=== PATIENT | female | born 1965 | race Caucasian/White ===

== ENCOUNTER → 2019-03-19 10:59 | Outpatient (CLI) | payer OTHER, SELFPAY ==
--- NOTE | 2019-03-19 | DI.US.S_ITS ---
PROCEDURE: US PELVIC COMPLETE INDICATIONS: POSTMENOPAUSAL BLEEDING TECHNIQUE: Real-time scanning was performed of the pelvic organs, with image documentation. Additional endovaginal scanning was necessary due to incomplete visualization of the adnexal and endometrial structures by transabdominal scanning. COMPARISON: None. FINDINGS: Transabdominal scanning: Limited scanning through the kidneys shows no hydronephrosis. No pathologic free abdominal or pelvic fluid. Endovaginal scanning: Uterus: Uterus is normal in size at 4.1 x 5.7 x 7.7 cm cm. The endometrium measures 8.5 mm in combined thickness and appears mildly heterogeneous, raising concern for an early manifestation of underlying neoplasm. Note is made of a midline posterior intramural 1.1 cm fibroid and a right sided posterior intramural 1.4 cm maximal dimension fibroid. Ovaries: The ovaries bilaterally were interrogated but only the right ovary could be located measuring 2.5 x 1.9 x 1.2 cm. Overlying bowel gas obscured visualization of the left ovary. IMPRESSION: Mildly heterogeneous endometrial lining in a postmenopausal patient measuring up to 8.5 mm in maximal combined thickness. This raises concern for whether an early endometrial mass lesion may be superimposed. Gynecological consultation for consideration of endometrial biopsy is recommended given the history of postmenopausal spotting intermittently for over 1.5 years. Nonvisualization of the left ovary, normal appearing right ovary. Dictated by: Riaz Luna M.D. on 03/19/2019 at 13:53 Approved by: Riaz Luna M.D. on 03/19/2019 at 13:56
== END ==
PROVIDERS: Family Provider Family Medicine; PCP Family Medicine; Visit Provider Nurse Practitioner Family
DX: N95.0 Postmenopausal bleeding (principal); D25.1 Intramural leiomyoma of uterus
CPT/HCPCS: 76830; 76856

== ENCOUNTER → 2019-04-10 11:11 | Outpatient (CLI) | payer OTHER, SELFPAY ==
--- NOTE | 2019-04-10 | DI.MG.S_ITS ---
BILATERAL DIGITAL SCREENING MAMMOGRAM 3D/2D WITH CAD: 04/10/2019 CLINICAL: Routine screening. Comparison is made to exams dated: 07/12/2017 mammogram, 06/27/2017 mammogram, and 05/31/2016 mammogram - [facility]. There are scattered fibroglandular elements in both breasts. Current study was also evaluated with a Computer Aided Detection (CAD) system. No significant masses, calcifications, or other findings are seen in either breast. There has been no significant interval change. IMPRESSION: NEGATIVE There is no mammographic evidence of malignancy. A 1 year screening mammogram is recommended. This exam was interpreted at Station ID: [id number]. NOTE: For mammograms, a report in lay terms will be sent to the patient. Approximately 15% of breast malignancies will not be visualized mammographically. In the management of a palpable breast mass, a negative mammogram must not discourage biopsy of a clinically suspicious lesion. Electronically Signed By: Diamond taylor/cisco:04/10/2019 13:15:47 letter sent: Normal Exam ACR BI-RADS Category 1: Negative [id number]
== END ==
PROVIDERS: PCP Family Medicine; Visit Provider Family Medicine
DX: Z13.21 Encounter for screening for nutritional disorder (principal)
CPT/HCPCS: 77063; 77067

== ENCOUNTER 2019-05-07 11:50 | Day surgery (SDC) | payer OTHER, SELFPAY ==
[2019-04-16 14:01] VITALS: BMI 41.5
[2019-05-07] VITALS (10 sets, daily range): BP systolic 118–151; BP diastolic 74–89; PULSE 60–83; RESP 12–16; TEMP 36.8–37; O2SAT 92–100; BMI 40.2
--- NOTE | 2019-05-07 | PATH_ITS ---
[facility] Accession Number: [id number] . 01 Material submitted: . endometrium - ENDOMETRIAL CURETTINGS . 02 Diagnosis: Endometrial Curettings: Fragments of weakly proliferative endometrial tissue and strips of endometrial glandular epithelium; negative for glandular hyperplasia, cytologic atypia, and malignancy. Avulsed portions of squamous and metaplastic squamous mucosa with reactive features; negative for squamous dysplasia and malignancy. V 05/11/2019 0946 Local . 02 Electronically signed: . Claribel Luu MD, Pathologist NPI- [id number] . 01 Gross description: . Received in formalin, labeled endometrial curettings, is turbid mucoid material containing multiple fragments of red-brown tissue (3.6 x 3.0 x 0.3 cm in aggregate). Filtered and entirely submitted in cassette A1. ([id number]) /MRV 05/08/2019 1647 Local . 02 Pathologist provided ICD-10: N85.00 . 02 CPT . 353505 Performed at: 01 [facility] [address] [facility], [place] [employer], [place] [id number] MD Sandeep Akins MD Phone: [phone] Performed at: 02 [facility] [address] [place], [place] [id number] MD Kim Ignacio MD Phone: [phone]
[2019-05-07] MEDS: LACTATED RINGERS 1,000 ML 100 ML IV (13:04)
--- NOTE | 2019-05-07 14:55 | PM.PREOP ---
Pre-operative Note Interval Note History & Physical reviewed/Exam performed by Physician: Yes Changes to H&P: No H&P completed within 30 days and has changed as indicated here:: See outpatient note 04/15/2019
--- NOTE | 2019-05-07 16:07 | SUR.OPER ---
Lithotomy on padded OR bed, head on pillow, arms secured on padded arm boards at <90 degrees abduction. Legs secured in padded yellow fins stirrups.
--- NOTE | 2019-05-07 16:31 | PM.OP.1 ---
Operative Date/Time/Diagnoses Date of procedure: 05/07/19 Time of procedure: 16:32 Pre-op diagnosis: Postmenopausal bleeding Post-op diagnosis: same Procedure & Clinicians Procedure: Hysteroscopy D&C Same procedure as scheduled: Yes Indications: Postmenopausal bleeding Surgeon: Ramya Paula Click Yes if Unassisted: Yes Anesthesia Type: General Operative Notes Findings: Normal exam under anesthesia. Thin endometrium without any intrauterine pathology except for uterine septum Closure Type: not applicable Specimen(s): other (Endometrial curettings) Estimated Blood Loss (mL): 5 Blood products transfused: none Procedure in detail: The patient was brought to the operating room where she underwent general anesthesia. She was placed in low stirrups She was prepped and draped in usual sterile fashion with pulsatile stockings in place and functional, warming in place, antibiotics in prior to beginning the case. Her bladder was drained with in and out catheter. A single-tooth tenaculum was placed on the anterior lip of the cervix and the uterus dilated to #8 Hegar dilator. The hysteroscope was placed into the uterus with a sorbitol solution running and under constant suction. There were no abnormalities that needed to be removed. A endometrial curettage was performed. The endometrial curettage was sent to pathology. The patient went to recovery room in good condition counts of instruments and sponges were correct. Estimated blood loss less than 5 mL. The sorbitol solution I=O approximately 2000 mL. Complications: none Post-operative Condition: stable Disposition: same day surgery Plan for aftercare: Routine post hysteroscopy
[2019-05-07] MEDS: HYDROMORPHONE 2 MG INJ 0.5 MG IV ×4 (16:35→16:50)
== END 2019-05-07 17:38 | disposition home or self-care (01) ==
PROVIDERS: PCP Nurse Practitioner Family; Visit Provider Specialist
PROC: 0UDB8ZZ Extraction of Endometrium, Via Natural or Artificial Opening Endoscopic (ICD-10-PCS; CPT 58558; principal; 2019-05-07 13:15)
DX: N85.00 Endometrial hyperplasia, unspecified (principal); N95.0 Postmenopausal bleeding; Q51.20 Other doubling of uterus, unspecified; E66.01 Morbid (severe) obesity due to excess calories; Z68.41 Body mass index [BMI] 40.0-44.9, adult; G47.33 Obstructive sleep apnea (adult) (pediatric)
CPT/HCPCS: 58558; J1100; J1170; J1885; J2250; J2405; J2704; J3010

== ENCOUNTER 2019-09-14 20:42 | Emergency (ER) | payer OTHER, SELFPAY ==
[2019-09-14 20:45] VITALS: BP 149/79; PULSE 92; RESP 18; TEMP 37.3; O2SAT 96
--- NOTE | 2019-09-14 21:48 | ED.EXTPRO ---
HPI - Extremity Problem General Chief complaint: Extremity Problem,Nontraumatic Stated complaint: right soulder pain Time Seen by Provider: 09/14/19 21:31 Source: patient Mode of arrival: Ambulatory Limitations: no limitations History of Present Illness HPI Narrative: 54-year-old female here for evaluation of right shoulder pain. Patient states she woke up this morning with pain in the shoulder. Has progressively worsened throughout the day. No known trauma. Went to physical therapy today for her bilateral knee pain after that shoulder started to hurt more. Related Data Home Medications Medication Instructions Recorded Confirmed levothyroxine 25 mcg capsule 50 mcg PO DAILY 11/19/18 06/05/19 ibuprofen 600 mg PO Q6H PRN 05/07/19 06/05/19 Respironics Dreamstation CPAP #1 ea 06/04/19 06/04/19 Allergies Allergy/AdvReac Type Severity Reaction Status Date / Time adhesive [ADHESIVE] Allergy Unknown FROM SLEEP Unverified 04/15/19 14:27 LAB ON NECK Review of Systems Constitutional Constitutional: Denies fever(s) ENT Ears, Nose, Mouth, and Throat: Denies disequilibrium Cardiovascular Cardiovascular: Denies chest pain and Denies dyspnea Respiratory Respiratory: Denies dyspnea Gastrointestinal Gastrointestinal: Denies abdominal pain Musculoskeletal Musculoskeletal: Denies tingling Comments: Right shoulder pain Integumentary/Breasts Skin/Breast: Denies rash Neurologic Neurologic: Denies tingling, Denies paresthesias and Denies disequilibrium Hematologic/Lymphatic Hematologic/Lymphatic: Denies easy bleeding and Denies easy bruising Patient History Medical History Hypothyroidism (Suspected) Insomnia (Chronic) Morbid obesity with body mass index of 40.0-49.9 (Chronic) Obstructive sleep apnea of adult (Chronic) Periodic limb movement disorder (PLMD) (Suspected) Radius fracture (Inactive) Social History marital status: details: to Austyn, lives in [place]. disabled. number of children: 2 household members: spouse lives independently: Yes caregiver/support person: No housing: house pets and animals: Yes (2 dogs) occupational status: employed Smoking Status: Never smoker alcohol intake: current substance use type: does not use Smoking Status: Never smoker Exam Initial Vital Signs Initial Vital Signs: Vital Signs Temperature 99.1 F 09/14/19 20:45 Pulse Rate 92 H 09/14/19 20:45 Respiratory Rate 18 09/14/19 20:45 Blood Pressure 149/79 H 09/14/19 20:45 Pulse Oximetry 96 09/14/19 20:45 Const General: cooperative, healthy appearing and comfortable Resp Effort & Inspection: normal respiratory effort Auscultation: clear to auscultation bilaterally Cardio Rate: regular rate Rhythm: regular rhythm Back/Spine/Pelvis Cervical Spine: No cervical spinal tenderness Other: Negative Spurling Skin Lesions: no lesions Rashes: no rashes Neuro Motor: muscle tone normal throughout Sensory Exam: no sensory deficits noted Extrem Other: Patient with tenderness to palpation over the biceps tendon. Positive Neer test. Positive [place]ur test. Patient only able to abduct her arm to 30? without onset of pain. Passively able to abduct her arm past 90?. No tenderness palpation of the AC joint. No scapular tenderness. Psych Appearance: grossly normal and well kempt Course Orders Ordered: Discontinued Medications Acetaminophen/Codeine Phosphate (Tylenol #3 Prepack) 1 bottle MISC SEEINSTR ONE Stop: 09/14/19 22:13 Last Admin: 09/14/19 22:26 Dose: 1 bottle Documented by: CHERYL Ketorolac Tromethamine (Toradol) 30 mg IM NOW ONE Stop: 09/14/19 22:13 Last Admin: 09/14/19 22:26 Dose: 30 mg Documented by: CHERYL Vital Signs Vital signs: Vital Signs - 8 hr 09/14/19 20:45 Temperature 99.1 F Pulse Rate 92 H Respiratory Rate 18 Blood Pressure 149/79 H Pulse Oximetry 96 MDM - Extremity (Nontraumatic) [facility] Narrative Medical decision making narrative: She is neurovascularly intact. No trauma. Low suspicion for bony injury. Will hold on radiologic studies. No radicular symptoms. Low suspicion that this is a cervical radiculopathy. I suspect this is either a biceps tendinopathy verses a rotator cuff sprain or both. She has some physical exam findings of each of these. I did discuss this with her. We did discuss potential shoulder steroid injection however she opted to hold on that for now. Will treat symptomatically. We did discuss the importance of keeping her moving to avoid a frozen shoulder. She was given return precautions and follow-up instructions. She expressed understanding and agreement with plan. Discharge Plan Departure Patient Disposition: Home Clinical Impression: Acute shoulder pain Qualifiers: Laterality: right Qualified Code(s): M25.511 - Pain in right shoulder Discharge Date/Time: 09/14/19 22:34 Instructions: DI for Shoulder Pain Activity Restrictions/Additional Instructions: Tomorrow contact your primary provider for a follow-up. Your early restricted in your activity by the symptoms that you are having. Return to the emergency department for any new or worsening symptoms Prescriptions: No Action ibuprofen 600 mg Tablet 600 mg PO Q6H PRN (Reason: Pain (Scale Score 4-6)) RF: 0 levothyroxine 25 mcg capsule 50 mcg PO DAILY RF: 0 (DME) Respironics Dreamstation CPAP Qty: 1 RF: 0 Referrals: Harley Lopez MD [Primary Care Provider] -
[2019-09-14] MEDS: KETOROLAC 60 MG/2 ML VIAL 30 MG IM (22:26)
[2019-09-14] MEDS: CODEINE/APAP 30/300 PREPACK 1 BOTTLE MISC (22:26)
== END 2019-09-14 22:34 | disposition home or self-care (01) ==
PROVIDERS: Emergency Provider Emergency Medicine; PCP Family Medicine
DX: M25.511 Pain in right shoulder (principal)
CPT/HCPCS: 96372; 99283; J1885

== ENCOUNTER 2019-09-15 07:14 | Emergency (ER) | payer OTHER, SELFPAY ==
[2019-09-15 07:15] VITALS: BP 151/75; PULSE 80; RESP 18; TEMP 37.2; O2SAT 99
[2019-09-15 07:37] VITALS: PULSE 80
--- NOTE | 2019-09-15 07:48 | ED.EXTPRO ---
HPI - Extremity Problem General Chief complaint: Extremity Problem,Nontraumatic Stated complaint: right shoulder pain hurts tingling fingers Time Seen by Provider: 09/15/19 07:44 Source: patient Mode of arrival: Ambulatory Limitations: no limitations History of Present Illness HPI Narrative: Chief complaint: right shoulder pain HPI: The patient is a 54-year-old female who was seen the night before by Dr. Blackwell. He diagnosed her to have a biceps tendinopathy and/or right rotator cuff strain partial tear. The patient states that she went home and went to bed and woke up with worse more intense pain and discomfort associated with shooting pains down her arm to her fingers associated with numbness and tingling. She denied any neck pain jaw pain. Since being discharged she denies any fall or injury or sleeping on her shoulder. She uses CPAP for sleep apnea. She denied any cough. The pain is intolerable and 10/10 in intensity. Old records reveal that she was on hydrocodone which was discontinued. When sitting and resting her pain was 8/10 in intensity. When trying to move it it was 10/10 in nature. She has fractured her left wrist in the past and has a plate of and screws with some open reduction. The patient denies any fever chills sweats. Pain and discomfort of her cause nausea or vomiting. She has no other complaints. 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 She states that in this condition she cannot work. Related Data Home Medications Medication Instructions Recorded Confirmed Respironics Dreamstation CPAP #1 ea 06/04/19 09/15/19 calcium carbonate-vitamin D3 1 tab PO BID 09/15/19 09/15/19 [Calcium 500 + D] levothyroxine 50 mcg PO DAILY 09/15/19 09/15/19 multivitamin 1 tab PO DAILY 09/15/19 09/15/19 turmeric 1 cap PO BID 09/15/19 09/15/19 Previous Rx's Medication Instructions Recorded cyclobenzaprine 10 mg PO TID PRN #14 tab 09/15/19 hydrocodone-acetaminophen [[place]] 1 tab PO Q8H PRN #14 tab 09/15/19 naproxen [Naprosyn] 500 mg PO BID PRN #20 tab 01/28/20 Allergies Allergy/AdvReac Type Severity Reaction Status Date / Time adhesive [ADHESIVE] Allergy Unknown FROM SLEEP Unverified 04/15/19 14:27 LAB ON NECK Review of Systems Review of Systems ROS Unobtainable: All systems reviewed & are unremarkable except as noted in HPI and below Patient History Medical History Hypothyroidism (Suspected) Insomnia (Chronic) Morbid obesity with body mass index of 40.0-49.9 (Chronic) Obstructive sleep apnea of adult (Chronic) Periodic limb movement disorder (PLMD) (Suspected) Radius fracture (Inactive) Social History marital status: details: to Austyn, lives in [place]. disabled. number of children: 2 household members: spouse lives independently: Yes caregiver/support person: No housing: house pets and animals: Yes (2 dogs) occupational status: employed Smoking Status: Never smoker alcohol intake: current substance use type: does not use Smoking Status: Never smoker alcohol intake frequency: 0-2 drinks per day Substance Use Type: does not use Exam Narrative Exam Narrative: PHYSICAL EXAM: CONSTITUTIONAL: Awake, Alert, Oriented, Coherent, appears angry, apprehensive and uncomfortable. Does not appear toxic or ill. HEAD: AT/NC EENT: PERRL, FROM of eyes, no discharge, no nystagmus NECK: Supple, no obvious JVD, Trachea is midline without stridor, no palpable LN or masses. SPINE: No gross deformity, mild tenderness to palpation over the lower cervical and upper thoracic spine without any appreciable bony deformity. There is mild right paraspinous muscle tenderness and spasm. The patient is diffusely tender over the posterior right trapezius muscle area of the supraspinatus muscle and supraspinatus muscle. She is tender to palpation over the apex of the shoulder which includes the biceps triceps and deltoid muscles. The patient absolutely refuses to abduct her shoulder to the horizontal position or to externally rotate her shoulder. She is able to flex and extend her elbow but has tenderness over the biceps tendon. She is able to supinate and pronate her forearm she has good radial pulse able to move her fingers with good sensation and capillary refill. She has full abduction and adduction flexion extension of her fingers. THORAX: No deformity, retractions, chest wall tenderness, subcutaneous air or crepitice. LUNGS: Clear with symmetrical breath sounds without respiratory distress HEART: Normal heart tones, regular rhythm and rate without murmur. ABDOMEN: Soft, non-tender, normal bowel sounds without guarding, rebound, rigidity or palpable mass or organomegaly. EXTREMITIES: As noted above in the examination of the spine.. SKIN: No rash, bruising, petechiae or purpura. NEURO: Awake, alert, oriented, conversive, cranial nerves II-XII are symmetrical and normal, moves all 4 extremities and is ambulatory Initial Vital Signs Initial Vital Signs: Vital Signs Temperature 99 F 09/15/19 07:15 Pulse Rate 80 09/15/19 07:15 Respiratory Rate 18 09/15/19 07:15 Blood Pressure 151/75 H 09/15/19 07:15 Pulse Oximetry 99 09/15/19 07:15 Course Course Course Narrative: 0815 the patient's EKG obtained on September 15 at 07:2 5:14 a.m. reveals a sinus rhythm with a short IN interval of 109 milliseconds. QRS is normal at 90 milliseconds and QTC is normal. The rhythm is sinus with a ventricular rate of 77. There is a narrow Q-wave in lead III with flat T-waves in III and inverted T-wave in lead V1. T-waves are flattened in leads V3, V4, V5, V6,. T-waves are inverted in lead V1. There are no acute diagnostic ST segment changes. 1119 x-rays of the patient's right shoulder are suggestive of internal derangement. Radiology recommends a dedicated MRI of the shoulder since the patient is unable to abduct and move the shoulder without increased pain and discomfort. CT of the patient's cervical spine reveals that the patient has also degenerative arthritis but no other acute pathology. The patient was offered having an MRI performed through the emergency department if they can fitted in which according to Radiology will be approximately 3:00 p.m.. 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 She has elected to wait and have the MRI performed through the emergency department at approximately 3:00 p.m.. 15:57 the patient's MRI of the right shoulder revealed: 1. Mild supraspinatus and infraspinatus tendinopathy without significant tearing 2. Probable anterior deltoid muscle strain/injury. No significant tearing appreciated. 3. Large amount of fluid within the subacromial subdeltoid bursa most likely representing bursitis. Correlate clinically 4. Small superior labial tear (SLAP) 5. Moderate to severe degenerative changes of the acromioclavicular joint. Correlate clinically to exclude subacromial impingement. Mild degenerative changes of the glenohumeral joint. The patient will be placed in a sling. She will be referred to physical therapy and orthopedic surgery for follow-up and evaluation. She will be given a prescription for Naprosyn 500 mg b.i.d. Flexeril 10 mg t.i.d. as needed for muscle spasms and [place] 7.5/325 3 times a day as needed for pain and discomfort number 12 no refills Orders Ordered: Discontinued Medications Cyclobenzaprine HCl (Flexeril) 10 mg PO NOW ONE Stop: 09/15/19 08:01 Last Admin: 09/15/19 08:22 Dose: 10 mg Documented by: MINGO Ketorolac Tromethamine (Toradol) 30 mg IV NOW ONE Stop: 09/15/19 10:44 Last Admin: 09/15/19 10:49 Dose: 30 mg Documented by: PETRA Morphine Sulfate (Morphine) 4 mg IV NOW ONE Stop: 09/15/19 08:01 Last Admin: 09/15/19 08:23 Dose: 4 mg Documented by: MINGO Vital Signs Vital signs: Vital Signs - 8 hr 09/15/19 15:15 Pulse Rate 93 H Respiratory Rate 18 Blood Pressure [Right Arm] 117/76 Pulse Oximetry 94 MDM - Extremity (Nontraumatic) Lab Data Result diagrams: 09/15/19 08:20 09/15/19 08:20 Labs: Lab Results 09/15/19 09/15/19 Range/Units 08:20 08:20 WBC 11.2 H (4.5-11.0) X10^3/uL RBC 4.74 (4.0-5.2) X10^6/uL Hgb 13.9 (12.0-16.0) g/dL Hct 41.9 (36-46) % MCV 88.5 (80-100) fL MCH 29.3 (26-34) PG MCHC 33.1 (30-36) % RDW 14.1 (11.6-14.8) % Plt Count 201 (150-400) X10^3/uL Neut % (Auto) 77.4 H (50-75) % Lymph % (Auto) 14.9 L (25-40) % [place] % (Auto) 5.6 (3-14) % Eos % (Auto) 1.5 L (2-4) % Baso % (Auto) 0.6 (0-2) % Neut # (Auto) 8700 H (2394-2720) /uL Lymph # (Auto) 1700 (4849-6499) /uL [place] # (Auto) 600 (0-900) /uL Eos # (Auto) 200 (0-450) /uL Baso # (Auto) 100 (0-100) /uL ESR 18 (0-20) MM/HR Sodium 141 (137-145) mmol/L Potassium 4.1 (3.4-5.1) mmol/L Chloride 103 (98-107) mmol/L Carbon Dioxide 27 (22-32) mmol/L BUN 21 H (7-17) mg/dL Creatinine 0.60 (0.52-1.04) mg/dL Estimated GFR > 60.0 (>60) mL/min BUN/Creatinine Ratio 35.0 H (6-22) Glucose 118 H (70-100) mg/dL Calcium 9.9 (8.4-10.2) mg/dL C-Reactive Protein 1.4 H (<1.0) mg/dL Discharge Plan Departure Patient Disposition: Home Clinical Impression: Tendinopathy, Tendinopathy of right shoulder Bursitis of shoulder Qualifiers: Laterality: right Qualified Code(s): M75.51 - Bursitis of right shoulder Right shoulder strain Qualifiers: Encounter type: initial encounter Qualified Code(s): S46.911A - Strain of unspecified muscle, fascia and tendon at shoulder and upper arm level, right arm, initial encounter Labial tear Qualifiers: Encounter type: initial encounter Qualified Code(s): S31.41XA - Laceration without foreign body of vagina and vulva, initial encounter Discharge Date/Time: 09/15/19 16:55 Instructions: Shoulder Tendinopathy, DI for Muscle Strain, DI for Bursitis Activity Restrictions/Additional Instructions: You need to follow-up with physical therapy as well as orthopedic surgery for your shoulder. You have muscle strains, tendinopathy, and a bursitis. These problems will not heal rapidly and will need of physical therapy and follow-up or evaluation by Orthopedic surgery. Take the medications as prescribed. Prescriptions: New naproxen [Naprosyn] 500 mg tablet 500 mg PO BID PRN (Reason: pain) Qty: 20 RF: 0 cyclobenzaprine 10 mg tablet 10 mg PO TID PRN (Reason: muscle spasm) Qty: 14 RF: 0 hydrocodone-acetaminophen [[place]] 7.5-325 mg tablet 1 tab PO Q8H PRN (Reason: pain) Qty: 14 RF: 0 No Action levothyroxine 50 mcg tablet 50 mcg PO DAILY RF: 0 multivitamin Tablet 1 tab PO DAILY RF: 0 calcium carbonate-vitamin D3 [Calcium 500 + D] 500 mg(1,250mg) -200 unit Tablet 1 tab PO BID RF: 0 turmeric 1 cap PO BID RF: 0 (DME) Respironics Dreamstation CPAP Qty: 1 RF: 0 Referrals: Amanuel Nazario, PT [Non-Staff] - (right shoulder injury, review MRI of right shoulder. Evaluate and treat 3 times per week for at least 4 weeks ) Harley Lopez MD [Primary Care Provider] - Himanshu Monsalve MD [Physician] - (right shoulder pathology) Stand Alone Forms: Work Release Note
--- NOTE | 2019-09-15 08:00 | DI.RAD.S_ITS ---
PROCEDURE: XR SHOULDER RT MIN 2V INDICATIONS: right shoulder pain limited ROM, unable to abduct TECHNIQUE: 3 views of the shoulder were acquired. COMPARISON: [facility], CT, CT CERVICAL SPINE WO CON, 09/15/2019, 8:30. FINDINGS: Bones: No fractures or dislocations. No suspicious bony lesions. Visualized ribs appear intact. Degenerative changes are seen, with mild subacromial spurring. Soft tissues: No suspicious soft tissue calcifications. Low right lung volume can be seen. IMPRESSION: No acute plain film abnormality can be seen. Degenerative changes are seen. If there is strong clinical suspicion for internal derangement of this joint, please consider a dedicated MRI for further evaluation (assuming that there is no contraindication to MRI). Dictated by: Jimy Connelly M.D. on 09/15/2019 at 8:11 Approved by: Jimy Connelly M.D. on 09/15/2019 at 8:12
[2019-09-15] MEDS: CYCLOBENZAPRINE 10 MG TABLET PO (08:22)
[2019-09-15] MEDS: MORPHINE 4 MG/ML INJ IV (08:23)
[2019-09-15 08:32] LABS: Add Manual Diff / Slide Review NO; Basophils Absolute Auto 100 /uL (0-100); Basophils Percent Auto 0.6 % (0-2); Eosinophils Absolute Auto 200 /uL (0-450); Eosinophils Percent Auto 1.5 % (2-4); Hematocrit 41.9 % (36-46); Hemoglobin 13.9 g/dL (12.0-16.0); Lymphocytes Absolute Auto 1700 /uL (1100-4500); Lymphocytes Percent Auto 14.9 % (25-40); Mean Corpuscular HGB Conc 33.1 % (30-36); Mean Corpuscular Hemoglobin 29.3 PG (26-34); Mean Corpuscular Volume 88.5 fL (80-100); Monocytes Absolute Auto 600 /uL (0-900); Monocytes Percent Auto 5.6 % (3-14); Neutrophils Absolute Auto 8700 /uL (1500-7000); Neutrophils Percent Auto 77.4 % (50-75); Platelet Count 201 X10^3/uL (150-400); Red Blood Cell Count 4.74 X10^6/uL (4.0-5.2); Red Cell Distribution Width 14.1 % (11.6-14.8); White Blood Cell Count 11.2 X10^3/uL (4.5-11.0)
--- NOTE | 2019-09-15 08:34 | DI.CT.S_ITS ---
PROCEDURE: CT CERVICAL SPINE WO CON INDICATIONS: numbness and shooting pain in right arm, tender lower c spin TECHNIQUE: Noncontrast 3 mm thick sections acquired from the skull base to the T4 level. Sagittal and coronal reformats were then constructed. For radiation dose reduction, the following was used: automated exposure control, adjustment of mA and/or kV according to patient size. COMPARISON: [facility], , XR SHOULDER RT MIN 2V, 09/15/2019, 8:29. [facility], , CERVICAL SPINE 2 OR 3 VIEWS, 09/16/2013, 15:22. FINDINGS: Image quality: This examination is somewhat limited by quantum mottle artifact. Bones: No fractures or dislocations. Visualized superior ribs are intact. Degenerative changes are seen, with minimal to mild disc space narrowing at C5-C6, posteriorly directed osteophytes at this level. Milder degenerative changes are seen elsewhere. Soft tissues: Prevertebral soft tissues are normal in thickness. No paravertebral hematomas. No apical pneumothoraces. 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 IMPRESSION: Overall mild degenerative change, without an acute abnormality seen. 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 Dictated by: Jimy Connelly M.D. on 09/15/2019 at 8:08 Approved by: Jimy Connelly M.D. on 09/15/2019 at 8:10
[2019-09-15 08:49] LABS: Blood Urea Nitrogen 21 mg/dL (7-17); C-Reactive Protein Quant 1.4 mg/dL (<1.0); Calcium 9.9 mg/dL (8.4-10.2); Carbon Dioxide 27 mmol/L (22-32); Chloride 103 mmol/L (98-107); Estimated Glomerular Filt Rate > 60.0 mL/min (>60); Glucose 118 mg/dL (70-100); HEMOLYSIS < 15 (0-50); Potassium 4.1 mmol/L (3.4-5.1); Sodium 141 mmol/L (137-145)
[2019-09-15 08:50] LABS: Erythrocyte Sedimentation Rate 18 MM/HR (0-20)
--- NOTE | 2019-09-15 09:19 | PC.NURSE ---
answered call light. Pt states she does not want monitor on because it is annoying. Turned monitor off per pt request. I repositioned pt and reminded her of the bed controls if she needs further adjustments. Pt states her pain is worse again. Notified.
[2019-09-15] MEDS: KETOROLAC 60 MG/2 ML VIAL 30 MG IV (10:49)
--- NOTE | 2019-09-15 11:18 | DI.MRI.S_ITS ---
PROCEDURE: MR SHOULDER RT WO CON INDICATIONS: severe pain in right shoulder ( MRI recommended by Rad) TECHNIQUE: Noncontrast oblique coronal T2 fast spin echo with fat saturation, oblique sagittal T1 spin echo and T2 fast spin echo with fat saturation, axial T1 spin echo and T2 fast spin echo with fat saturation through the shoulder. COMPARISON: [facility], CR, XR SHOULDER RT MIN 2V, 09/15/2019, 8:29. FINDINGS: Image quality: Diagnostic. Rotator cuff: No full-thickness or high-grade partial-thickness tear of the rotator cuff is evident. There is minimal increased signal along the bursal surface of the distal supraspinatus and infraspinatus tendons without significant hearing appreciated. The subscapularis and teres minor tendons are intact. There is no significant atrophy of the rotator cuff muscles. Bones and bursae: No acute fracture, dislocation, or suspicious osseous lesion is identified involving the osseous structures of the right shoulder. There are mild degenerative changes of the glenohumeral joint without a significant glenohumeral joint effusion. Moderate to severe degenerative changes of the acromio clavicular joint are present with undersurface osteophytes and degenerative/reactive marrow changes. A large amount of fluid is contained within the subacromial subdeltoid bursa. Capsule and soft tissues: Evaluation of the glenoid labrum and glenohumeral ligaments is suboptimal without intra-articular contrast. Small para labral cyst along the anterosuperior aspect of the labrum are suggestive of a small superior labral tear that probably extends from the 11 o'clock position to the 1 o'clock position. The long head of the biceps tendon is normally positioned within the bicipital groove and is otherwise intact and unremarkable. No acute injuries are suspected involving the glenohumeral ligaments. Incidental note is made of mild edema along the anterior aspect of the deltoid muscle. IMPRESSION: 1. Mild supraspinatus and infraspinatus tendinopathy without significant hearing. 2. Probable anterior deltoid muscle strain/injury. No significant tearing is appreciated. 3. Large amount of fluid within the subacromial subdeltoid bursa most likely represents bursitis. Please correlate clinically. 4. Small superior labral tear (SLAP tear). 5. Moderate to severe degenerative changes of the acromioclavicular joint. Please correlate clinically to exclude subacromial impingement. 6. Mild degenerative changes of the glenohumeral joint. Dictated by: Vineet Rod M.D. on 09/15/2019 at 14:23 Approved by: Vineet Rod M.D. on 09/15/2019 at 14:32
[2019-09-15 15:15] VITALS: BP 117/76; PULSE 93; RESP 18; O2SAT 94
== END 2019-09-15 16:55 | disposition home or self-care (01) ==
PROVIDERS: Emergency Provider Emergency Medicine; PCP Family Medicine
DX: M67.911 Unspecified disorder of synovium and tendon, right shoulder (principal); M75.51 Bursitis of right shoulder; S46.911A Strain of unspecified muscle, fascia and tendon at shoulder and upper arm level, right arm, initial encounter; S31.41XA Laceration without foreign body of vagina and vulva, initial encounter; R20.2 Paresthesia of skin; M25.511 Pain in right shoulder
CPT/HCPCS: 36415; 72125; 73030; 73221; 80048; 85025; 85651; 86140; 93005; 96374; 96375; 99285; J1885; J2270

== ENCOUNTER → 2021-02-22 09:48 | Outpatient (CLI) | payer OTHER, SELFPAY ==
[2021-02-22 11:34] LABS: COVID19 -Nasal RAPID Negative (Negative)
== END ==
PROVIDERS: PCP Student in an Organized Health Care Education/Training Program; Visit Provider Physician Assistant
DX: Z01.812 Encounter for preprocedural laboratory examination (principal); Z20.822 Contact with and (suspected) exposure to COVID-19
CPT/HCPCS: 87635

== ENCOUNTER 2021-02-24 15:03 | Day surgery (SDC) | payer OTHER, SELFPAY ==
--- NOTE | 2021-02-24 12:21 | P.HP_ITS ---
History of Present Illness History of Present Illness Date Patient Seen: 02/24/21 Chief complaint: SDC Narrative: 55 Years Old Female seen today for consideration of a screening colonoscopy. There have been no lower GI symptoms suggesting disease such as change in bowel habits, bleeding, abdominal pain or anemia. There's been no family history of colon cancer or colon polyps. Overall health issues have been stable, including no major cardiac events for at least 6 weeks. 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 Household Members: spouse-Austyn Mandel Education: [place] Patient History Medical History Hypothyroidism Insomnia Morbid obesity with body mass index of 40.0-49.9 Obstructive sleep apnea of adult Periodic limb movement disorder (PLMD) Radius fracture Family & Social History Social History: household members spouse lives independently Yes caregiver/support person No Tobacco & Substance use: Smoking Status Never smoker alcohol intake current alcohol intake frequency 0-2 drinks per day Substance Use Type does not use Meds Home Medications and Allergies Home Medications Medication Instructions Recorded Confirmed Type Respironics Dreamstation CPAP #1 ea 06/04/19 09/15/19 History calcium carbonate 500 mg (1,250 1 tab PO BID 09/15/19 02/24/21 History mg)-vitamin D3 200 unit tablet (Calcium 500 + D) levothyroxine 50 mcg tablet 50 mcg PO DAILY 09/15/19 09/15/19 History multivitamin 1 tab PO DAILY 09/15/19 02/24/21 History naproxen 500 mg tablet (Naprosyn) 500 mg PO BID PRN #20 tab 09/15/19 Rx turmeric 1 cap PO BID 09/15/19 09/15/19 History adalimumab 40 mg/0.8 mL mg SUBCUT 02/24/21 History subcutaneous pen kit (Humira Pen) methotrexate sodium 2.5 mg tablet mg 02/24/21 History Allergies Allergy/AdvReac Type Severity Reaction Status Date / Time adhesive [ADHESIVE] Allergy Unknown FROM SLEEP Unverified 04/15/19 14:27 LAB ON NECK Review of Systems Review of Systems Narrative: See HPI. Exam Narrative Exam Narrative: General: well developed, well nourished, in no acute distress, Head: normocephalic and atraumatic, Lungs: normal respiratory effort, clear bilaterally to auscultation, no wheezes rales or rhonchi. Heart: normal rate and regular rhythm, no murmurs, rubs, gallops, or clicks, Abdomen: abdomen soft and non-tender without masses, organomegaly, or abdominal wall hernias, bowel sounds positive. Skin: intact without suspicious lesions or rashes, Psych: alert and cooperative; normal mood and affect; normal attention span and concentration; cognition, remote and recent memory appear to be intact, Assessment & Plan Assessment & Plan narrative: 1. Screening for colon cancer Plan for colonoscopy. The nature and character of the procedure as well as anticipated results were discussed. The possibility of not completing the procedure was also discussed. Possible complications including aspiration pneumonia, bleeding, perforation and reaction to medications either for sedation or preparation and missed lesions were discussed. Questions were answered and proceeding to the colonoscopy was elected. Informed consent signed. I sincerely appreciate the referral allowing me to participate in this patient's care. Please contact me with any questions or concerns. 2. BMI greater than 40 3. ANALI on BIPAP Plan: Due to patient's comorbidities including ANALI requiring BiPAP and BMI greater than 40, will consult MD anesthesia on this high risk patient.
--- NOTE | 2021-02-24 12:25 | PM.OP.ENDO ---
Operative Date/Time/Diagnoses Date of procedure: 02/24/21 Procedure Notes SCOAP/Timeout: 3:49 p.m. Procedure in detail: ENDOSCOPIST: Zaria Nunez MD Anesthesiologist: Dr. Cochran Sedation start time: 3:50 p.m. Sedation end time: 4:13 p.m. PROCEDURE: Colonoscopy INDICATIONS: 1. Screening for colon cancer MEDICATION: Levsin 0.125 mg sublingual, incremental doses of propofol until appropriate level sedation achieved. ASA CLASS: 3 CECAL WITHDRAWAL TIME: 6 minutes COMPLICATIONS: None. EXTENT OF PROCEDURE: Cecum. QUALITY OF PREP: Good with portions of liquid stool. PROCEDURE: Prior to insertion of the colonoscope, a digital rectal examination was accomplished with circumferential palpation of the distal rectal mucosa without significant findings being noted. The high-definition colonoscope was passed into the rectum in the usual fashion and advanced over to the cecum without difficulty. The ileocecal valve, appendiceal stoma, and medial wall all could be inspected and no abnormalities were seen. ASCENDING COLON: As the colonoscope was withdrawn, care was taken to expose and inspect the haustral folds and no abnormalities were seen. HEPATIC FLEXURE: Normal, no polyps, diverticula or other abnormalities. TRANSVERSE COLON: Normal, no polyps, diverticula or other abnormalities. DESCENDING COLON: Normal, no polyps, diverticula or other abnormalities. SIGMOID COLON: Normal, no polyps, diverticula or other abnormalities. RECTUM: Normal. J maneuver was produced. There was no significant perianal disease. The J maneuver was broken. The remainder of the rectum was inspected and there was moderate external hemorrhoid disease. The scope was withdrawn. IMPRESSION: 1. Normal colonoscopy 2. External hemorrhoids, moderate PLAN: 1. Follow-up in clinic status post pathology results. The possibility of a missed lesion including a malignancy has been discussed with the patient previously. Potential alarm symptoms have been discussed and should be reported immediately.
[2021-02-24 15:26] VITALS: BP 134/76; PULSE 86; RESP 14; TEMP 36.3; O2SAT 95; BMI 43.0
[2021-02-24] MEDS: LACTATED RINGERS 1,000 ML 200 ML IV (15:46)
[2021-02-24] MEDS: HYOSCYAMINE 0.125 MG TABLET PO (15:46)
[2021-02-24 16:21] VITALS: BP 109/63; BP 121/72; PULSE 79; PULSE 80; RESP 14; RESP 16; TEMP 36.9; O2SAT 97; O2SAT 99
[2021-02-24 16:25] VITALS: BP 106/64; PULSE 86; RESP 14; O2SAT 99
[2021-02-24 16:26] VITALS: BP 106/63; PULSE 77; RESP 16; O2SAT 98
[2021-02-24 16:31] VITALS: BP 118/70; PULSE 73; RESP 16; O2SAT 100
[2021-02-24 16:45] VITALS: BP 118/71; PULSE 70; RESP 16; TEMP 36.4; O2SAT 98
== END 2021-02-24 16:50 | disposition home or self-care (01) ==
PROVIDERS: PCP Family Medicine; Referring Provider Student in an Organized Health Care Education/Training Program; Visit Provider Student in an Organized Health Care Education/Training Program
PROC: 0DJD8ZZ Inspection of Lower Intestinal Tract, Via Natural or Artificial Opening Endoscopic (ICD-10-PCS; CPT 45378; principal; 2021-02-24 16:00)
DX: Z12.11 Encounter for screening for malignant neoplasm of colon (principal); G47.33 Obstructive sleep apnea (adult) (pediatric); M06.9 Rheumatoid arthritis, unspecified; E66.9 Obesity, unspecified; Z68.41 Body mass index [BMI] 40.0-44.9, adult; K64.8 Other hemorrhoids
CPT/HCPCS: 45378

== ENCOUNTER 2024-04-14 09:45 | Outpatient (RCR) | payer OTHER, SELFPAY ==
--- NOTE | 2024-02-24 15:50 | PT.OIE ---
Current Diagnoses Rheumatoid arthritis, unspecified (02/24/24) Stiffness of right ankle, not elsewhere classified (02/24/24) Contracture of muscle, right lower leg (02/24/24) Plantar fascial fibromatosis (02/24/24) Achilles tendinitis, right leg (02/24/24) Peroneal tendinitis, right leg (02/24/24) Other lack of coordination (02/24/24) Weakness (02/24/24) Past Medical History (Last Reviewed 12/24/21 @ 15:36 by Tracie Del Castillo PA-C) Hypothyroidism Insomnia Morbid obesity with body mass index of 40.0-49.9 Obstructive sleep apnea of adult Periodic limb movement disorder (PLMD) Radius fracture Visit Care Team Role Provider Type Myles Madison MD Family Provider Physician Primary Care Provider Specialty: Family Practice Address: [facility] [place], [address] Email: [email or web address] Jerry Vieira DPM Attending Provider Non-Staff Referring Provider Specialty: Podiatry Address: [facility], [facility] [place], [address] Email: Physical Therapy Initial Evaluation PT-OP-A Visit Information Start: 02/24/24 07:29 Freq: Status: Active Protocol: Document 02/24/24 07:29 NM (Rec: 02/24/24 08:19 NM [id number]) Out-Patient Physical Therapy Visit Information Visit Information Visit Type Initial Evaluation Visit Start Time 07:38 Visit Stop Time 08:15 Visit Number 1 Evaluation Information Evaluation Date 02/24/24 Precautions Precautions Hx of RA (R shoulder), polyarthritis (L knee pain) PT-OP-B Current Condition Start: 02/24/24 07:29 Freq: Status: Active Protocol: Document 02/24/24 07:29 NM (Rec: 02/24/24 08:19 NM [id number]) Current Condition History of Current Condition Onset Date several months ago Current Complaints pain, mobility History of Current Condition Pt presents with chronic R ankle pain, beginning several months ago and saw doctor in Aug/Sep 2023. Pt has hx of B plantar fasciitis, had PT. She also had foot pain along lateral ankle. Currently, pt has R achilles pain, along posterior ankle. She reports improving but still bothersome . Pt reports that her MD was wanting her to be pain free by 02/06 or else he would cast her or consider surgery. She sleeps in a brace that keeps her ankles stuck at 90 degrees. Her shoe-wear also determines pain levels. Pt has PMH of RA and polyarthritis in her L knee. Takes daily tylenol and ibuprofen, which helps her pain levels considerably. 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 Pt reports impairments with stairs, ambulation, sleep, driving. Pt reports edema along her ankle after WB for extended periods. 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 PT-OP-C Subjective Start: 02/24/24 07:29 Freq: Status: Active Protocol: Document 02/24/24 07:29 NM (Rec: 02/24/24 08:19 NM [id number]) OP-PT Subjective Patient Comments Patient Comments Pt consents to participate in evaluation Patient Questionnaires Foot & Ankle Ability Measure- ADL and Sports FAAM-ADL Score 32/84 FAAM-Sport Score 2/32 Lower Extremity Functional Scale LEFS Score 26/80 OP-PT Pain Assessment Location R ankle Pain Location Details posterior ankle, along Achilles Intensity 4 Scale Used Numeric (0 - 10) Description Aching,Sharp Description- Other 7-8/10 with WB Frequency Constant Radiating Location none Variations/Patterns no numbness or tingling Pain Aggravating Factors Changing Position,ADL's, Activity,Exercise,Standing, Walking,Stair Climbing Other Pain Aggravating Factors driving, static stance, WB, sleeping Pain Alleviating Factors Medication,Elevation,Rest Other Pain Alleviating Factors pillow under foot PT-OP-F Manual Assessment Start: 02/24/24 07:29 Freq: Status: Active Protocol: Document 02/24/24 07:29 NM (Rec: 02/24/24 13:00 NM [id number]) Manual Assessments Soft Tissue Assessment Soft Tissue Mobility Assessment Limitations in B ankle dorsiflexion related to heel cord length. Edema along R ankle, localized swelling at R Achilles insertion and at midsection, thickening. No palpable nodules along R plantar fascia Joint Mobility Assessment Joint Mobility Assessment Limitations in R great toe extension, ray mobility PT-OP-G Mobility & Gait Start: 02/24/24 07:29 Freq: Status: Active Protocol: Document 02/24/24 07:29 NM (Rec: 02/24/24 08:19 NM [id number]) OP Gait Assessment Gait Distance (Feet) 150 Assistive Devices Assistive Device None Gait Deviations General Gait Pattern Antalgic,Decreased Feet Clearance Factors Limiting Gait Function Factors Limiting Gait Function Decreased Activity Tolerance, Decreased Strength,Limited Range of Motion,Pain,Poor Balance Comments Gait Comments Demonstrates limitations in B ankle dorsiflexion, very stiff with limited toe off or propulsion during gait. Feet are very flat, slight pronation with stance, overall very rigid. Demos narrow RENÉ PT-OP-J Posture/Palpation/Skin Start: 02/24/24 07:29 Freq: Status: Active Protocol: Document 02/24/24 07:29 NM (Rec: 02/24/24 15:47 NM [id number]) Posture Evaluation Position Standing Head/C-Spine Posture Forward Head T-Spine Posture Increased Kyphosis L-Spine Posture Increased Lordosis Weight Distribution Weight Shifted Left,Decreased Wt.Bear on (R) Hip Posture (L) Externally Rotated,(R) Externally Rotated Knee Posture (L) Genu Valgus,(R) Genu Valgus Ankle/Foot Posture (L) Plantarflexed,(R) Plantarflexed,(L) Pronated,(R) Pronated Foot Arch (L) Low Arch,(R) Low Arch Toe Posture (L) Flexed Toes,(R) Flexed Toes Palpation Assessment Location R ankle Palpation Findings Edema,Soft Tissue Tightness, Tenderness Palpation Details Global edema in R ankle Increased redness, tenderness and swelling of R ankle along Achilles at insertion and midportion Tenderness along posterior heel and calcaneus Thickened R achilles tendon PT-OP-K Range of Motion Start: 02/24/24 07:29 Freq: Status: Active Protocol: Document 02/24/24 07:29 NM (Rec: 02/24/24 08:19 NM [id number]) Ankle and Foot Goniometric Range of Motion Ankle and Foot Right Inversion 30 Eversion 15 Comments pain with eversion, mild pain with DF. Dorsiflexion: lacking 2 form neutral with knee flexed, lacking 5 deg from neutral with knee extended Left Dorsiflexion with Knee Flexed 0 Plantarflexion 50 Inversion 30 Eversion 20 Comments neutral DF; lacking 5 deg from neutral with leg straight PT-OP-L Special Tests Start: 02/24/24 07:29 Freq: Status: Active Protocol: Document 02/24/24 07:29 NM (Rec: 02/24/24 08:19 NM [id number]) Special Tests Foot/Ankle Special Tests Windlass Test Results - Comments demos small increase in arch height but denies pain Yanes Test Results - Comments tender but observable plantarflexion PT-OP-M Strength Start: 02/24/24 07:29 Freq: Status: Active Protocol: Document 02/24/24 07:29 NM (Rec: 02/24/24 08:19 NM [id number]) Hip Strength Hip Manual Muscle Testing Right Flexion (L2) 4- Good- Extension (S1) 4- Good- Abduction 4- Good- Adduction 4 Good External Rotation 4 Good Internal Rotation 4 Good Left Flexion (L2) 4 Good Extension (S1) 4- Good- Abduction 4- Good- Adduction 4 Good External Rotation 4 Good Internal Rotation 4 Good Comments Compensates with trunk Knee Strength Knee Manual Muscle Testing Right Flexion (S2) 4 Good Extension (L3) 4 Good Left Flexion (S2) 4 Good Extension (L3) 4 Good Ankle/Foot Strength Ankle and Foot Manual Muscle Testing Right Dorsiflexion (L4) 4- Good- Inversion 4- Good- Eversion (S1) 4- Good- Comments Plantarflexion: unable to perform 1 single leg heel raise; can perform 3 bilaterally; 3+/5 when tested in sitting Left Dorsiflexion (L4) 4 Good Inversion 4 Good Eversion (S1) 4 Good Comments Plantarflexion: 9 single leg, challenging and fatiguing; 4/5 when tested in sitting B Heel raises: 3 PT-OP-Q Treatments Start: 02/24/24 07:29 Freq: Status: Active Protocol: Document 02/24/24 07:29 NM (Rec: 02/24/24 13:00 NM [id number]) Therapeutic Exercises Sitting Exercises great toe ext stretch Side right Equipment Used hand assisting with stretch Reps/Minutes 60 Comments pain free foot intrinsics Sitting Exercise Name 1. short arch raises, 2. great toe lift, 3. toes 2-5 lifts Side right Reps/Minutes 10 ea Comments cued correct execution, pain free, increased time Self-Care/Home Management Treatment Education Patient Education Home Exercise Program,Pain Management Other Education Educated on shoe wear for support especially at arch and to limit ankle pronation, brief education on activity modification PT-OP-T Assessment and Plan Start: 02/24/24 07:29 Freq: Status: Active Protocol: Document 02/24/24 07:29 NM (Rec: 02/24/24 08:19 NM [id number]) Physical Therapy Assessment Rehab Potential Rehabilitation Potential Good Evaluation Complexity Number of Personal Factors/Comorbidities 1-2 Number of Body Systems Impaired 1-2 Clinical Presentation at Evaluation Stable Impairments Impairments Activity Tolerance,Balance, Edema,Functional Activities, Functional Mobility,Gait, Integument,Pain,Posture,ROM, Sensation,Soft Tissue Mobility ,Strength Other Concerns Barriers to Rehabilitation Pt has RA, which limits her activity tolerance and pain management levels. 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 and to begin pt goal of ability to tolerate standing exercise for weight loss or ADLs LTG Duration 12 weeks Six Impairment ankle strength Process Control Specialist Goal (LTG) Pt will increase R global ankle strength to at least 4+/ 5 without increase in baseline pain in order to demonstrate improved ankle stability during gait, stance, and ADLs LTG Duration 12 weeks Five Impairment strength: ankle plantarflexion Short Term Goal (STG) Pt will be able to perform at least 2 sets of 10 B heel raises without increase in baseline pain or compensation in order to demonstrate improved plantarflexion strength for gait propulsion and ADLs STG Duration 6 weeks Mcfp Goal (LTG) Pt will be able to perform at least 10 single leg heel raises on RLE without increase in baseline pain or compensation in order to demonstrate improved plantarflexion strength for gait propulsion and ADLs LTG Duration 12 weeks Four Impairment strength: hip flex/abd/ext strength 4-/5 MMT Short Term Goal (STG) Pt will improve R hip flex/ext /abd strength to at least 4/5 in order to demonstrate improved proximal stability for stairs, gait, ADLs STG Duration 8 weeks Process Control Specialist Goal (LTG) Pt will improve R hip flex/ext /abd strength to at least 4+/5 in order to demonstrate improved proximal stability for stairs, gait, ADLs LTG Duration 12 weeks Three Impairment ROM: B ankle dorsiflexion limited Mcfp Goal (LTG) Pt will improve L ankle dorsiflexion AROM to at least 3 deg above neutral in order to demonstrates improved ankle mobility for gait and stairs LTG Duration 12 weeks Two Impairment ROM: R ankle dorsiflexion 2 deg below neutral Short Term Goal (STG) Pt will improve R ankle dorsiflexion AROM to at least neutral in order to demonstrate improved Achilles length and mobility for gait/ stairs STG Duration 8 weeks Mcfp Goal (LTG) Pt will improve R ankle dorsiflexion AROM to at least 2 deg above neutral in order to demonstrate improved Achilles length and mobility for gait/stairs LTG Duration 12 weeks One Impairment activity tolerance/QOL: FAAM 32/84 (ADL), 2/32 (sport); LEFS 26/80 Short Term Goal (STG) Pt will increase ADL FAAM score by at least 8 points (1 MCID) in order to demonstrate improved symptom management and activity tolerance for ADLs STG Duration 6 weeks Mcfp Goal (LTG) Pt will increase ADL FAAM score by at least 16 points (2 MCID) in order to demonstrate improved symptom management and activity tolerance for ADLs LTG Duration 12 weeks Assessment Summary Assessment Pt is a 58 y.o. female presenting with R Achilles pain. Symptoms are consistent with diagnosis. She has swelling and tenderness at her R heel, in addition to both the midportion and insertion of her R Achilles. Pt's R Achilles tendon is also thickened compared to LLE. Pt has impairments in ability to perform strength, ROM, stairs, stand, ambulate, sleep, perform ADLs and job requirements. She has limitations in B ankle dorsiflexion, RLE more limited than LLE, which influences gait. She can perform few B heel raises, but is unable to perform any single leg heel raises on her RLE due to pain and weakness. Globally, pt also has decreased R hip and ankle strength. Pt also has low arches bilaterally, pronates during stance phase, and has very rigid gait pattern at ankle with limited propulsion. Pt has been using a heel lift and sleeps in braces at night. PT educated pt on exam findings and plan of care, including progressive tendon loading. Initiated HEP with foot intrinsics exercises to promote instrinsic strength. Pt would benefit from skilled PT for progressive R Achilles tendon loading, in addition to global strengthening and ROM in order to improve symptom management, ability to weight bear with less pain, and to improve ability to perform ADLs and job requirements. Physical Therapy Plan Frequency and Duration Frequency of Treatment 1-2x/wk Duration of treatment (weeks) 12 Plan of Care Start Date 02/24/24 Plan of Care End Date 05/22/24 Therapeutic Interventions Therapeutic Interventions Balance Training,Gait Training ,Home Exercise Program,Joint Mobilizations,Manual Therapy, Neuromuscular Re-education, Patient/Caregiver Education, Self-Care/Home Management, Sensory Integration,Soft Tissue Mobilization,Taping, Therapeutic Activities, Therapeutic Exercises Modalities Cold Pack/Ice Massage,Electric Stimulation,Hot Packs Next Visit Focus/Plan Next Note Type Treatment Note Next Visit Plan Manual treatment: STM, joint mobilization to increase DF Initiated HEP for achilles: seated heel raises, bilateral heel raises, trial eccentric heel raise, continue with foot intrinsics
--- NOTE | 2024-02-26 15:36 | PT.OTN ---
Current Diagnoses Rheumatoid arthritis, unspecified (02/26/24) Stiffness of right ankle, not elsewhere classified (02/26/24) Contracture of muscle, right lower leg (02/26/24) Plantar fascial fibromatosis (02/26/24) Achilles tendinitis, right leg (02/26/24) Peroneal tendinitis, right leg (02/26/24) Other lack of coordination (02/26/24) Weakness (02/26/24) Physical Therapy Treatment Note PT-OP-A Visit Information Start: 02/24/24 07:29 Freq: Status: Active Protocol: Document 02/26/24 12:59 NM (Rec: 02/26/24 13:47 NM [id number]) Out-Patient Physical Therapy Visit Information Visit Information Visit Type Treatment Note Visit Note allergy to paper tape Visit Start Time 13:02 Visit Stop Time 13:45 Visit Number 2 Evaluation Information Evaluation Date 02/24/24 Precautions Precautions Hx of RA (R shoulder), polyarthritis (L knee pain) PT-OP-B Current Condition Start: 02/24/24 07:29 Freq: Status: Active Protocol: Document 02/24/24 07:29 NM (Rec: 02/24/24 08:19 NM [id number]) Current Condition History of Current Condition Onset Date several months ago Current Complaints pain, mobility History of Current Condition Pt presents with chronic R ankle pain, beginning several months ago and saw doctor in Aug/Sep 2023. Pt has hx of B plantar fasciitis, had PT. She also had foot pain along lateral ankle. Currently, pt has R achilles pain, along posterior ankle. She reports improving but still bothersome . Pt reports that her MD was wanting her to be pain free by 02/06 or else he would cast her or consider surgery. She sleeps in a brace that keeps her ankles stuck at 90 degrees. Her shoe-wear also determines pain levels. Pt has PMH of RA and polyarthritis in her L knee. Takes daily tylenol and ibuprofen, which helps her pain levels considerably. 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 Pt reports impairments with stairs, ambulation, sleep, driving. Pt reports edema along her ankle after WB for extended periods. 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 She used the electronic carts when shopping . States 4-01/26. PT-OP-F Manual Assessment Start: 02/24/24 07:29 Freq: Status: Active Protocol: Document 02/24/24 07:29 NM (Rec: 02/24/24 13:00 NM [id number]) Manual Assessments Soft Tissue Assessment Soft Tissue Mobility Assessment Limitations in B ankle dorsiflexion related to heel cord length. Edema along R ankle, localized swelling at R Achilles insertion and at midsection, thickening. No palpable nodules along R plantar fascia Joint Mobility Assessment Joint Mobility Assessment Limitations in R great toe extension, ray mobility PT-OP-G Mobility & Gait Start: 02/24/24 07:29 Freq: Status: Active Protocol: Document 02/24/24 07:29 NM (Rec: 02/24/24 08:19 NM [id number]) OP Gait Assessment Gait Distance (Feet) 150 Assistive Devices Assistive Device None Gait Deviations General Gait Pattern Antalgic,Decreased Feet Clearance Factors Limiting Gait Function Factors Limiting Gait Function Decreased Activity Tolerance, Decreased Strength,Limited Range of Motion,Pain,Poor Balance Comments Gait Comments Demonstrates limitations in B ankle dorsiflexion, very stiff with limited toe off or propulsion during gait. Feet are very flat, slight pronation with stance, overall very rigid. Demos narrow RENÉ PT-OP-J Posture/Palpation/Skin Start: 02/24/24 07:29 Freq: Status: Active Protocol: Document 02/24/24 07:29 NM (Rec: 02/24/24 15:47 NM [id number]) Posture Evaluation Position Standing Head/C-Spine Posture Forward Head T-Spine Posture Increased Kyphosis L-Spine Posture Increased Lordosis Weight Distribution Weight Shifted Left,Decreased Wt.Bear on (R) Hip Posture (L) Externally Rotated,(R) Externally Rotated Knee Posture (L) Genu Valgus,(R) Genu Valgus Ankle/Foot Posture (L) Plantarflexed,(R) Plantarflexed,(L) Pronated,(R) Pronated Foot Arch (L) Low Arch,(R) Low Arch Toe Posture (L) Flexed Toes,(R) Flexed Toes Palpation Assessment Location R ankle Palpation Findings Edema,Soft Tissue Tightness, Tenderness Palpation Details Global edema in R ankle Increased redness, tenderness and swelling of R ankle along Achilles at insertion and midportion Tenderness along posterior heel and calcaneus Thickened R achilles tendon PT-OP-K Range of Motion Start: 02/24/24 07:29 Freq: Status: Active Protocol: Document 02/24/24 07:29 NM (Rec: 02/24/24 08:19 NM [id number]) Ankle and Foot Goniometric Range of Motion Ankle and Foot Right Inversion 30 Eversion 15 Comments pain with eversion, mild pain with DF. Dorsiflexion: lacking 2 form neutral with knee flexed, lacking 5 deg from neutral with knee extended Left Dorsiflexion with Knee Flexed 0 Plantarflexion 50 Inversion 30 Eversion 20 Comments neutral DF; lacking 5 deg from neutral with leg straight PT-OP-L Special Tests Start: 02/24/24 07:29 Freq: Status: Active Protocol: Document 02/24/24 07:29 NM (Rec: 02/24/24 08:19 NM [id number]) Special Tests Foot/Ankle Special Tests Windlass Test Results - Comments demos small increase in arch height but denies pain Yanes Test Results - Comments tender but observable plantarflexion PT-OP-M Strength Start: 02/24/24 07:29 Freq: Status: Active Protocol: Document 02/24/24 07:29 NM (Rec: 02/24/24 08:19 NM [id number]) Hip Strength Hip Manual Muscle Testing Right Flexion (L2) 4- Good- Extension (S1) 4- Good- Abduction 4- Good- Adduction 4 Good External Rotation 4 Good Internal Rotation 4 Good Left Flexion (L2) 4 Good Extension (S1) 4- Good- Abduction 4- Good- Adduction 4 Good External Rotation 4 Good Internal Rotation 4 Good Comments Compensates with trunk Knee Strength Knee Manual Muscle Testing Right Flexion (S2) 4 Good Extension (L3) 4 Good Left Flexion (S2) 4 Good Extension (L3) 4 Good Ankle/Foot Strength Ankle and Foot Manual Muscle Testing Right Dorsiflexion (L4) 4- Good- Inversion 4- Good- Eversion (S1) 4- Good- Comments Plantarflexion: unable to perform 1 single leg heel raise; can perform 3 bilaterally; 3+/5 when tested in sitting Left Dorsiflexion (L4) 4 Good Inversion 4 Good Eversion (S1) 4 Good Comments Plantarflexion: 9 single leg, challenging and fatiguing; 4/5 when tested in sitting B Heel raises: 3 PT-OP-Q Treatments Start: 02/24/24 07:29 Freq: Status: Active Protocol: Document 02/26/24 12:59 NM (Rec: 02/26/24 13:47 NM [id number]) Therapeutic Exercises Sidelying Exercises hip abduction Sidelying Exercise Name with IR/DF Side bilateral Resistance AROM Reps/Minutes 2x10 with 3 Comments cued for form Sitting Exercises hip abduction Sitting Exercise Name glute medius isometric Side bilateral Resistance level 2 band at thighs Reps/Minutes 60 heel raises Side bilateral Resistance AROM Reps/Minutes 3x10 with 1' break between sets Comments reports activation, no increase in pain at tendon during/immediately post great toe ext stretch Sitting Exercise Name performed in both sitting and standing for alternative if knee pain Side bilateral Equipment Used hand assisting with stretch Reps/Minutes 60 Comments pain free, edu to block other toes in sitting foot intrinsics Sitting Exercise Name HEP review: 1. short arch raises, 2. great toe lift AROM , 3. toes 2-5 lifts Side right Reps/Minutes 15 ea Comments improved activation today but still challenging Standing Exercises heel raises Standing Exercise Name double leg Side bilateral Resistance AROM Equipment Used small teal ball between ankles for alignment Reps/Minutes 3x10 with 1' break between sets Comments cued neutral foot position; no increase in pain at tendon during/immed post Manual Therapy Treatment Consent Patient gave verbal consent for manual Yes treatment Soft Tissue Mobilization R ankle/foot Body Location peroneals, tibialis, achilles, calf, plantar fascia Mobilization Type Rolling,Strumming Intensity/Depth Moderate Body Position Hooklying Comments Initiated superficial and progressed to moderate intensity globally at R ankle, performing gentle rolling distal > proximal, then strumming across achilles tendon. Performed gentle plantar fascial mobilization. Monitored for pain. Tenderness only in calf muscle belly Joint Mobilizations R ankle/foot Joint talocrural Direction post Grade II Body Position Hooklying Reps/Duration 2x30 Comments For pain reduction, trial tolerance for mobilizations. Pt monitored for pain, tolerated well Self-Care/Home Management Treatment Education Patient Education Home Exercise Program,Joint Protection,Pain Management Other Education HEP: seated heel raise, standing heel raise Education about rationale behind progressive tendon loading program, importance of following HEP protocol and careful monitoring of symptoms during/immediately after/day after PT-OP-T Assessment and Plan Start: 02/24/24 07:29 Freq: Status: Active Protocol: Document 02/26/24 12:59 NM (Rec: 02/26/24 13:47 NM [id number]) Physical Therapy Assessment Goals Seven Impairment standing Fdc Goal (LTG) Pt will report no limitation in standing time due to R ankle pain in 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 and to begin pt goal of ability to tolerate standing exercise for weight loss or ADLs LTG Duration 12 weeks Six Impairment ankle strength Fdc Goal (LTG) Pt will increase R global ankle strength to at least 4+/ 5 without increase in baseline pain in order to demonstrate improved ankle stability during gait, stance, and ADLs LTG Duration 12 weeks Five Impairment strength: ankle plantarflexion Short Term Goal (STG) Pt will be able to perform at least 2 sets of 10 B heel raises without increase in baseline pain or compensation in order to demonstrate improved plantarflexion strength for gait propulsion and ADLs STG Duration 6 weeks [employer] Equipment Mechanic Goal (LTG) Pt will be able to perform at least 10 single leg heel raises on RLE without increase in baseline pain or compensation in order to demonstrate improved plantarflexion strength for gait propulsion and ADLs LTG Duration 12 weeks Four Impairment strength: hip flex/abd/ext strength 4-/5 MMT Short Term Goal (STG) Pt will improve R hip flex/ext /abd strength to at least 4/5 in order to demonstrate improved proximal stability for stairs, gait, ADLs STG Duration 8 weeks Fdc Goal (LTG) Pt will improve R hip flex/ext /abd strength to at least 4+/5 in order to demonstrate improved proximal stability for stairs, gait, ADLs LTG Duration 12 weeks Three Impairment ROM: B ankle dorsiflexion limited [employer] Equipment [employer]ic Goal (LTG) Pt will improve L ankle dorsiflexion AROM to at least 3 deg above neutral in order to demonstrates improved ankle mobility for gait and stairs LTG Duration 12 weeks Two Impairment ROM: R ankle dorsiflexion 2 deg below neutral Short Term Goal (STG) Pt will improve R ankle dorsiflexion AROM to at least neutral in order to demonstrate improved Achilles length and mobility for gait/ stairs STG Duration 8 weeks [employer] Equipment [employer]ic Goal (LTG) Pt will improve R ankle dorsiflexion AROM to at least 2 deg above neutral in order to demonstrate improved Achilles length and mobility for gait/stairs LTG Duration 12 weeks One Impairment activity tolerance/QOL: FAAM (ADL), (sport); LEFS Short Term Goal (STG) Pt will increase ADL FAAM score by at least 8 points (1 MCID) in order to demonstrate improved symptom management and activity tolerance for ADLs STG Duration 6 weeks [employer] Equipment [employer]ic Goal (LTG) Pt will increase ADL FAAM score by at least 16 points (2 MCID) in order to demonstrate improved symptom management and activity tolerance for ADLs LTG Duration 12 weeks Assessment Summary Assessment Pt tolerated session well, able to perform all heel raises without Achilles pain during or immediately afterward. Educated to monitor symptoms next day to determine tolerance to exercises. Cued for form, requires ball for alignment in standing. Seated heel raise more challenging for pt than in standing. Reviewed foot intrinsic exercises provided at evaluation, which pt able to perform well with minimal cueing. Initiated sidelying hip abduction and glute medius activation, cueing only for form. Fatiguing for pt, but minimal compensations at trunk . Initiated soft tissue mobilization and R ankle dorsiflexion mobilizations to improve R ankle mobility. Pt tolerated well, reporting less tendon pain and more ankle mobility at end of session. She would benefit from skilled PT for progressive Achilles tendon loading and dorsiflexion mobility in order to improve activity tolerance and symptom management. Physical Therapy Plan Frequency and Duration Frequency of Treatment 1-2x/wk Duration of treatment (weeks) 12 Plan of Care Start Date 02/24/24 Plan of Care End Date 05/22/24 Therapeutic Interventions Therapeutic Interventions Balance Training,Gait Training ,Home Exercise Program,Joint Mobilizations,Manual Therapy, Neuromuscular Re-education, Patient/Caregiver Education, Self-Care/Home Management, Sensory Integration,Soft Tissue Mobilization,Taping, Therapeutic Activities, Therapeutic Exercises Modalities Cold Pack/Ice Massage,Electric Stimulation,Hot Packs Next Visit Focus/Plan Next Note Type Treatment Note Next Visit Plan Manual treatment: STM, joint mobilization to increase DF Review HEP and tolerance for seated/standing heel raises achilles: seated heel raises, bilateral heel raises. 3x10 with break for ea set. If good tolerance, progress to resisted heel raises in sitting, trial eccentric heel raise. Continue with glute med /max strength (s/l hip abd vs side step, hip ext), start LAQ
--- NOTE | 2024-03-03 15:48 | PT.OTN ---
Current Diagnoses Rheumatoid arthritis, unspecified (03/03/24) Stiffness of right ankle, not elsewhere classified (03/03/24) Contracture of muscle, right lower leg (03/03/24) Plantar fascial fibromatosis (03/03/24) Achilles tendinitis, right leg (03/03/24) Peroneal tendinitis, right leg (03/03/24) Other lack of coordination (03/03/24) Weakness (03/03/24) Physical Therapy Treatment Note PT-OP-A Visit Information Start: 02/24/24 07:29 Freq: Status: Active Protocol: Document 03/03/24 13:42 AB (Rec: 03/03/24 15:45 AB [id number]) Out-Patient Physical Therapy Visit Information Visit Information Visit Type Treatment Note Visit Note allergy to paper tape Visit [email or web address] Access Code: [email or web address] Visit Start Time 13:53 Visit Stop Time 14:32 Visit Number 3 Number of SENIOR CONTROLS ENGINEER Visits 1 Evaluation Information Evaluation Date 02/24/24 Precautions Precautions Hx of RA (R shoulder), polyarthritis (L knee pain) PT-OP-B Current Condition Start: 02/24/24 07:29 Freq: Status: Active Protocol: Document 02/24/24 07:29 NM (Rec: 02/24/24 08:19 NM [id number]) Current Condition History of Current Condition Onset Date several months ago Current Complaints pain, mobility History of Current Condition Pt presents with chronic R ankle pain, beginning several months ago and saw doctor in Aug/Sep 2023. Pt has hx of B plantar fasciitis, had PT. She also had foot pain along lateral ankle. Currently, pt has R achilles pain, along posterior ankle. She reports improving but still bothersome . Pt reports that her MD was wanting her to be pain free by 02/06 or else he would cast her or consider surgery. She sleeps in a brace that keeps her ankles stuck at 90 degrees. Her shoe-wear also determines pain levels. Pt has PMH of RA and polyarthritis in her L knee. Takes daily tylenol and ibuprofen, which helps her pain levels considerably. 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 Pt reports impairments with stairs, ambulation, sleep, driving. Pt reports edema along her ankle after WB for extended periods. 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 Patient rates pain 4/10 seated right foot back and bottom. PT-OP-F Manual Assessment Start: 02/24/24 07:29 Freq: Status: Active Protocol: Document 02/24/24 07:29 NM (Rec: 02/24/24 13:00 NM [id number]) Manual Assessments Soft Tissue Assessment Soft Tissue Mobility Assessment Limitations in B ankle dorsiflexion related to heel cord length. Edema along R ankle, localized swelling at R Achilles insertion and at midsection, thickening. No palpable nodules along R plantar fascia Joint Mobility Assessment Joint Mobility Assessment Limitations in R great toe extension, ray mobility PT-OP-G Mobility & Gait Start: 02/24/24 07:29 Freq: Status: Active Protocol: Document 02/24/24 07:29 NM (Rec: 02/24/24 08:19 NM [id number]) OP Gait Assessment Gait Distance (Feet) 150 Assistive Devices Assistive Device None Gait Deviations General Gait Pattern Antalgic,Decreased Feet Clearance Factors Limiting Gait Function Factors Limiting Gait Function Decreased Activity Tolerance, Decreased Strength,Limited Range of Motion,Pain,Poor Balance Comments Gait Comments Demonstrates limitations in B ankle dorsiflexion, very stiff with limited toe off or propulsion during gait. Feet are very flat, slight pronation with stance, overall very rigid. Demos narrow RENÉ PT-OP-J Posture/Palpation/Skin Start: 02/24/24 07:29 Freq: Status: Active Protocol: Document 02/24/24 07:29 NM (Rec: 02/24/24 15:47 NM [id number]) Posture Evaluation Position Standing Head/C-Spine Posture Forward Head T-Spine Posture Increased Kyphosis L-Spine Posture Increased Lordosis Weight Distribution Weight Shifted Left,Decreased Wt.Bear on (R) Hip Posture (L) Externally Rotated,(R) Externally Rotated Knee Posture (L) Genu Valgus,(R) Genu Valgus Ankle/Foot Posture (L) Plantarflexed,(R) Plantarflexed,(L) Pronated,(R) Pronated Foot Arch (L) Low Arch,(R) Low Arch Toe Posture (L) Flexed Toes,(R) Flexed Toes Palpation Assessment Location R ankle Palpation Findings Edema,Soft Tissue Tightness, Tenderness Palpation Details Global edema in R ankle Increased redness, tenderness and swelling of R ankle along Achilles at insertion and midportion Tenderness along posterior heel and calcaneus Thickened R achilles tendon PT-OP-K Range of Motion Start: 02/24/24 07:29 Freq: Status: Active Protocol: Document 02/24/24 07:29 NM (Rec: 02/24/24 08:19 NM [id number]) Ankle and Foot Goniometric Range of Motion Ankle and Foot Right Inversion 30 Eversion 15 Comments pain with eversion, mild pain with DF. Dorsiflexion: lacking 2 form neutral with knee flexed, lacking 5 deg from neutral with knee extended Left Dorsiflexion with Knee Flexed 0 Plantarflexion 50 Inversion 30 Eversion 20 Comments neutral DF; lacking 5 deg from neutral with leg straight PT-OP-L Special Tests Start: 02/24/24 07:29 Freq: Status: Active Protocol: Document 02/24/24 07:29 NM (Rec: 02/24/24 08:19 NM [id number]) Special Tests Foot/Ankle Special Tests Windlass Test Results - Comments demos small increase in arch height but denies pain Yanes Test Results - Comments tender but observable plantarflexion PT-OP-M Strength Start: 02/24/24 07:29 Freq: Status: Active Protocol: Document 02/24/24 07:29 NM (Rec: 02/24/24 08:19 NM [id number]) Hip Strength Hip Manual Muscle Testing Right Flexion (L2) 4- Good- Extension (S1) 4- Good- Abduction 4- Good- Adduction 4 Good External Rotation 4 Good Internal Rotation 4 Good Left Flexion (L2) 4 Good Extension (S1) 4- Good- Abduction 4- Good- Adduction 4 Good External Rotation 4 Good Internal Rotation 4 Good Comments Compensates with trunk Knee Strength Knee Manual Muscle Testing Right Flexion (S2) 4 Good Extension (L3) 4 Good Left Flexion (S2) 4 Good Extension (L3) 4 Good Ankle/Foot Strength Ankle and Foot Manual Muscle Testing Right Dorsiflexion (L4) 4- Good- Inversion 4- Good- Eversion (S1) 4- Good- Comments Plantarflexion: unable to perform 1 single leg heel raise; can perform 3 bilaterally; 3+/5 when tested in sitting Left Dorsiflexion (L4) 4 Good Inversion 4 Good Eversion (S1) 4 Good Comments Plantarflexion: 9 single leg, challenging and fatiguing; 4/5 when tested in sitting B Heel raises: 3 PT-OP-Q Treatments Start: 02/24/24 07:29 Freq: Status: Active Protocol: Document 03/03/24 13:42 AB (Rec: 03/03/24 15:45 AB [id number]) Therapeutic Exercises Sitting Exercises AROM DF Sitting Exercise Name AROM HEP Side bilateral Reps/Minutes X15 Comments verbal cues, post manual therapy hip abduction Sitting Exercise Name glute medius isometric HEP Side bilateral Resistance level 2 band at thighs Reps/Minutes 60 and 3X 10 without hold heel raises Side bilateral Resistance AROM Reps/Minutes 3x10 with 1' break between sets Comments reports activation, no increase in pain at tendon during/immediately post Standing Exercises mini squat with band Side bilateral Resistance level 2 band Reps/Minutes X10 heel raises Standing Exercise Name double leg Side bilateral Resistance AROM Equipment Used small teal ball between ankles for alignment Reps/Minutes 3x10 with 1' break between sets Comments cued neutral foot position; no increase in pain at tendon during/immed post Manual Therapy Treatment Soft Tissue Mobilization R ankle/foot Body Location Calf muscles Mobilization Type Cross-Friction,Rolling Body Position Prone Joint Mobilizations R ankle/foot Joint Mulligan with movement TC mobilization Direction ap Grade III Body Position Standing Reps/Duration 2X10 PT-OP-T Assessment and Plan Start: 02/24/24 07:29 Freq: Status: Active Protocol: Document 03/03/24 13:42 AB (Rec: 03/03/24 15:45 AB [id number]) Physical Therapy Assessment Goals Seven Impairment standing Prison Goal (LTG) Pt will report no limitation in standing time due to R ankle pain in 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 and to begin pt goal of ability to tolerate standing exercise for weight loss or ADLs LTG Duration 12 weeks Six Impairment ankle strength Network Support Engineer Goal (LTG) Pt will increase R global ankle strength to at least 4+/ 5 without increase in baseline pain in order to demonstrate improved ankle stability during gait, stance, and ADLs LTG Duration 12 weeks Five Impairment strength: ankle plantarflexion Short Term Goal (STG) Pt will be able to perform at least 2 sets of 10 B heel raises without increase in baseline pain or compensation in order to demonstrate improved plantarflexion strength for gait propulsion and ADLs STG Duration 6 weeks Network Support Engineer Goal (LTG) Pt will be able to perform at least 10 single leg heel raises on RLE without increase in baseline pain or compensation in order to demonstrate improved plantarflexion strength for gait propulsion and ADLs LTG Duration 12 weeks Four Impairment strength: hip flex/abd/ext strength 4-/5 MMT Short Term Goal (STG) Pt will improve R hip flex/ext /abd strength to at least 4/5 in order to demonstrate improved proximal stability for stairs, gait, ADLs STG Duration 8 weeks Prison Goal (LTG) Pt will improve R hip flex/ext /abd strength to at least 4+/5 in order to demonstrate improved proximal stability for stairs, gait, ADLs LTG Duration 12 weeks Three Impairment ROM: B ankle dorsiflexion limited Prison Goal (LTG) Pt will improve L ankle dorsiflexion AROM to at least 3 deg above neutral in order to demonstrates improved ankle mobility for gait and stairs LTG Duration 12 weeks Two Impairment ROM: R ankle dorsiflexion 2 deg below neutral Short Term Goal (STG) Pt will improve R ankle dorsiflexion AROM to at least neutral in order to demonstrate improved Achilles length and mobility for gait/ stairs STG Duration 8 weeks Network Support Engineer Goal (LTG) Pt will improve R ankle dorsiflexion AROM to at least 2 deg above neutral in order to demonstrate improved Achilles length and mobility for gait/stairs LTG Duration 12 weeks One Impairment activity tolerance/QOL: FAAM 32/84 (ADL), (sport); LEFS Short Term Goal (STG) Pt will increase ADL FAAM score by at least 8 points (1 MCID) in order to demonstrate improved symptom management and activity tolerance for ADLs STG Duration 6 weeks Network Support Engineer Goal (LTG) Pt will increase ADL FAAM score by at least 16 points (2 MCID) in order to demonstrate improved symptom management and activity tolerance for ADLs LTG Duration 12 weeks Assessment Summary Assessment [place] reports feeling better end of session, comments right ankle feels better than left with AROM DF post manual therapy. Physical Therapy Plan Frequency and Duration Frequency of Treatment 1-2x/wk Duration of treatment (weeks) 12 Plan of Care Start Date 02/24/24 Plan of Care End Date 05/22/24 Next Visit Focus/Plan Next Note Type Treatment Note Next Visit Plan Manual treatment: STM, joint mobilization to increase DF Review HEP and tolerance for seated/standing heel raises achilles: bilateral heel raises. 3x10 with break for ea set. If good tolerance, progress to resisted heel raises in sitting, trial eccentric heel raise. Continue with glute med/max strength ( s/l hip abd vs side step, hip ext), start LAQ
--- NOTE | 2024-03-05 09:00 | PT.OTN ---
Current Diagnoses Rheumatoid arthritis, unspecified (03/05/24) Stiffness of right ankle, not elsewhere classified (03/05/24) Contracture of muscle, right lower leg (03/05/24) Plantar fascial fibromatosis (03/05/24) Achilles tendinitis, right leg (03/05/24) Peroneal tendinitis, right leg (03/05/24) Other lack of coordination (03/05/24) Weakness (03/05/24) Physical Therapy Treatment Note PT-OP-A Visit Information Start: 02/24/24 07:29 Freq: Status: Active Protocol: Document 03/05/24 07:27 NM (Rec: 03/05/24 08:17 NM [id number]) Out-Patient Physical Therapy Visit Information Visit Information Visit Type Treatment Note Visit Note allergy to paper tape Visit Start Time 07:32 Visit Stop Time 08:15 Visit Number 4 Evaluation Information Evaluation Date 02/24/24 Precautions Precautions Hx of RA (R shoulder), polyarthritis (L knee pain) PT-OP-B Current Condition Start: 02/24/24 07:29 Freq: Status: Active Protocol: Document 02/24/24 07:29 NM (Rec: 02/24/24 08:19 NM [id number]) Current Condition History of Current Condition Onset Date several months ago Current Complaints pain, mobility History of Current Condition Pt presents with chronic R ankle pain, beginning several months ago and saw doctor in Aug/Sep 2023. Pt has hx of B plantar fasciitis, had PT. She also had foot pain along lateral ankle. Currently, pt has R achilles pain, along posterior ankle. She reports improving but still bothersome . Pt reports that her MD was wanting her to be pain free by 02/06 or else he would cast her or consider surgery. She sleeps in a brace that keeps her ankles stuck at 90 degrees. Her shoe-wear also determines pain levels. Pt has PMH of RA and polyarthritis in her L knee. Takes daily tylenol and ibuprofen, which helps her pain levels considerably. 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 Pt reports impairments with stairs, ambulation, sleep, driving. Pt reports edema along her ankle after WB for extended periods. 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 She reports that she is very sore and swollen. She has been doing a lot of standing and working in order to help her be able to come home, has been cleaning out home. She reports heel raises are difficult but not painful. Starting at 4-5/10 in R ankle/ foot. Will be going back to school on 04/16 PT-OP-F Manual Assessment Start: 02/24/24 07:29 Freq: Status: Active Protocol: Document 02/24/24 07:29 NM (Rec: 02/24/24 13:00 NM [id number]) Manual Assessments Soft Tissue Assessment Soft Tissue Mobility Assessment Limitations in B ankle dorsiflexion related to heel cord length. Edema along R ankle, localized swelling at R Achilles insertion and at midsection, thickening. No palpable nodules along R plantar fascia Joint Mobility Assessment Joint Mobility Assessment Limitations in R great toe extension, ray mobility PT-OP-G Mobility & Gait Start: 02/24/24 07:29 Freq: Status: Active Protocol: Document 02/24/24 07:29 NM (Rec: 02/24/24 08:19 NM [id number]) OP Gait Assessment Gait Distance (Feet) 150 Assistive Devices Assistive Device None Gait Deviations General Gait Pattern Antalgic,Decreased Feet Clearance Factors Limiting Gait Function Factors Limiting Gait Function Decreased Activity Tolerance, Decreased Strength,Limited Range of Motion,Pain,Poor Balance Comments Gait Comments Demonstrates limitations in B ankle dorsiflexion, very stiff with limited toe off or propulsion during gait. Feet are very flat, slight pronation with stance, overall very rigid. Demos narrow RENÉ PT-OP-J Posture/Palpation/Skin Start: 02/24/24 07:29 Freq: Status: Active Protocol: Document 02/24/24 07:29 NM (Rec: 02/24/24 15:47 NM [id number]) Posture Evaluation Position Standing Head/C-Spine Posture Forward Head T-Spine Posture Increased Kyphosis L-Spine Posture Increased Lordosis Weight Distribution Weight Shifted Left,Decreased Wt.Bear on (R) Hip Posture (L) Externally Rotated,(R) Externally Rotated Knee Posture (L) Genu Valgus,(R) Genu Valgus Ankle/Foot Posture (L) Plantarflexed,(R) Plantarflexed,(L) Pronated,(R) Pronated Foot Arch (L) Low Arch,(R) Low Arch Toe Posture (L) Flexed Toes,(R) Flexed Toes Palpation Assessment Location R ankle Palpation Findings Edema,Soft Tissue Tightness, Tenderness Palpation Details Global edema in R ankle Increased redness, tenderness and swelling of R ankle along Achilles at insertion and midportion Tenderness along posterior heel and calcaneus Thickened R achilles tendon PT-OP-K Range of Motion Start: 02/24/24 07:29 Freq: Status: Active Protocol: Document 02/24/24 07:29 NM (Rec: 02/24/24 08:19 NM [id number]) Ankle and Foot Goniometric Range of Motion Ankle and Foot Right Inversion 30 Eversion 15 Comments pain with eversion, mild pain with DF. Dorsiflexion: lacking 2 form neutral with knee flexed, lacking 5 deg from neutral with knee extended Left Dorsiflexion with Knee Flexed 0 Plantarflexion 50 Inversion 30 Eversion 20 Comments neutral DF; lacking 5 deg from neutral with leg straight PT-OP-L Special Tests Start: 02/24/24 07:29 Freq: Status: Active Protocol: Document 02/24/24 07:29 NM (Rec: 02/24/24 08:19 NM [id number]) Special Tests Foot/Ankle Special Tests Windlass Test Results - Comments demos small increase in arch height but denies pain Yanes Test Results - Comments tender but observable plantarflexion PT-OP-M Strength Start: 02/24/24 07:29 Freq: Status: Active Protocol: Document 02/24/24 07:29 NM (Rec: 02/24/24 08:19 NM [id number]) Hip Strength Hip Manual Muscle Testing Right Flexion (L2) 4- Good- Extension (S1) 4- Good- Abduction 4- Good- Adduction 4 Good External Rotation 4 Good Internal Rotation 4 Good Left Flexion (L2) 4 Good Extension (S1) 4- Good- Abduction 4- Good- Adduction 4 Good External Rotation 4 Good Internal Rotation 4 Good Comments Compensates with trunk Knee Strength Knee Manual Muscle Testing Right Flexion (S2) 4 Good Extension (L3) 4 Good Left Flexion (S2) 4 Good Extension (L3) 4 Good Ankle/Foot Strength Ankle and Foot Manual Muscle Testing Right Dorsiflexion (L4) 4- Good- Inversion 4- Good- Eversion (S1) 4- Good- Comments Plantarflexion: unable to perform 1 single leg heel raise; can perform 3 bilaterally; 3+/5 when tested in sitting Left Dorsiflexion (L4) 4 Good Inversion 4 Good Eversion (S1) 4 Good Comments Plantarflexion: 9 single leg, challenging and fatiguing; 4/5 when tested in sitting B Heel raises: 3 PT-OP-Q Treatments Start: 02/24/24 07:29 Freq: Status: Active Protocol: Document 03/05/24 07:27 NM (Rec: 03/05/24 08:17 NM [id number]) Therapeutic Exercises Sitting Exercises AROM DF Sitting Exercise Name AROM ankle pump Side bilateral Reps/Minutes X15 Comments verbal cues, post manual therapy heel raises Side bilateral Resistance 8# db Reps/Minutes 3x10 with 1' break between sets Comments reports activation, no increase in pain at tendon during/immediately post Standing Exercises side steps Standing Exercise Name trialed in PT Side bilateral Resistance level 2 band at thighs Reps/Minutes 2x20 ft ea mini squat with band Side bilateral Resistance level 2 band at thighs Equipment Used wash cloths next to band for comfort Reps/Minutes 2x10 Comments cued center RENÉ over midfoot heel raises Standing Exercise Name double leg (trialed eccentric but unable d/t inc pain) Side bilateral Resistance AROM Equipment Used small teal ball between ankles for alignment Reps/Minutes 1x15, 2x10 with 1' break between sets Comments cued neutral foot position; no increase in pain at tendon during/immed post Manual Therapy Treatment Consent Patient gave verbal consent for manual Yes treatment Soft Tissue Mobilization R ankle/foot Body Location peroneals, tibialis, calf Mobilization Type Rolling,Strumming Intensity/Depth Superficial Body Position supine,prone Joint Mobilizations R ankle/foot Joint talocrural Direction post Grade III Body Position Supine Reps/Duration 4x30 Comments For improved mobility, tolerates well, monitored for pain throughout mobilization Self-Care/Home Management Treatment Education Patient Education Home Exercise Program,Pain Management Other Education Educated that if needs to prioritize exercises to focus on heel raises (especially standing) to promote tendon loading, but with elevation and swelling management since upright more frequently during day PT-OP-T Assessment and Plan Start: 02/24/24 07:29 Freq: Status: Active Protocol: Document 03/05/24 07:27 NM (Rec: 03/05/24 08:17 NM [id number]) Physical Therapy Assessment Goals Seven Impairment standing Usp Goal (LTG) Pt will report no limitation in standing time due to R ankle pain in 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 and to begin pt goal of ability to tolerate standing exercise for weight loss or ADLs LTG Duration 12 weeks Six Impairment ankle strength Charrer Goal (LTG) Pt will increase R global ankle strength to at least 4+/ 5 without increase in baseline pain in order to demonstrate improved ankle stability during gait, stance, and ADLs LTG Duration 12 weeks Five Impairment strength: ankle plantarflexion Short Term Goal (STG) Pt will be able to perform at least 2 sets of 10 B heel raises without increase in baseline pain or compensation in order to demonstrate improved plantarflexion strength for gait propulsion and ADLs STG Duration 6 weeks Usp Goal (LTG) Pt will be able to perform at least 10 single leg heel raises on RLE without increase in baseline pain or compensation in order to demonstrate improved plantarflexion strength for gait propulsion and ADLs LTG Duration 12 weeks Four Impairment strength: hip flex/abd/ext strength 4-/5 MMT Short Term Goal (STG) Pt will improve R hip flex/ext /abd strength to at least 4/5 in order to demonstrate improved proximal stability for stairs, gait, ADLs STG Duration 8 weeks Charrer Goal (LTG) Pt will improve R hip flex/ext /abd strength to at least 4+/5 in order to demonstrate improved proximal stability for stairs, gait, ADLs LTG Duration 12 weeks Three Impairment ROM: B ankle dorsiflexion limited Usp Goal (LTG) Pt will improve L ankle dorsiflexion AROM to at least 3 deg above neutral in order to demonstrates improved ankle mobility for gait and stairs LTG Duration 12 weeks Two Impairment ROM: R ankle dorsiflexion 2 deg below neutral Short Term Goal (STG) Pt will improve R ankle dorsiflexion AROM to at least neutral in order to demonstrate improved Achilles length and mobility for gait/ stairs STG Duration 8 weeks Usp Goal (LTG) Pt will improve R ankle dorsiflexion AROM to at least 2 deg above neutral in order to demonstrate improved Achilles length and mobility for gait/stairs LTG Duration 12 weeks One Impairment activity tolerance/QOL: FAAM 3284 (ADL), (sport); LEFS Short Term Goal (STG) Pt will increase ADL FAAM score by at least 8 points (1 MCID) in order to demonstrate improved symptom management and activity tolerance for ADLs STG Duration 6 weeks Usp Goal (LTG) Pt will increase ADL FAAM score by at least 16 points (2 MCID) in order to demonstrate improved symptom management and activity tolerance for ADLs LTG Duration 12 weeks Assessment Summary Assessment Reports no pain at end of session in R ankle. Pt reports mild increase in R achilles tendon pain following standing heel raises when corrected for form, especially to prevent rocking forward vs upright. Trialed increasing number of reps for standing heel raises, but unable due to tendon irritation. Pt able to progress to resisted seated heel raise with low level resistance. Continues to respond well to manual therapy , especially R talocrural mobilization. Remainder of session emphasizing glute strength and equal WB. Pt would benefit from skilled PT for R ankle mobility and progressive tendon loading in order to improve symptom management and activity tolerance with standing/ ambulation. Physical Therapy Plan Frequency and Duration Frequency of Treatment 1-2x/wk Duration of treatment (weeks) 12 Plan of Care Start Date 02/24/24 Plan of Care End Date 05/22/24 Therapeutic Interventions Therapeutic Interventions Balance Training,Gait Training ,Home Exercise Program,Joint Mobilizations,Manual Therapy, Neuromuscular Re-education, Patient/Caregiver Education, Self-Care/Home Management, Sensory Integration,Soft Tissue Mobilization,Taping, Therapeutic Activities, Therapeutic Exercises Modalities Cold Pack/Ice Massage,Electric Stimulation,Hot Packs Next Visit Focus/Plan Next Note Type Treatment Note Next Visit Plan check tolerance to side steps, resisted seated heel raise. Cont w/ resistance (increase wt) if daaynna, trial deficit heel raise on low step if ok with standing heel raise (pain free ) Manual treatment: STM, joint mobilization to increase DF Review HEP and tolerance for seated/standing heel raises achilles: bilateral heel raises. 3x10 with break for ea set. If good tolerance, progress to resisted heel raises in sitting, trial eccentric heel raise. Continue with glute med/max strength ( s/l hip abd vs side step, hip ext), start LAQ
--- NOTE | 2024-03-10 12:11 | PT.OTN ---
Current Diagnoses Rheumatoid arthritis, unspecified (03/10/24) Stiffness of right ankle, not elsewhere classified (03/10/24) Contracture of muscle, right lower leg (03/10/24) Plantar fascial fibromatosis (03/10/24) Achilles tendinitis, right leg (03/10/24) Peroneal tendinitis, right leg (03/10/24) Other lack of coordination (03/10/24) Weakness (03/10/24) Physical Therapy Treatment Note PT-OP-A Visit Information Start: 02/24/24 07:29 Freq: Status: Active Protocol: Document 03/10/24 08:11 AB (Rec: 03/10/24 12:10 AB [id number]) Out-Patient Physical Therapy Visit Information Visit Information Visit Type Treatment Note Visit Note allergy to paper tape Access Code: [email or web address] Visit Start Time 09:49 Visit Stop Time 10:30 Visit Number 5 Number of TRIM AND BURR OPERATOR Visits 1 Evaluation Information Evaluation Date 02/24/24 Precautions Precautions Hx of RA (R shoulder), polyarthritis (L knee pain) PT-OP-B Current Condition Start: 02/24/24 07:29 Freq: Status: Active Protocol: Document 02/24/24 07:29 NM (Rec: 02/24/24 08:19 NM [id number]) Current Condition History of Current Condition Onset Date several months ago Current Complaints pain, mobility History of Current Condition Pt presents with chronic R ankle pain, beginning several months ago and saw doctor in Aug/Sep 2023. Pt has hx of B plantar fasciitis, had PT. She also had foot pain along lateral ankle. Currently, pt has R achilles pain, along posterior ankle. She reports improving but still bothersome . Pt reports that her MD was wanting her to be pain free by 02/06 or else he would cast her or consider surgery. She sleeps in a brace that keeps her ankles stuck at 90 degrees. Her shoe-wear also determines pain levels. Pt has PMH of RA and polyarthritis in her L knee. Takes daily tylenol and ibuprofen, which helps her pain levels considerably. 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 Pt reports impairments with stairs, ambulation, sleep, driving. Pt reports edema along her ankle after WB for extended periods. 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 Patient reports her spouse discharged himself from SNF early. Patient reports the seated HR was ok, but side stepping aggravated the knee into the next day. PT-OP-F Manual Assessment Start: 02/24/24 07:29 Freq: Status: Active Protocol: Document 02/24/24 07:29 NM (Rec: 02/24/24 13:00 NM [id number]) Manual Assessments Soft Tissue Assessment Soft Tissue Mobility Assessment Limitations in B ankle dorsiflexion related to heel cord length. Edema along R ankle, localized swelling at R Achilles insertion and at midsection, thickening. No palpable nodules along R plantar fascia Joint Mobility Assessment Joint Mobility Assessment Limitations in R great toe extension, ray mobility PT-OP-G Mobility & Gait Start: 02/24/24 07:29 Freq: Status: Active Protocol: Document 02/24/24 07:29 NM (Rec: 02/24/24 08:19 NM [id number]) OP Gait Assessment Gait Distance (Feet) 150 Assistive Devices Assistive Device None Gait Deviations General Gait Pattern Antalgic,Decreased Feet Clearance Factors Limiting Gait Function Factors Limiting Gait Function Decreased Activity Tolerance, Decreased Strength,Limited Range of Motion,Pain,Poor Balance Comments Gait Comments Demonstrates limitations in B ankle dorsiflexion, very stiff with limited toe off or propulsion during gait. Feet are very flat, slight pronation with stance, overall very rigid. Demos narrow RENÉ PT-OP-J Posture/Palpation/Skin Start: 02/24/24 07:29 Freq: Status: Active Protocol: Document 02/24/24 07:29 NM (Rec: 02/24/24 15:47 NM [id number]) Posture Evaluation Position Standing Head/C-Spine Posture Forward Head T-Spine Posture Increased Kyphosis L-Spine Posture Increased Lordosis Weight Distribution Weight Shifted Left,Decreased Wt.Bear on (R) Hip Posture (L) Externally Rotated,(R) Externally Rotated Knee Posture (L) Genu Valgus,(R) Genu Valgus Ankle/Foot Posture (L) Plantarflexed,(R) Plantarflexed,(L) Pronated,(R) Pronated Foot Arch (L) Low Arch,(R) Low Arch Toe Posture (L) Flexed Toes,(R) Flexed Toes Palpation Assessment Location R ankle Palpation Findings Edema,Soft Tissue Tightness, Tenderness Palpation Details Global edema in R ankle Increased redness, tenderness and swelling of R ankle along Achilles at insertion and midportion Tenderness along posterior heel and calcaneus Thickened R achilles tendon PT-OP-K Range of Motion Start: 02/24/24 07:29 Freq: Status: Active Protocol: Document 02/24/24 07:29 NM (Rec: 02/24/24 08:19 NM [id number]) Ankle and Foot Goniometric Range of Motion Ankle and Foot Right Inversion 30 Eversion 15 Comments pain with eversion, mild pain with DF. Dorsiflexion: lacking 2 form neutral with knee flexed, lacking 5 deg from neutral with knee extended Left Dorsiflexion with Knee Flexed 0 Plantarflexion 50 Inversion 30 Eversion 20 Comments neutral DF; lacking 5 deg from neutral with leg straight PT-OP-L Special Tests Start: 02/24/24 07:29 Freq: Status: Active Protocol: Document 02/24/24 07:29 NM (Rec: 02/24/24 08:19 NM [id number]) Special Tests Foot/Ankle Special Tests Windlass Test Results - Comments demos small increase in arch height but denies pain Yanes Test Results - Comments tender but observable plantarflexion PT-OP-M Strength Start: 02/24/24 07:29 Freq: Status: Active Protocol: Document 02/24/24 07:29 NM (Rec: 02/24/24 08:19 NM [id number]) Hip Strength Hip Manual Muscle Testing Right Flexion (L2) 4- Good- Extension (S1) 4- Good- Abduction 4- Good- Adduction 4 Good External Rotation 4 Good Internal Rotation 4 Good Left Flexion (L2) 4 Good Extension (S1) 4- Good- Abduction 4- Good- Adduction 4 Good External Rotation 4 Good Internal Rotation 4 Good Comments Compensates with trunk Knee Strength Knee Manual Muscle Testing Right Flexion (S2) 4 Good Extension (L3) 4 Good Left Flexion (S2) 4 Good Extension (L3) 4 Good Ankle/Foot Strength Ankle and Foot Manual Muscle Testing Right Dorsiflexion (L4) 4- Good- Inversion 4- Good- Eversion (S1) 4- Good- Comments Plantarflexion: unable to perform 1 single leg heel raise; can perform 3 bilaterally; 3+/5 when tested in sitting Left Dorsiflexion (L4) 4 Good Inversion 4 Good Eversion (S1) 4 Good Comments Plantarflexion: 9 single leg, challenging and fatiguing; 4/5 when tested in sitting B Heel raises: 3 PT-OP-Q Treatments Start: 02/24/24 07:29 Freq: Status: Active Protocol: Document 03/10/24 08:11 AB (Rec: 03/10/24 12:10 AB [id number]) Therapeutic Exercises Sitting Exercises hip abduction Sitting Exercise Name glute medius isometric HEP Resistance level 3 band at thighs (HEP lev 3 green band) Reps/Minutes 60 and 15 X 3without hold foot intrinsics Sitting Exercise Name HEP review: 1. short arch raises, 2. great toe lift AROM , 3. toes 2-5 lifts Side right Reps/Minutes 15 ea ( arch with great toe abd X10 stand and steated Comments improved activation today but still challenging Standing Exercises side steps Standing Exercise Name without mini squat, small steps, avoiding sidebend Side bilateral Resistance level 3 band at thighs HEP green band Reps/Minutes 32feet left and right X 1 Comments post glute med activation mini squat with band Side bilateral Resistance level 3 band at thighs (HEP lev 3 green band) Reps/Minutes X10 Comments Verbal cues to squat to a depth that does not increase pain heel raises Standing Exercise Name on step double LE 4 inch step Side bilateral Resistance AROM Reps/Minutes X10 X 3 Comments monitored for pain Manual Therapy Treatment Soft Tissue Mobilization R ankle/foot Body Location peroneals, tibialis, calf Mobilization Type Rolling,Strumming Intensity/Depth Superficial Body Position supine,prone Joint Mobilizations R ankle/foot Joint Mulligan with movement TC Direction AP Grade III Body Position Standing Reps/Duration X10 X 3 PT-OP-T Assessment and Plan Start: 02/24/24 07:29 Freq: Status: Active Protocol: Document 03/10/24 08:11 AB (Rec: 03/10/24 12:10 AB [id number]) Physical Therapy Assessment Goals Seven Impairment standing Mcc Goal (LTG) Pt will report no limitation in standing time due to R ankle pain in 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 and to begin pt goal of ability to tolerate standing exercise for weight loss or ADLs LTG Duration 12 weeks Six Impairment ankle strength Torch Brazer Goal (LTG) Pt will increase R global ankle strength to at least 4+/ 5 without increase in baseline pain in order to demonstrate improved ankle stability during gait, stance, and ADLs LTG Duration 12 weeks Five Impairment strength: ankle plantarflexion Short Term Goal (STG) Pt will be able to perform at least 2 sets of 10 B heel raises without increase in baseline pain or compensation in order to demonstrate improved plantarflexion strength for gait propulsion and ADLs STG Duration 6 weeks Mcc Goal (LTG) Pt will be able to perform at least 10 single leg heel raises on RLE without increase in baseline pain or compensation in order to demonstrate improved plantarflexion strength for gait propulsion and ADLs LTG Duration 12 weeks Four Impairment strength: hip flex/abd/ext strength 4-/5 MMT Short Term Goal (STG) Pt will improve R hip flex/ext /abd strength to at least 4/5 in order to demonstrate improved proximal stability for stairs, gait, ADLs STG Duration 8 weeks Torch Brazer Goal (LTG) Pt will improve R hip flex/ext /abd strength to at least 4+/5 in order to demonstrate improved proximal stability for stairs, gait, ADLs LTG Duration 12 weeks Three Impairment ROM: B ankle dorsiflexion limited Mcc Goal (LTG) Pt will improve L ankle dorsiflexion AROM to at least 3 deg above neutral in order to demonstrates improved ankle mobility for gait and stairs LTG Duration 12 weeks Two Impairment ROM: R ankle dorsiflexion 2 deg below neutral Short Term Goal (STG) Pt will improve R ankle dorsiflexion AROM to at least neutral in order to demonstrate improved Achilles length and mobility for gait/ stairs STG Duration 8 weeks Torch Brazer Goal (LTG) Pt will improve R ankle dorsiflexion AROM to at least 2 deg above neutral in order to demonstrate improved Achilles length and mobility for gait/stairs LTG Duration 12 weeks One Impairment activity tolerance/QOL: FAAM (ADL), (sport); LEFS Short Term Goal (STG) Pt will increase ADL FAAM score by at least 8 points (1 MCID) in order to demonstrate improved symptom management and activity tolerance for ADLs STG Duration 6 weeks Torch Brazer Goal (LTG) Pt will increase ADL FAAM score by at least 16 points (2 MCID) in order to demonstrate improved symptom management and activity tolerance for ADLs LTG Duration 12 weeks Assessment Summary Assessment Florence reports the knee and ankle feeel much better end of session. Good tolerance to bilateral heel raise on low step. Heel raise on step not yet added to HEP. Physical Therapy Plan Frequency and Duration Frequency of Treatment 1-2x/wk Duration of treatment (weeks) 12 Plan of Care Start Date 02/24/24 Plan of Care End Date 05/22/24 Next Visit Focus/Plan Next Note Type Treatment Note Next Visit Plan check tolerance to side steps, Cont w/ resistance (increase wt) if dayanna, assess dayanna to deficit heel raise on low step if ok with standing heel raise (pain free) progress to 6 inch step. Manual treatment: STM, joint mobilization to increase DF Review HEP If good tolerance, progress to resisted heel raises in sitting, trial eccentric heel raise. Continue with glute med/max strength ( s/l hip abd vs side step, hip ext), start LAQ
--- NOTE | 2024-03-13 12:55 | PT.OTN ---
Current Diagnoses Rheumatoid arthritis, unspecified (03/13/24) Stiffness of right ankle, not elsewhere classified (03/13/24) Contracture of muscle, right lower leg (03/13/24) Plantar fascial fibromatosis (03/13/24) Achilles tendinitis, right leg (03/13/24) Peroneal tendinitis, right leg (03/13/24) Other lack of coordination (03/13/24) Weakness (03/13/24) Physical Therapy Treatment Note PT-OP-A Visit Information Start: 02/24/24 07:29 Freq: Status: Active Protocol: Document 03/13/24 08:10 AB (Rec: 03/13/24 09:48 AB [id number]) Out-Patient Physical Therapy Visit Information Visit Information Visit Type Treatment Note Visit Note allergy to paper tape Access Code: [email or web address] Visit Start Time 09:03 Visit Stop Time 09:47 Visit Number [address] [place] Visits 2 Evaluation Information Evaluation Date 02/24/24 Precautions Precautions Hx of RA (R shoulder), polyarthritis (L knee pain) PT-OP-B Current Condition Start: 02/24/24 07:29 Freq: Status: Active Protocol: Document 02/24/24 07:29 NM (Rec: 02/24/24 08:19 NM [id number]) Current Condition History of Current Condition Onset Date several months ago Current Complaints pain, mobility History of Current Condition Pt presents with chronic R ankle pain, beginning several months ago and saw doctor in Aug/Sep 2023. Pt has hx of B plantar fasciitis, had PT. She also had foot pain along lateral ankle. Currently, pt has R achilles pain, along posterior ankle. She reports improving but still bothersome . Pt reports that her MD was wanting her to be pain free by 02/06 or else he would cast her or consider surgery. She sleeps in a brace that keeps her ankles stuck at 90 degrees. Her shoe-wear also determines pain levels. Pt has PMH of RA and polyarthritis in her L knee. Takes daily tylenol and ibuprofen, which helps her pain levels considerably. 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 Pt reports impairments with stairs, ambulation, sleep, driving. Pt reports edema along her ankle after WB for extended periods. 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 Patient reports ideally she would be in a cast, but patient would not be able to drive so she cannot be in a cast. PT-OP-F Manual Assessment Start: 02/24/24 07:29 Freq: Status: Active Protocol: Document 02/24/24 07:29 NM (Rec: 02/24/24 13:00 NM [id number]) Manual Assessments Soft Tissue Assessment Soft Tissue Mobility Assessment Limitations in B ankle dorsiflexion related to heel cord length. Edema along R ankle, localized swelling at R Achilles insertion and at midsection, thickening. No palpable nodules along R plantar fascia Joint Mobility Assessment Joint Mobility Assessment Limitations in R great toe extension, ray mobility PT-OP-G Mobility & Gait Start: 02/24/24 07:29 Freq: Status: Active Protocol: Document 02/24/24 07:29 NM (Rec: 02/24/24 08:19 NM [id number]) OP Gait Assessment Gait Distance (Feet) 150 Assistive Devices Assistive Device None Gait Deviations General Gait Pattern Antalgic,Decreased Feet Clearance Factors Limiting Gait Function Factors Limiting Gait Function Decreased Activity Tolerance, Decreased Strength,Limited Range of Motion,Pain,Poor Balance Comments Gait Comments Demonstrates limitations in B ankle dorsiflexion, very stiff with limited toe off or propulsion during gait. Feet are very flat, slight pronation with stance, overall very rigid. Demos narrow RENÉ PT-OP-J Posture/Palpation/Skin Start: 02/24/24 07:29 Freq: Status: Active Protocol: Document 02/24/24 07:29 NM (Rec: 02/24/24 15:47 NM [id number]) Posture Evaluation Position Standing Head/C-Spine Posture Forward Head T-Spine Posture Increased Kyphosis L-Spine Posture Increased Lordosis Weight Distribution Weight Shifted Left,Decreased Wt.Bear on (R) Hip Posture (L) Externally Rotated,(R) Externally Rotated Knee Posture (L) Genu Valgus,(R) Genu Valgus Ankle/Foot Posture (L) Plantarflexed,(R) Plantarflexed,(L) Pronated,(R) Pronated Foot Arch (L) Low Arch,(R) Low Arch Toe Posture (L) Flexed Toes,(R) Flexed Toes Palpation Assessment Location R ankle Palpation Findings Edema,Soft Tissue Tightness, Tenderness Palpation Details Global edema in R ankle Increased redness, tenderness and swelling of R ankle along Achilles at insertion and midportion Tenderness along posterior heel and calcaneus Thickened R achilles tendon PT-OP-K Range of Motion Start: 02/24/24 07:29 Freq: Status: Active Protocol: Document 02/24/24 07:29 NM (Rec: 02/24/24 08:19 NM [id number]) Ankle and Foot Goniometric Range of Motion Ankle and Foot Right Inversion 30 Eversion 15 Comments pain with eversion, mild pain with DF. Dorsiflexion: lacking 2 form neutral with knee flexed, lacking 5 deg from neutral with knee extended Left Dorsiflexion with Knee Flexed 0 Plantarflexion 50 Inversion 30 Eversion 20 Comments neutral DF; lacking 5 deg from neutral with leg straight PT-OP-L Special Tests Start: 02/24/24 07:29 Freq: Status: Active Protocol: Document 02/24/24 07:29 NM (Rec: 02/24/24 08:19 NM [id number]) Special Tests Foot/Ankle Special Tests Windlass Test Results - Comments demos small increase in arch height but denies pain Yanes Test Results - Comments tender but observable plantarflexion PT-OP-M Strength Start: 02/24/24 07:29 Freq: Status: Active Protocol: Document 02/24/24 07:29 NM (Rec: 02/24/24 08:19 NM [id number]) Hip Strength Hip Manual Muscle Testing Right Flexion (L2) 4- Good- Extension (S1) 4- Good- Abduction 4- Good- Adduction 4 Good External Rotation 4 Good Internal Rotation 4 Good Left Flexion (L2) 4 Good Extension (S1) 4- Good- Abduction 4- Good- Adduction 4 Good External Rotation 4 Good Internal Rotation 4 Good Comments Compensates with trunk Knee Strength Knee Manual Muscle Testing Right Flexion (S2) 4 Good Extension (L3) 4 Good Left Flexion (S2) 4 Good Extension (L3) 4 Good Ankle/Foot Strength Ankle and Foot Manual Muscle Testing Right Dorsiflexion (L4) 4- Good- Inversion 4- Good- Eversion (S1) 4- Good- Comments Plantarflexion: unable to perform 1 single leg heel raise; can perform 3 bilaterally; 3+/5 when tested in sitting Left Dorsiflexion (L4) 4 Good Inversion 4 Good Eversion (S1) 4 Good Comments Plantarflexion: 9 single leg, challenging and fatiguing; 4/5 when tested in sitting B Heel raises: 3 PT-OP-Q Treatments Start: 02/24/24 07:29 Freq: Status: Active Protocol: Document 03/13/24 08:10 AB (Rec: 03/13/24 09:48 AB [id number]) Therapeutic Exercises Supine Exercises ankle pumps Supine Exercise Name with LE's elevated post manual Reps/Minutes 1 m Sitting Exercises AROM DF Sitting Exercise Name AROM ankle pump Side bilateral Reps/Minutes X15 Comments verbal cues, post manual therapy hip abduction Sitting Exercise Name glute medius isometric HEP Resistance level 3 band at thighs (HEP lev 3 green band) Reps/Minutes 60 and 15 X 3without hold foot intrinsics Sitting Exercise Name HEP review: 1. short arch raises, 2. great toe lift AROM , 3. toes 2-5 lifts Side right Reps/Minutes 15 ea ( arch with great toe abd X10 stand and steated Comments improved activation today but still challenging Standing Exercises side steps Standing Exercise Name in very minimal squat Side bilateral Resistance level 3 band at thighs HEP green band Reps/Minutes 32feet left and right X 1 Comments post glute med activation mini squat with band Side bilateral Resistance level 3 band at thighs 3 lb each UE Reps/Minutes X10 Comments Verbal cues to squat to a depth that does not increase pain heel raises Standing Exercise Name on step double LE 6 & 4 inch step Side bilateral Resistance AROM Reps/Minutes X10 6 inch and 4 inch X 10 Comments limited by calf cramping Manual Therapy Treatment Consent Patient gave verbal consent for manual Yes treatment Soft Tissue Mobilization R ankle/foot Body Location peroneals, tibialis, calf Mobilization Type Rolling,Strumming Intensity/Depth Superficial Body Position Supine Joint Mobilizations R ankle/foot Joint Mulligan with movement TC Direction AP Grade III Body Position Standing Reps/Duration 15x2 PT-OP-T Assessment and Plan Start: 02/24/24 07:29 Freq: Status: Active Protocol: Document 03/13/24 08:10 AB (Rec: 03/13/24 09:48 AB [id number]) Physical Therapy Assessment Goals Seven Impairment standing Shelter Goal (LTG) Pt will report no limitation in standing time due to R ankle pain in 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 and to begin pt goal of ability to tolerate standing exercise for weight loss or ADLs LTG Duration 12 weeks Six Impairment ankle strength Shelter Goal (LTG) Pt will increase R global ankle strength to at least 4+/ 5 without increase in baseline pain in order to demonstrate improved ankle stability during gait, stance, and ADLs LTG Duration 12 weeks Five Impairment strength: ankle plantarflexion Short Term Goal (STG) Pt will be able to perform at least 2 sets of 10 B heel raises without increase in baseline pain or compensation in order to demonstrate improved plantarflexion strength for gait propulsion and ADLs STG Duration 6 weeks Shelter Goal (LTG) Pt will be able to perform at least 10 single leg heel raises on RLE without increase in baseline pain or compensation in order to demonstrate improved plantarflexion strength for gait propulsion and ADLs LTG Duration 12 weeks Four Impairment strength: hip flex/abd/ext strength 4-/5 MMT Short Term Goal (STG) Pt will improve R hip flex/ext /abd strength to at least 4/5 in order to demonstrate improved proximal stability for stairs, gait, ADLs STG Duration 8 weeks Pipe Stripper Goal (LTG) Pt will improve R hip flex/ext /abd strength to at least 4+/5 in order to demonstrate improved proximal stability for stairs, gait, ADLs LTG Duration 12 weeks Three Impairment ROM: B ankle dorsiflexion limited Shelter Goal (LTG) Pt will improve L ankle dorsiflexion AROM to at least 3 deg above neutral in order to demonstrates improved ankle mobility for gait and stairs LTG Duration 12 weeks Two Impairment ROM: R ankle dorsiflexion 2 deg below neutral Short Term Goal (STG) Pt will improve R ankle dorsiflexion AROM to at least neutral in order to demonstrate improved Achilles length and mobility for gait/ stairs STG Duration 8 weeks Shelter Goal (LTG) Pt will improve R ankle dorsiflexion AROM to at least 2 deg above neutral in order to demonstrate improved Achilles length and mobility for gait/stairs LTG Duration 12 weeks One Impairment activity tolerance/QOL: FAAM 32 (ADL), (sport); LEFS Short Term Goal (STG) Pt will increase ADL FAAM score by at least 8 points (1 MCID) in order to demonstrate improved symptom management and activity tolerance for ADLs STG Duration 6 weeks Pipe Stripper Goal (LTG) Pt will increase ADL FAAM score by at least 16 points (2 MCID) in order to demonstrate improved symptom management and activity tolerance for ADLs LTG Duration 12 weeks Assessment Summary Assessment [place] reports a little achilles pain center of achilles, no pain anywhere else end of session. Physical Therapy Plan Frequency and Duration Frequency of Treatment 1-2x/wk Duration of treatment (weeks) 12 Plan of Care Start Date 02/24/24 Plan of Care End Date 05/22/24 Next Visit Focus/Plan Next Note Type Treatment Note Next Visit Plan Cont w/ resistance increase to level 4 band(increase wt) reassess dayanna to standing heel raise to 6 inch step. Manual treatment: STM, joint mobilization to increase DF Review HEP If good tolerance, progress to resisted heel raises in sitting, trial eccentric heel raise. Continue with glute med/max strength ( s/l hip abd vs side step, hip ext), start LAQ
--- NOTE | 2024-03-17 12:40 | PT.OTN ---
Current Diagnoses Rheumatoid arthritis, unspecified (03/17/24) Stiffness of right ankle, not elsewhere classified (03/17/24) Contracture of muscle, right lower leg (03/17/24) Plantar fascial fibromatosis (03/17/24) Achilles tendinitis, right leg (03/17/24) Peroneal tendinitis, right leg (03/17/24) Other lack of coordination (03/17/24) Weakness (03/17/24) Physical Therapy Treatment Note PT-OP-A Visit Information Start: 02/24/24 07:29 Freq: Status: Active Protocol: Document 03/17/24 09:47 NM (Rec: 03/17/24 10:32 NM [id number]) Out-Patient Physical Therapy Visit Information Visit Information Visit Type Treatment Note Visit Note allergy to paper tape Visit Start Time 09:53 Visit Stop Time 10:30 Visit Number 7 Evaluation Information Evaluation Date 02/24/24 Precautions Precautions Hx of RA (R shoulder), polyarthritis (L knee pain) PT-OP-B Current Condition Start: 02/24/24 07:29 Freq: Status: Active Protocol: Document 02/24/24 07:29 NM (Rec: 02/24/24 08:19 NM [id number]) Current Condition History of Current Condition Onset Date several months ago Current Complaints pain, mobility History of Current Condition Pt presents with chronic R ankle pain, beginning several months ago and saw doctor in Aug/Sep 2023. Pt has hx of B plantar fasciitis, had PT. She also had foot pain along lateral ankle. Currently, pt has R achilles pain, along posterior ankle. She reports improving but still bothersome . Pt reports that her MD was wanting her to be pain free by 02/06 or else he would cast her or consider surgery. She sleeps in a brace that keeps her ankles stuck at 90 degrees. Her shoe-wear also determines pain levels. Pt has PMH of RA and polyarthritis in her L knee. Takes daily tylenol and ibuprofen, which helps her pain levels considerably. 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 Pt reports impairments with stairs, ambulation, sleep, driving. Pt reports edema along her ankle after WB for extended periods. 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 Pt currently on steroid still, will finish soon. States that doing well today. Has not done a lot of heel raises. Still very limited with heel raise, states not much better but depends on during day. wanting to cast pt, suggested steroid injection. Next appt in 3 weeks. PT-OP-F Manual Assessment Start: 02/24/24 07:29 Freq: Status: Active Protocol: Document 02/24/24 07:29 NM (Rec: 02/24/24 13:00 NM [id number]) Manual Assessments Soft Tissue Assessment Soft Tissue Mobility Assessment Limitations in B ankle dorsiflexion related to heel cord length. Edema along R ankle, localized swelling at R Achilles insertion and at midsection, thickening. No palpable nodules along R plantar fascia Joint Mobility Assessment Joint Mobility Assessment Limitations in R great toe extension, ray mobility PT-OP-G Mobility & Gait Start: 02/24/24 07:29 Freq: Status: Active Protocol: Document 02/24/24 07:29 NM (Rec: 02/24/24 08:19 NM [id number]) OP Gait Assessment Gait Distance (Feet) 150 Assistive Devices Assistive Device None Gait Deviations General Gait Pattern Antalgic,Decreased Feet Clearance Factors Limiting Gait Function Factors Limiting Gait Function Decreased Activity Tolerance, Decreased Strength,Limited Range of Motion,Pain,Poor Balance Comments Gait Comments Demonstrates limitations in B ankle dorsiflexion, very stiff with limited toe off or propulsion during gait. Feet are very flat, slight pronation with stance, overall very rigid. Demos narrow RENÉ PT-OP-J Posture/Palpation/Skin Start: 02/24/24 07:29 Freq: Status: Active Protocol: Document 02/24/24 07:29 NM (Rec: 02/24/24 15:47 NM [id number]) Posture Evaluation Position Standing Head/C-Spine Posture Forward Head T-Spine Posture Increased Kyphosis L-Spine Posture Increased Lordosis Weight Distribution Weight Shifted Left,Decreased Wt.Bear on (R) Hip Posture (L) Externally Rotated,(R) Externally Rotated Knee Posture (L) Genu Valgus,(R) Genu Valgus Ankle/Foot Posture (L) Plantarflexed,(R) Plantarflexed,(L) Pronated,(R) Pronated Foot Arch (L) Low Arch,(R) Low Arch Toe Posture (L) Flexed Toes,(R) Flexed Toes Palpation Assessment Location R ankle Palpation Findings Edema,Soft Tissue Tightness, Tenderness Palpation Details Global edema in R ankle Increased redness, tenderness and swelling of R ankle along Achilles at insertion and midportion Tenderness along posterior heel and calcaneus Thickened R achilles tendon PT-OP-K Range of Motion Start: 02/24/24 07:29 Freq: Status: Active Protocol: Document 02/24/24 07:29 NM (Rec: 02/24/24 08:19 NM [id number]) Ankle and Foot Goniometric Range of Motion Ankle and Foot Right Inversion 30 Eversion 15 Comments pain with eversion, mild pain with DF. Dorsiflexion: lacking 2 form neutral with knee flexed, lacking 5 deg from neutral with knee extended Left Dorsiflexion with Knee Flexed 0 Plantarflexion 50 Inversion 30 Eversion 20 Comments neutral DF; lacking 5 deg from neutral with leg straight PT-OP-L Special Tests Start: 02/24/24 07:29 Freq: Status: Active Protocol: Document 02/24/24 07:29 NM (Rec: 02/24/24 08:19 NM [id number]) Special Tests Foot/Ankle Special Tests Windlass Test Results - Comments demos small increase in arch height but denies pain Yanes Test Results - Comments tender but observable plantarflexion PT-OP-M Strength Start: 02/24/24 07:29 Freq: Status: Active Protocol: Document 02/24/24 07:29 NM (Rec: 02/24/24 08:19 NM [id number]) Hip Strength Hip Manual Muscle Testing Right Flexion (L2) 4- Good- Extension (S1) 4- Good- Abduction 4- Good- Adduction 4 Good External Rotation 4 Good Internal Rotation 4 Good Left Flexion (L2) 4 Good Extension (S1) 4- Good- Abduction 4- Good- Adduction 4 Good External Rotation 4 Good Internal Rotation 4 Good Comments Compensates with trunk Knee Strength Knee Manual Muscle Testing Right Flexion (S2) 4 Good Extension (L3) 4 Good Left Flexion (S2) 4 Good Extension (L3) 4 Good Ankle/Foot Strength Ankle and Foot Manual Muscle Testing Right Dorsiflexion (L4) 4- Good- Inversion 4- Good- Eversion (S1) 4- Good- Comments Plantarflexion: unable to perform 1 single leg heel raise; can perform 3 bilaterally; 3+/5 when tested in sitting Left Dorsiflexion (L4) 4 Good Inversion 4 Good Eversion (S1) 4 Good Comments Plantarflexion: 9 single leg, challenging and fatiguing; 4/5 when tested in sitting B Heel raises: 3 PT-OP-Q Treatments Start: 02/24/24 07:29 Freq: Status: Active Protocol: Document 03/17/24 09:47 NM (Rec: 03/17/24 10:32 NM [id number]) Therapeutic Exercises Standing Exercises hip 3 way Standing Exercise Name hip flex, abd, ext Side bilateral Resistance level 2 band at thighs Reps/Minutes 5 ea Comments challenging step up Standing Exercise Name 4 > 6 Side bilateral Reps/Minutes 10 Comments no ankle pain; cued level pelvis heel raises Standing Exercise Name double leg heel raise Side bilateral Resistance AROM Equipment Used 4 Reps/Minutes 2x10 Comments no R achilles pain, but reports pulling in achilles Manual Therapy Treatment Consent Patient gave verbal consent for manual Yes treatment Soft Tissue Mobilization R ankle/foot Body Location peroneals, tibialis, calf Mobilization Type Rolling,Strumming Intensity/Depth Superficial Body Position Supine Joint Mobilizations R ankle/foot Joint TCJ, STJ Direction post, medial/lateral Grade III Body Position Supine Reps/Duration 2x30 ea Comments monitored for pain, to increase mobility PT-OP-T Assessment and Plan Start: 02/24/24 07:29 Freq: Status: Active Protocol: Document 03/17/24 09:47 NM (Rec: 03/17/24 10:32 NM [id number]) Physical Therapy Assessment Goals Seven Impairment standing Half-Way Goal (LTG) Pt will report no limitation in standing time due to R ankle pain in 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 and to begin pt goal of ability to tolerate standing exercise for weight loss or ADLs LTG Duration 12 weeks Six Impairment ankle strength Half-Way Goal (LTG) Pt will increase R global ankle strength to at least 4+/ 5 without increase in baseline pain in order to demonstrate improved ankle stability during gait, stance, and ADLs LTG Duration 12 weeks Five Impairment strength: ankle plantarflexion Short Term Goal (STG) Pt will be able to perform at least 2 sets of 10 B heel raises without increase in baseline pain or compensation in order to demonstrate improved plantarflexion strength for gait propulsion and ADLs STG Duration 6 weeks [employer] Goal (LTG) Pt will be able to perform at least 10 single leg heel raises on RLE without increase in baseline pain or compensation in order to demonstrate improved plantarflexion strength for gait propulsion and ADLs LTG Duration 12 weeks Four Impairment strength: hip flex/abd/ext strength 4-/5 MMT Short Term Goal (STG) Pt will improve R hip flex/ext /abd strength to at least 4/5 in order to demonstrate improved proximal stability for stairs, gait, ADLs STG Duration 8 weeks Half-Way Goal (LTG) Pt will improve R hip flex/ext /abd strength to at least 4+/5 in order to demonstrate improved proximal stability for stairs, gait, ADLs LTG Duration 12 weeks Three Impairment ROM: B ankle dorsiflexion limited Half-Way Goal (LTG) Pt will improve L ankle dorsiflexion AROM to at least 3 deg above neutral in order to demonstrates improved ankle mobility for gait and stairs LTG Duration 12 weeks Two Impairment ROM: R ankle dorsiflexion 2 deg below neutral Short Term Goal (STG) Pt will improve R ankle dorsiflexion AROM to at least neutral in order to demonstrate improved Achilles length and mobility for gait/ stairs STG Duration 8 weeks [employer] Goal (LTG) Pt will improve R ankle dorsiflexion AROM to at least 2 deg above neutral in order to demonstrate improved Achilles length and mobility for gait/stairs LTG Duration 12 weeks One Impairment activity tolerance/QOL: FAAM 3284 (ADL), (sport); LEFS Short Term Goal (STG) Pt will increase ADL FAAM score by at least 8 points (1 MCID) in order to demonstrate improved symptom management and activity tolerance for ADLs STG Duration 6 weeks [employer] Goal (LTG) Pt will increase ADL FAAM score by at least 16 points (2 MCID) in order to demonstrate improved symptom management and activity tolerance for ADLs LTG Duration 12 weeks Assessment Summary Assessment Pt tolerated session fair. Trialed 6 in step up to address single leg ankle and quad stability. Pt demos slight trendelenburg which is improved w/ reps. Continued with R achilles loading with bilateral heel raise using deficit. Pt tolerates well without any achilles pain and reports feels better afterward. No change in pain levels at end of session. Remaining session emphasis on strengthening hips; pt challenged by single leg stability on RLE. Good response to manual treatment, continues to have tenderness in R achilles tendon and calf, largely at medial heel. Pt would benefit from skilled PT for progressive R Achilles tendon loading and ankle mobility in order to improve activity tolerance and symptom management. Physical Therapy Plan Frequency and Duration Frequency of Treatment 1-2x/wk Duration of treatment (weeks) 12 Plan of Care Start Date 02/24/24 Plan of Care End Date 05/22/24 Therapeutic Interventions Therapeutic Interventions Balance Training,Gait Training ,Home Exercise Program,Joint Mobilizations,Manual Therapy, Neuromuscular Re-education, Patient/Caregiver Education, Self-Care/Home Management, Sensory Integration,Soft Tissue Mobilization,Taping, Therapeutic Activities, Therapeutic Exercises Modalities Cold Pack/Ice Massage,Electric Stimulation,Hot Packs Next Visit Focus/Plan Next Note Type Treatment Note Next Visit Plan eccentric heel raise vs deficit, seated w/ increased resistance, SLS, banded ankle inv/ev/DF, step up vs glute strengthening Cont w/ resistance increase to level 4 band(increase wt) reassess dayanna to standing heel raise to 6 inch step. Manual treatment: STM, joint mobilization to increase DF Review HEP If good tolerance, progress to resisted heel raises in sitting, trial eccentric heel raise. Continue with glute med/max strength ( s/l hip abd vs side step, hip ext), start LAQ
--- NOTE | 2024-03-18 09:01 | PT-OP ANOTE ---
PT called referring providers office to ask for clinic notes and clarification regarding referral as pt reports only for massage and she is supposed to be staying off of her ankle despite dx of achilles tendinitis. spoke with agent, who passed on message to Dr. Vieira, requesting call back from physician
--- NOTE | 2024-03-19 12:10 | PT.OTN ---
Current Diagnoses Rheumatoid arthritis, unspecified (03/19/24) Stiffness of right ankle, not elsewhere classified (03/19/24) Contracture of muscle, right lower leg (03/19/24) Plantar fascial fibromatosis (03/19/24) Achilles tendinitis, right leg (03/19/24) Peroneal tendinitis, right leg (03/19/24) Other lack of coordination (03/19/24) Weakness (03/19/24) Physical Therapy Treatment Note PT-OP-A Visit Information Start: 02/24/24 07:29 Freq: Status: Active Protocol: Document 03/19/24 11:18 NM (Rec: 03/19/24 12:10 NM [id number]) Out-Patient Physical Therapy Visit Information Visit Information Visit Type Treatment Note Visit Note allergy to paper tape Visit Start Time 11:19 Visit Stop Time 12:02 Visit Number 8 Evaluation Information Evaluation Date 02/24/24 Precautions Precautions Hx of RA (R shoulder), polyarthritis (L knee pain) PT-OP-B Current Condition Start: 02/24/24 07:29 Freq: Status: Active Protocol: Document 02/24/24 07:29 NM (Rec: 02/24/24 08:19 NM [id number]) Current Condition History of Current Condition Onset Date several months ago Current Complaints pain, mobility History of Current Condition Pt presents with chronic R ankle pain, beginning several months ago and saw doctor in Aug/Sep 2023. Pt has hx of B plantar fasciitis, had PT. She also had foot pain along lateral ankle. Currently, pt has R achilles pain, along posterior ankle. She reports improving but still bothersome . Pt reports that her MD was wanting her to be pain free by 02/06 or else he would cast her or consider surgery. She sleeps in a brace that keeps her ankles stuck at 90 degrees. Her shoe-wear also determines pain levels. Pt has PMH of RA and polyarthritis in her L knee. Takes daily tylenol and ibuprofen, which helps her pain levels considerably. 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 Pt reports impairments with stairs, ambulation, sleep, driving. Pt reports edema along her ankle after WB for extended periods. 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 States -10/26, it's talking to met. Finished steroids yesterday. PT-OP-F Manual Assessment Start: 02/24/24 07:29 Freq: Status: Active Protocol: Document 02/24/24 07:29 NM (Rec: 02/24/24 13:00 NM [id number]) Manual Assessments Soft Tissue Assessment Soft Tissue Mobility Assessment Limitations in B ankle dorsiflexion related to heel cord length. Edema along R ankle, localized swelling at R Achilles insertion and at midsection, thickening. No palpable nodules along R plantar fascia Joint Mobility Assessment Joint Mobility Assessment Limitations in R great toe extension, ray mobility PT-OP-G Mobility & Gait Start: 02/24/24 07:29 Freq: Status: Active Protocol: Document 02/24/24 07:29 NM (Rec: 02/24/24 08:19 NM [id number]) OP Gait Assessment Gait Distance (Feet) 150 Assistive Devices Assistive Device None Gait Deviations General Gait Pattern Antalgic,Decreased Feet Clearance Factors Limiting Gait Function Factors Limiting Gait Function Decreased Activity Tolerance, Decreased Strength,Limited Range of Motion,Pain,Poor Balance Comments Gait Comments Demonstrates limitations in B ankle dorsiflexion, very stiff with limited toe off or propulsion during gait. Feet are very flat, slight pronation with stance, overall very rigid. Demos narrow RENÉ PT-OP-J Posture/Palpation/Skin Start: 02/24/24 07:29 Freq: Status: Active Protocol: Document 02/24/24 07:29 NM (Rec: 02/24/24 15:47 NM [id number]) Posture Evaluation Position Standing Head/C-Spine Posture Forward Head T-Spine Posture Increased Kyphosis L-Spine Posture Increased Lordosis Weight Distribution Weight Shifted Left,Decreased Wt.Bear on (R) Hip Posture (L) Externally Rotated,(R) Externally Rotated Knee Posture (L) Genu Valgus,(R) Genu Valgus Ankle/Foot Posture (L) Plantarflexed,(R) Plantarflexed,(L) Pronated,(R) Pronated Foot Arch (L) Low Arch,(R) Low Arch Toe Posture (L) Flexed Toes,(R) Flexed Toes Palpation Assessment Location R ankle Palpation Findings Edema,Soft Tissue Tightness, Tenderness Palpation Details Global edema in R ankle Increased redness, tenderness and swelling of R ankle along Achilles at insertion and midportion Tenderness along posterior heel and calcaneus Thickened R achilles tendon PT-OP-K Range of Motion Start: 02/24/24 07:29 Freq: Status: Active Protocol: Document 02/24/24 07:29 NM (Rec: 02/24/24 08:19 NM [id number]) Ankle and Foot Goniometric Range of Motion Ankle and Foot Right Inversion 30 Eversion 15 Comments pain with eversion, mild pain with DF. Dorsiflexion: lacking 2 form neutral with knee flexed, lacking 5 deg from neutral with knee extended Left Dorsiflexion with Knee Flexed 0 Plantarflexion 50 Inversion 30 Eversion 20 Comments neutral DF; lacking 5 deg from neutral with leg straight PT-OP-L Special Tests Start: 02/24/24 07:29 Freq: Status: Active Protocol: Document 02/24/24 07:29 NM (Rec: 02/24/24 08:19 NM [id number]) Special Tests Foot/Ankle Special Tests Windlass Test Results - Comments demos small increase in arch height but denies pain Yanes Test Results - Comments tender but observable plantarflexion PT-OP-M Strength Start: 02/24/24 07:29 Freq: Status: Active Protocol: Document 02/24/24 07:29 NM (Rec: 02/24/24 08:19 NM [id number]) Hip Strength Hip Manual Muscle Testing Right Flexion (L2) 4- Good- Extension (S1) 4- Good- Abduction 4- Good- Adduction 4 Good External Rotation 4 Good Internal Rotation 4 Good Left Flexion (L2) 4 Good Extension (S1) 4- Good- Abduction 4- Good- Adduction 4 Good External Rotation 4 Good Internal Rotation 4 Good Comments Compensates with trunk Knee Strength Knee Manual Muscle Testing Right Flexion (S2) 4 Good Extension (L3) 4 Good Left Flexion (S2) 4 Good Extension (L3) 4 Good Ankle/Foot Strength Ankle and Foot Manual Muscle Testing Right Dorsiflexion (L4) 4- Good- Inversion 4- Good- Eversion (S1) 4- Good- Comments Plantarflexion: unable to perform 1 single leg heel raise; can perform 3 bilaterally; 3+/5 when tested in sitting Left Dorsiflexion (L4) 4 Good Inversion 4 Good Eversion (S1) 4 Good Comments Plantarflexion: 9 single leg, challenging and fatiguing; 4/5 when tested in sitting B Heel raises: 3 PT-OP-Q Treatments Start: 02/24/24 07:29 Freq: Status: Active Protocol: Document 03/19/24 11:18 NM (Rec: 03/19/24 12:10 NM [id number]) Therapeutic Exercises Sitting Exercises sit to stand Side bilateral Resistance level 2 band at thighs Reps/Minutes 10 ankle inversion/eversion Sitting Exercise Name 1. eversion with slight DF, 2. inversion with slight PF Side right Resistance level 1 band Reps/Minutes 2x10 ea with brief pause Comments pain free AROM DF Side right Resistance level 3 band Reps/Minutes 2x10 Standing Exercises hip [address] way Standing Exercise Name hip flex, abd, ext Side bilateral Resistance level 2 band at thighs Reps/Minutes 10 ea Comments challenging heel raises Standing Exercise Name eccentric heel raise (DL> SL) Side bilateral Reps/Minutes 2x10 Comments cued put weight onto big toe; pain free Manual Therapy Treatment Consent Patient gave verbal consent for manual Yes treatment Soft Tissue Mobilization R ankle/foot Body Location peroneals, tibialis, calf Mobilization Type Rolling,Strumming Intensity/Depth Superficial Body Position Supine Comments Tenderness along peroneals and calf today, less tenderness/ swelling and no palpable bulge along R achilles Joint Mobilizations R ankle/foot Joint TCJ, STJ Direction post, medial/lateral Grade III Body Position Supine Reps/Duration 4x30 ea Comments monitored for pain, to increase mobility PT-OP-T Assessment and Plan Start: 02/24/24 07:29 Freq: Status: Active Protocol: Document 03/19/24 11:18 NM (Rec: 03/19/24 12:10 NM [id number]) Physical Therapy Assessment Goals Seven Impairment standing Residential Goal (LTG) Pt will report no limitation in standing time due to R ankle pain in 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 and to begin pt goal of ability to tolerate standing exercise for weight loss or ADLs LTG Duration 12 weeks Six Impairment ankle strength Hot [employer] Tinning Supervisor Goal (LTG) Pt will increase R global ankle strength to at least 4+/ 5 without increase in baseline pain in order to demonstrate improved ankle stability during gait, stance, and ADLs LTG Duration 12 weeks Five Impairment strength: ankle plantarflexion Short Term Goal (STG) Pt will be able to perform at least 2 sets of 10 B heel raises without increase in baseline pain or compensation in order to demonstrate improved plantarflexion strength for gait propulsion and ADLs STG Duration 6 weeks Residential Goal (LTG) Pt will be able to perform at least 10 single leg heel raises on RLE without increase in baseline pain or compensation in order to demonstrate improved plantarflexion strength for gait propulsion and ADLs LTG Duration 12 weeks Four Impairment strength: hip flex/abd/ext strength 4-/5 MMT Short Term Goal (STG) Pt will improve R hip flex/ext /abd strength to at least 4/5 in order to demonstrate improved proximal stability for stairs, gait, ADLs STG Duration 8 weeks [employer] Tinning Supervisor Goal (LTG) Pt will improve R hip flex/ext /abd strength to at least 4+/5 in order to demonstrate improved proximal stability for stairs, gait, ADLs LTG Duration 12 weeks Three Impairment ROM: B ankle dorsiflexion limited Residential Goal (LTG) Pt will improve L ankle dorsiflexion AROM to at least 3 deg above neutral in order to demonstrates improved ankle mobility for gait and stairs LTG Duration 12 weeks Two Impairment ROM: R ankle dorsiflexion 2 deg below neutral Short Term Goal (STG) Pt will improve R ankle dorsiflexion AROM to at least neutral in order to demonstrate improved Achilles length and mobility for gait/ stairs STG Duration 8 weeks Residential Goal (LTG) Pt will improve R ankle dorsiflexion AROM to at least 2 deg above neutral in order to demonstrate improved Achilles length and mobility for gait/stairs LTG Duration 12 weeks One Impairment activity tolerance/QOL: FAAM 32/ (ADL), 2/32 (sport); LEFS 26/80 Short Term Goal (STG) Pt will increase ADL FAAM score by at least 8 points (1 MCID) in order to demonstrate improved symptom management and activity tolerance for ADLs STG Duration 6 weeks Residential Goal (LTG) Pt will increase ADL FAAM score by at least 16 points (2 MCID) in order to demonstrate improved symptom management and activity tolerance for ADLs LTG Duration 12 weeks Assessment Summary Assessment Pt tolerated session well. R ankle dorsiflexion 5 deg above neutral following completion of steroids yesterday. Demos good effort and tolerance for eccentric heel raise today. Cued to maintain weight toward her big toe to promote more posterior tibialis activation and decrease compensations at heel. Stays within acceptable pain range (<5/10) with heel raises for tendon loading scale. Pt with better form and ability to stabilize during hip 3 way and sit to stand. Added global ankle strengthening with band to improve overall stability during stance. Continues to have good response to manual therapy; however, demos more tenderness along R peroneals than in previous sesssions. No palpable bump at achilles today. Pt would benefit from skilled PT for R achilles progressive loading and global BLE strengthening in order to improve activity tolerance and return to work. Physical Therapy Plan Frequency and Duration Frequency of Treatment 1-2x/wk Duration of treatment (weeks) 12 Plan of Care Start Date 02/24/24 Plan of Care End Date 05/22/24 Therapeutic Interventions Therapeutic Interventions Balance Training,Gait Training ,Home Exercise Program,Joint Mobilizations,Manual Therapy, Neuromuscular Re-education, Patient/Caregiver Education, Self-Care/Home Management, Sensory Integration,Soft Tissue Mobilization,Taping, Therapeutic Activities, Therapeutic Exercises Modalities Cold Pack/Ice Massage,Electric Stimulation,Hot Packs Next Visit Focus/Plan Next Note Type Treatment Note Next Visit Plan review eccentric heel raise vs deficit, seated w/ increased resistance, SLS, LAQ Manual treatment: STM, joint mobilization to increase DF
--- NOTE | 2024-03-24 13:27 | PT.OTN ---
Current Diagnoses Rheumatoid arthritis, unspecified (03/24/24) Stiffness of right ankle, not elsewhere classified (03/24/24) Contracture of muscle, right lower leg (03/24/24) Plantar fascial fibromatosis (03/24/24) Achilles tendinitis, right leg (03/24/24) Peroneal tendinitis, right leg (03/24/24) Other lack of coordination (03/24/24) Weakness (03/24/24) Physical Therapy Treatment Note PT-OP-A Visit Information Start: 02/24/24 07:29 Freq: Status: Active Protocol: Document 03/24/24 09:49 NM (Rec: 03/24/24 10:33 NM [id number]) Out-Patient Physical Therapy Visit Information Visit Information Visit Type Treatment Note Visit Note allergy to paper tape Visit Start Time 09:50 Visit Stop Time 10:30 Visit Number 9 Evaluation Information Evaluation Date 02/24/24 Precautions Precautions Hx of RA (R shoulder), polyarthritis (L knee pain) PT-OP-B Current Condition Start: 02/24/24 07:29 Freq: Status: Active Protocol: Document 02/24/24 07:29 NM (Rec: 02/24/24 08:19 NM [id number]) Current Condition History of Current Condition Onset Date several months ago Current Complaints pain, mobility History of Current Condition Pt presents with chronic R ankle pain, beginning several months ago and saw doctor in Aug/Sep 2023. Pt has hx of B plantar fasciitis, had PT. She also had foot pain along lateral ankle. Currently, pt has R achilles pain, along posterior ankle. She reports improving but still bothersome . Pt reports that her MD was wanting her to be pain free by 02/06 or else he would cast her or consider surgery. She sleeps in a brace that keeps her ankles stuck at 90 degrees. Her shoe-wear also determines pain levels. Pt has PMH of RA and polyarthritis in her L knee. Takes daily tylenol and ibuprofen, which helps her pain levels considerably. 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 Pt reports impairments with stairs, ambulation, sleep, driving. Pt reports edema along her ankle after WB for extended periods. 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 She also went to [employer] festival, walking a lot. She also tried eccentric heel raises but states too uncomfortable to stopped after 3. State that doing everything hurts. She feels like her pain scale is 1 -4 (sitting, 2- can do stuff, 3- sucks but can keep walking cuase needs to get stuff done, 4- I dont go there). If sits for 5-10 min, can get up and move again for a little longer . Her foot starts to hurt after driving half way to [facility]. States that she walks on the outside of her foot. Reports was able to do stairs with less discomfort over the weekend. PT-OP-F Manual Assessment Start: 02/24/24 07:29 Freq: Status: Active Protocol: Document 02/24/24 07:29 NM (Rec: 02/24/24 13:00 NM [id number]) Manual Assessments Soft Tissue Assessment Soft Tissue Mobility Assessment Limitations in B ankle dorsiflexion related to heel cord length. Edema along R ankle, localized swelling at R Achilles insertion and at midsection, thickening. No palpable nodules along R plantar fascia Joint Mobility Assessment Joint Mobility Assessment Limitations in R great toe extension, ray mobility PT-OP-G Mobility & Gait Start: 02/24/24 07:29 Freq: Status: Active Protocol: Document 02/24/24 07:29 NM (Rec: 02/24/24 08:19 NM [id number]) OP Gait Assessment Gait Distance (Feet) 150 Assistive Devices Assistive Device None Gait Deviations General Gait Pattern Antalgic,Decreased Feet Clearance Factors Limiting Gait Function Factors Limiting Gait Function Decreased Activity Tolerance, Decreased Strength,Limited Range of Motion,Pain,Poor Balance Comments Gait Comments Demonstrates limitations in B ankle dorsiflexion, very stiff with limited toe off or propulsion during gait. Feet are very flat, slight pronation with stance, overall very rigid. Olvin mclaughlin RENÉ PT-OP-J Posture/Palpation/Skin Start: 02/24/24 07:29 Freq: Status: Active Protocol: Document 02/24/24 07:29 NM (Rec: 02/24/24 15:47 NM [id number]) Posture Evaluation Position Standing Head/C-Spine Posture Forward Head T-Spine Posture Increased Kyphosis L-Spine Posture Increased Lordosis Weight Distribution Weight Shifted Left,Decreased Wt.Bear on (R) Hip Posture (L) Externally Rotated,(R) Externally Rotated Knee Posture (L) Genu Valgus,(R) Genu Valgus Ankle/Foot Posture (L) Plantarflexed,(R) Plantarflexed,(L) Pronated,(R) Pronated Foot Arch (L) Low Arch,(R) Low Arch Toe Posture (L) Flexed Toes,(R) Flexed Toes Palpation Assessment Location R ankle Palpation Findings Edema,Soft Tissue Tightness, Tenderness Palpation Details Global edema in R ankle Increased redness, tenderness and swelling of R ankle along Achilles at insertion and midportion Tenderness along posterior heel and calcaneus Thickened R achilles tendon PT-OP-K Range of Motion Start: 02/24/24 07:29 Freq: Status: Active Protocol: Document 02/24/24 07:29 NM (Rec: 02/24/24 08:19 NM [id number]) Ankle and Foot Goniometric Range of Motion Ankle and Foot Right Inversion 30 Eversion 15 Comments pain with eversion, mild pain with DF. Dorsiflexion: lacking 2 form neutral with knee flexed, lacking 5 deg from neutral with knee extended Left Dorsiflexion with Knee Flexed 0 Plantarflexion 50 Inversion 30 Eversion 20 Comments neutral DF; lacking 5 deg from neutral with leg straight PT-OP-L Special Tests Start: 02/24/24 07:29 Freq: Status: Active Protocol: Document 02/24/24 07:29 NM (Rec: 02/24/24 08:19 NM [id number]) Special Tests Foot/Ankle Special Tests Windlass Test Results - Comments demos small increase in arch height but denies pain Yanes Test Results - Comments tender but observable plantarflexion PT-OP-M Strength Start: 02/24/24 07:29 Freq: Status: Active Protocol: Document 02/24/24 07:29 NM (Rec: 02/24/24 08:19 NM [id number]) Hip Strength Hip Manual Muscle Testing Right Flexion (L2) 4- Good- Extension (S1) 4- Good- Abduction 4- Good- Adduction 4 Good External Rotation 4 Good Internal Rotation 4 Good Left Flexion (L2) 4 Good Extension (S1) 4- Good- Abduction 4- Good- Adduction 4 Good External Rotation 4 Good Internal Rotation 4 Good Comments Compensates with trunk Knee Strength Knee Manual Muscle Testing Right Flexion (S2) 4 Good Extension (L3) 4 Good Left Flexion (S2) 4 Good Extension (L3) 4 Good Ankle/Foot Strength Ankle and Foot Manual Muscle Testing Right Dorsiflexion (L4) 4- Good- Inversion 4- Good- Eversion (S1) 4- Good- Comments Plantarflexion: unable to perform 1 single leg heel raise; can perform 3 bilaterally; 3+/5 when tested in sitting Left Dorsiflexion (L4) 4 Good Inversion 4 Good Eversion (S1) 4 Good Comments Plantarflexion: 9 single leg, challenging and fatiguing; 4/5 when tested in sitting B Heel raises: 3 PT-OP-Q Treatments Start: 02/24/24 07:29 Freq: Status: Active Protocol: Document 03/24/24 09:49 NM (Rec: 03/24/24 10:33 NM [id number]) Therapeutic Exercises Sitting Exercises ankle inversion/eversion Sitting Exercise Name 1. eversion with slight DF, 2. inversion with slight PF Side right Resistance level 3 band Reps/Minutes 15 ea with brief pause Comments pain free with increased band level heel raises Sitting Exercise Name 1. w/ great toe abd, 2. with eversion bias, 3. with inversion bias Side bilateral Resistance 1. level 1 band Reps/Minutes 1. 2x10, 2. 15, 3. 15 Comments cued weight on big toe for more post tib foot intrinsics Sitting Exercise Name toe flex Side right Reps/Minutes 2x10 Manual Therapy Treatment Consent Patient gave verbal consent for manual Yes treatment Soft Tissue Mobilization R ankle/foot Body Location peroneals, tibialis, calf Mobilization Type Rolling,Strumming Intensity/Depth Superficial Body Position Supine Comments Tenderness along peroneals and calf today, less tenderness/ swelling and no palpable bulge along R achilles Joint Mobilizations R ankle/foot Joint TCJ, STJ, metatarsals 1 Direction post ant, medial/lateral, dorsal/volar and medial/ lateral Grade III Body Position Supine Reps/Duration 6x30 ea Comments monitored for pain, to increase mobility into DF and with 1st ray. 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 and to begin pt goal of ability to tolerate standing exercise for weight loss or ADLs LTG Duration 12 weeks Six Impairment ankle strength Director Payer Goal (LTG) Pt will increase R global ankle strength to at least 4+/ 5 without increase in baseline pain in order to demonstrate improved ankle stability during gait, stance, and ADLs LTG Duration 12 weeks Five Impairment strength: ankle plantarflexion Short Term Goal (STG) Pt will be able to perform at least 2 sets of 10 B heel raises without increase in baseline pain or compensation in order to demonstrate improved plantarflexion strength for gait propulsion and ADLs STG Duration 6 weeks Director Payer Goal (LTG) Pt will be able to perform at least 10 single leg heel raises on RLE without increase in baseline pain or compensation in order to demonstrate improved plantarflexion strength for gait propulsion and ADLs LTG Duration 12 weeks Four Impairment strength: hip flex/abd/ext strength 4-/5 MMT Short Term Goal (STG) Pt will improve R hip flex/ext /abd strength to at least 4/5 in order to demonstrate improved proximal stability for stairs, gait, ADLs STG Duration 8 weeks Director Payer Goal (LTG) Pt will improve R hip flex/ext /abd strength to at least 4+/5 in order to demonstrate improved proximal stability for stairs, gait, ADLs LTG Duration 12 weeks Three Impairment ROM: B ankle dorsiflexion limited Fdc Goal (LTG) Pt will improve L ankle dorsiflexion AROM to at least 3 deg above neutral in order to demonstrates improved ankle mobility for gait and stairs LTG Duration 12 weeks Two Impairment ROM: R ankle dorsiflexion 2 deg below neutral Short Term Goal (STG) Pt will improve R ankle dorsiflexion AROM to at least neutral in order to demonstrate improved Achilles length and mobility for gait/ stairs STG Duration 8 weeks Fdc Goal (LTG) Pt will improve R ankle dorsiflexion AROM to at least 2 deg above neutral in order to demonstrate improved Achilles length and mobility for gait/stairs LTG Duration 12 weeks One Impairment activity tolerance/QOL: FAAM 32/84 (ADL), (sport); LEFS Short Term Goal (STG) Pt will increase ADL FAAM score by at least 8 points (1 MCID) in order to demonstrate improved symptom management and activity tolerance for ADLs STG Duration 6 weeks Director Payer Goal (LTG) Pt will increase ADL FAAM score by at least 16 points (2 MCID) in order to demonstrate improved symptom management and activity tolerance for ADLs LTG Duration 12 weeks Assessment Summary Assessment Pt tolerated session well. 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 Continued with foot intrinsic and ankle extrinsic strengthening. Pt has significant difference between RLE and LLE when performing heel raises, but denies any pain while in sitting since NWB. Able to progress to level 3 band for ankle inversion and eversion. Rest of session spent on manual treatment for pain reduction and to improve ankle dorsiflexion and 1st ray mobility. Pt tolerated manual treatment well. She has 10 deg of ankle dorsiflexion at end of session. Pt would benefit from skilled PT for R ankle mobility and strength in order to improve symptom management. Physical Therapy Plan Frequency and Duration Frequency of Treatment 1-2x/wk Duration of treatment (weeks) 12 Plan of Care Start Date 02/24/24 Plan of Care End Date 05/22/24 Therapeutic Interventions Therapeutic Interventions Balance Training,Gait Training ,Home Exercise Program,Joint Mobilizations,Manual Therapy, Neuromuscular Re-education, Patient/Caregiver Education, Self-Care/Home Management, Sensory Integration,Soft Tissue Mobilization,Taping, Therapeutic Activities, Therapeutic Exercises Modalities Cold Pack/Ice Massage,Electric Stimulation,Hot Packs Next Visit Focus/Plan Next Note Type Progress Note Next Visit Plan review double leg with resistance on leg press vs eccentric heel raise vs deficit, seated w/ increased resistance, SLS, LAQ Manual treatment: STM, joint mobilization to increase DF
--- NOTE | 2024-03-27 12:44 | PT.OTN ---
Current Diagnoses Rheumatoid arthritis, unspecified (03/27/24) Stiffness of right ankle, not elsewhere classified (03/27/24) Contracture of muscle, right lower leg (03/27/24) Plantar fascial fibromatosis (03/27/24) Achilles tendinitis, right leg (03/27/24) Peroneal tendinitis, right leg (03/27/24) Other lack of coordination (03/27/24) Weakness (03/27/24) Physical Therapy Treatment Note PT-OP-A Visit Information Start: 02/24/24 07:29 Freq: Status: Active Protocol: Document 03/27/24 09:49 NM (Rec: 03/27/24 10:32 NM [id number]) Out-Patient Physical Therapy Visit Information Visit Information Visit Type Progress Note Visit Note allergy to paper tape Visit Start Time 09:56 Visit Stop Time 10:30 Visit Number 10 Evaluation Information Evaluation Date 02/24/24 Precautions Precautions Hx of RA (R shoulder), polyarthritis (L knee pain) PT-OP-B Current Condition Start: 02/24/24 07:29 Freq: Status: Active Protocol: Document 02/24/24 07:29 NM (Rec: 02/24/24 08:19 NM [id number]) Current Condition History of Current Condition Onset Date several months ago Current Complaints pain, mobility History of Current Condition Pt presents with chronic R ankle pain, beginning several months ago and saw doctor in Aug/Sep 2023. Pt has hx of B plantar fasciitis, had PT. She also had foot pain along lateral ankle. Currently, pt has R achilles pain, along posterior ankle. She reports improving but still bothersome . Pt reports that her MD was wanting her to be pain free by 02/06 or else he would cast her or consider surgery. She sleeps in a brace that keeps her ankles stuck at 90 degrees. Her shoe-wear also determines pain levels. Pt has PMH of RA and polyarthritis in her L knee. Takes daily tylenol and ibuprofen, which helps her pain levels considerably. 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 Pt reports impairments with stairs, ambulation, sleep, driving. Pt reports edema along her ankle after WB for extended periods. 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 Vieira on Thrus04/02. Yesterday, pt reports very miserable for R ankle, states that when she was moving boxes and ambulating on unstable ground. She reports that the pain levels today at 3-4/10, but yesterday was 6-8/ 10. She reports at the top of her heel. She reports that she had no pain this am when she woke up, wore her brace, took her meds. Pt late to session PT-OP-F Manual Assessment Start: 02/24/24 07:29 Freq: Status: Active Protocol: Document 02/24/24 07:29 NM (Rec: 02/24/24 13:00 NM [id number]) Manual Assessments Soft Tissue Assessment Soft Tissue Mobility Assessment Limitations in B ankle dorsiflexion related to heel cord length. Edema along R ankle, localized swelling at R Achilles insertion and at midsection, thickening. No palpable nodules along R plantar fascia Joint Mobility Assessment Joint Mobility Assessment Limitations in R great toe extension, ray mobility PT-OP-G Mobility & Gait Start: 02/24/24 07:29 Freq: Status: Active Protocol: Document 02/24/24 07:29 NM (Rec: 02/24/24 08:19 NM [id number]) OP Gait Assessment Gait Distance (Feet) 150 Assistive Devices Assistive Device None Gait Deviations General Gait Pattern Antalgic,Decreased Feet Clearance Factors Limiting Gait Function Factors Limiting Gait Function Decreased Activity Tolerance, Decreased Strength,Limited Range of Motion,Pain,Poor Balance Comments Gait Comments Demonstrates limitations in B ankle dorsiflexion, very stiff with limited toe off or propulsion during gait. Feet are very flat, slight pronation with stance, overall very rigid. Olvin narrow RENÉ PT-OP-J Posture/Palpation/Skin Start: 02/24/24 07:29 Freq: Status: Active Protocol: Document 02/24/24 07:29 NM (Rec: 02/24/24 15:47 NM [id number]) Posture Evaluation Position Standing Head/C-Spine Posture Forward Head T-Spine Posture Increased Kyphosis L-Spine Posture Increased Lordosis Weight Distribution Weight Shifted Left,Decreased Wt.Bear on (R) Hip Posture (L) Externally Rotated,(R) Externally Rotated Knee Posture (L) Genu Valgus,(R) Genu Valgus Ankle/Foot Posture (L) Plantarflexed,(R) Plantarflexed,(L) Pronated,(R) Pronated Foot Arch (L) Low Arch,(R) Low Arch Toe Posture (L) Flexed Toes,(R) Flexed Toes Palpation Assessment Location R ankle Palpation Findings Edema,Soft Tissue Tightness, Tenderness Palpation Details Global edema in R ankle Increased redness, tenderness and swelling of R ankle along Achilles at insertion and midportion Tenderness along posterior heel and calcaneus Thickened R achilles tendon PT-OP-K Range of Motion Start: 02/24/24 07:29 Freq: Status: Active Protocol: Document 03/27/24 09:49 NM (Rec: 03/27/24 10:32 NM [id number]) Ankle and Foot Goniometric Range of Motion Ankle and Foot Right Inversion 30 Eversion 15 Comments pain with eversion, mild pain with DF. Dorsiflexion: lacking 2 form neutral with knee flexed, lacking 5 deg from neutral with knee extended 03/27/24: 5 deg DF, 50 deg PF Left Dorsiflexion with Knee Flexed 0 Plantarflexion 50 Inversion 30 Eversion 20 Comments neutral DF; lacking 5 deg from neutral with leg straight 03/27/24: 6 deg past neutral, 50 deg PF PT-OP-L Special Tests Start: 02/24/24 07:29 Freq: Status: Active Protocol: Document 02/24/24 07:29 NM (Rec: 02/24/24 08:19 NM [id number]) Special Tests Foot/Ankle Special Tests Windlass Test Results - Comments demos small increase in arch height but denies pain Yanes Test Results - Comments tender but observable plantarflexion PT-OP-M Strength Start: 02/24/24 07:29 Freq: Status: Active Protocol: Document 03/27/24 09:49 NM (Rec: 03/27/24 10:32 NM [id number]) Hip Strength Hip Manual Muscle Testing Right Flexion (L2) 4- Good- Extension (S1) 4- Good- Abduction 4- Good- Adduction 4 Good External Rotation 4 Good Internal Rotation 4 Good Comments 03/27/24: 4/5 for all Left Flexion (L2) 4 Good Extension (S1) 4- Good- Abduction 4- Good- Adduction 4 Good External Rotation 4 Good Internal Rotation 4 Good Comments Compensates with trunk 03/27/24: 4/5 Ankle/Foot Strength Ankle and Foot Manual Muscle Testing Right Dorsiflexion (L4) 4- Good- Inversion 4- Good- Eversion (S1) 4- Good- Comments Plantarflexion: unable to perform 1 single leg heel raise; can perform 3 bilaterally; 3+/5 when tested in sitting 03/27/24: 4/5 for all; PF in sitting 4/5; able to do Left Dorsiflexion (L4) 4 Good Inversion 4 Good Eversion (S1) 4 Good Comments Plantarflexion: 9 single leg, challenging and fatiguing; 4/5 when tested in sitting B Heel raises: 3 03/27/24: 4/5 PT-OP-Q Treatments Start: 02/24/24 07:29 Freq: Status: Active Protocol: Document 03/27/24 09:49 NM (Rec: 03/27/24 10:32 NM [id number]) Therapeutic Exercises Sitting Exercises sit to stand Side bilateral Resistance level 3 band at thighs Equipment Used standard chair Reps/Minutes 10 Comments btwn sets of heel raise romana. Standing Exercises monster walk Standing Exercise Name 1. fwd, 2. retro Side bilateral Resistance level 3 band at ankles Reps/Minutes 2x15 ft Comments pain free side steps Standing Exercise Name in very minimal squat Side bilateral Resistance level 3 band at mid calf Reps/Minutes 2x10 ft Comments with slight squat heel raises Standing Exercise Name 1. isometric hold, 2. single leg tested for goals Side bilateral Reps/Minutes 1. 30 x5 with 2' break btwn sets, 70% effort, 2. Comments 1. 1-2/10 pain (acceptable tendon range), 3 ht Neuro Re-Education Treatment Balance Activities SLS Details BLE Comments 1. stable surface, 2x30 ea 2. 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 and to begin pt goal of ability to tolerate standing exercise for weight loss or ADLs 03/27/24: needs to be able to stand 85 min; states that she has stood/ambulate for 2-3 hrs at time LTG Duration 12 weeks PROGRESSING Six Impairment ankle strength Half-Way Goal (LTG) Pt will increase R global ankle strength to at least 4+/ 5 without increase in baseline pain in order to demonstrate improved ankle stability during gait, stance, and ADLs 03/27/24: 4/5 for DF/eversion/ inversion, single leg heel raise 6 LTG Duration 12 weeks Five Impairment strength: ankle plantarflexion Short Term Goal (STG) Pt will be able to perform at least 2 sets of 10 B heel raises without increase in baseline pain or compensation in order to demonstrate improved plantarflexion strength for gait propulsion and ADLs 03/27/24: pt has completed 2x10 STG Duration 6 weeks Tube Bending Machine Operator Goal (LTG) Pt will be able to perform at least 10 single leg heel raises on RLE without increase in baseline pain or compensation in order to demonstrate improved plantarflexion strength for gait propulsion and ADLs 03/27/24: 6 single leg heel raises on RLE LTG Duration 12 weeks Four Impairment strength: hip flex/abd/ext strength 4-/5 MMT Short Term Goal (STG) Pt will improve R hip flex/ext /abd strength to at least 4/5 in order to demonstrate improved proximal stability for stairs, gait, ADLs 03/27/24: 4/5 for all STG Duration 8 weeks Half-Way Goal (LTG) Pt will improve R hip flex/ext /abd strength to at least 4+/5 in order to demonstrate improved proximal stability for stairs, gait, ADLs LTG Duration 12 weeks Three Impairment ROM: B ankle dorsiflexion limited Tube Bending Machine Operator Goal (LTG) Pt will improve L ankle dorsiflexion AROM to at least 3 deg above neutral in order to demonstrates improved ankle mobility for gait and stairs 03/27/24: 6 deg above neutral LTG Duration 12 weeks Two Impairment ROM: R ankle dorsiflexion 2 deg below neutral Short Term Goal (STG) Pt will improve R ankle dorsiflexion AROM to at least neutral in order to demonstrate improved Achilles length and mobility for gait/ stairs 03/27/24: 5 deg DF above neutral STG Duration 8 weeks Half-Way Goal (LTG) Pt will improve R ankle dorsiflexion AROM to at least 2 deg above neutral in order to demonstrate improved Achilles length and mobility for gait/stairs 03/27/24: 5 deg DF above neutral LTG Duration 12 weeks MET One Impairment activity tolerance/QOL: FAAM 32/84 (ADL), 2/ (sport); LEFS 26/80 Short Term Goal (STG) Pt will increase ADL FAAM score by at least 8 points (1 MCID) in order to demonstrate improved symptom management and activity tolerance for ADLs 03/27/24: ADL FAAM 52/84 STG Duration 6 weeks MET Half-Way Goal (LTG) Pt will increase ADL FAAM score by at least 16 points (2 MCID) in order to demonstrate improved symptom management and activity tolerance for ADLs 03/27/24: ADL FAAM 52/84 LTG Duration 12 weeks MET Assessment Summary Assessment Pt tolerated session well. Reports 1-2/10 R ankle pain at end of session, states that does not hurt to walk out. Pt responds very well to isometric holds for heel raise . Able to do 11 single leg heel raises on LLE, 6 on RLE. Pt unable to perform on RLE at evaluation. She is progressing well toward goals. Continued with global hip strengthening to improve stability during gait and stance. Pt able to progress to band below thighs for activities including retro and forward stepping. Trialed single leg stance to improve ankle proprioception; able to perform 30 on stable surface, then progress to foam pad with minimal hand support for balance. Physical Therapy Plan Frequency and Duration Frequency of Treatment 1-2x/wk Duration of treatment (weeks) 12 Plan of Care Start Date 02/24/24 Plan of Care End Date 05/22/24 Therapeutic Interventions Therapeutic Interventions Balance Training,Gait Training ,Home Exercise Program,Joint Mobilizations,Manual Therapy, Neuromuscular Re-education, Patient/Caregiver Education, Self-Care/Home Management, Sensory Integration,Soft Tissue Mobilization,Taping, Therapeutic Activities, Therapeutic Exercises Modalities Cold Pack/Ice Massage,Electric Stimulation,Hot Packs Next Visit Focus/Plan Next Note Type Treatment Note Next Visit Plan romana then trial SL heel raise, or leg press vs eccentric heel raise, SLS, LAQ begin proprioceptive work for balance on even/uneven surface and cont with glute strength Manual treatment: STM, joint mobilization to increase DF
--- NOTE | 2024-03-31 13:00 | PT.OTN ---
Current Diagnoses Rheumatoid arthritis, unspecified (03/31/24) Stiffness of right ankle, not elsewhere classified (03/31/24) Contracture of muscle, right lower leg (03/31/24) Plantar fascial fibromatosis (03/31/24) Achilles tendinitis, right leg (03/31/24) Peroneal tendinitis, right leg (03/31/24) Other lack of coordination (03/31/24) Weakness (03/31/24) Physical Therapy Treatment Note PT-OP-A Visit Information Start: 02/24/24 07:29 Freq: Status: Active Protocol: Document 03/31/24 08:05 AB (Rec: 03/31/24 13:00 AB [id number]) Out-Patient Physical Therapy Visit Information Visit Information Visit Type Treatment Note Visit Note allergy to paper tape Visit Start Time 09:48 Visit Stop Time 10:32 Visit Number 11 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 Pt has hx of B plantar fasciitis, had PT. She also had foot pain along lateral ankle. Currently, pt has R achilles pain, along posterior ankle. She reports improving but still bothersome . Pt reports that her MD was wanting her to be pain free by 02/06 or else he would cast her or consider surgery. She sleeps in a brace that keeps her ankles stuck at 90 degrees. Her shoe-wear also determines pain levels. Pt has PMH of RA and polyarthritis in her L knee. Takes daily tylenol and ibuprofen, which helps her pain levels considerably. 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 Pt reports impairments with stairs, ambulation, sleep, driving. Pt reports edema along her ankle after WB for extended periods. 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 Patient reports it is over all less, and less with use. Now a 6-02/25 with walking previously 03/28. PT-OP-F Manual Assessment Start: 02/24/24 07:29 Freq: Status: Active Protocol: Document 02/24/24 07:29 NM (Rec: 02/24/24 13:00 NM [id number]) Manual Assessments Soft Tissue Assessment Soft Tissue Mobility Assessment Limitations in B ankle dorsiflexion related to heel cord length. Edema along R ankle, localized swelling at R Achilles insertion and at midsection, thickening. No palpable nodules along R plantar fascia Joint Mobility Assessment Joint Mobility Assessment Limitations in R great toe extension, ray mobility PT-OP-G Mobility & Gait Start: 02/24/24 07:29 Freq: Status: Active Protocol: Document 02/24/24 07:29 NM (Rec: 02/24/24 08:19 NM [id number]) OP Gait Assessment Gait Distance (Feet) 150 Assistive Devices Assistive Device None Gait Deviations General Gait Pattern Antalgic,Decreased Feet Clearance Factors Limiting Gait Function Factors Limiting Gait Function Decreased Activity Tolerance, Decreased Strength,Limited Range of Motion,Pain,Poor Balance Comments Gait Comments Demonstrates limitations in B ankle dorsiflexion, very stiff with limited toe off or propulsion during gait. Feet are very flat, slight pronation with stance, overall very rigid. Demos narrow RENÉ PT-OP-J Posture/Palpation/Skin Start: 02/24/24 07:29 Freq: Status: Active Protocol: Document 02/24/24 07:29 NM (Rec: 02/24/24 15:47 NM [id number]) Posture Evaluation Position Standing Head/C-Spine Posture Forward Head T-Spine Posture Increased Kyphosis L-Spine Posture Increased Lordosis Weight Distribution Weight Shifted Left,Decreased Wt.Bear on (R) Hip Posture (L) Externally Rotated,(R) Externally Rotated Knee Posture (L) Genu Valgus,(R) Genu Valgus Ankle/Foot Posture (L) Plantarflexed,(R) Plantarflexed,(L) Pronated,(R) Pronated Foot Arch (L) Low Arch,(R) Low Arch Toe Posture (L) Flexed Toes,(R) Flexed Toes Palpation Assessment Location R ankle Palpation Findings Edema,Soft Tissue Tightness, Tenderness Palpation Details Global edema in R ankle Increased redness, tenderness and swelling of R ankle along Achilles at insertion and midportion Tenderness along posterior heel and calcaneus Thickened R achilles tendon PT-OP-K Range of Motion Start: 02/24/24 07:29 Freq: Status: Active Protocol: Document 03/27/24 09:49 NM (Rec: 03/27/24 10:32 NM [id number]) Ankle and Foot Goniometric Range of Motion Ankle and Foot Right Inversion 30 Eversion 15 Comments pain with eversion, mild pain with DF. Dorsiflexion: lacking 2 form neutral with knee flexed, lacking 5 deg from neutral with knee extended 03/27/24: 5 deg DF, 50 deg PF Left Dorsiflexion with Knee Flexed 0 Plantarflexion 50 Inversion 30 Eversion 20 Comments neutral DF; lacking 5 deg from neutral with leg straight 03/27/24: 6 deg past neutral, 50 deg PF PT-OP-L Special Tests Start: 02/24/24 07:29 Freq: Status: Active Protocol: Document 02/24/24 07:29 NM (Rec: 02/24/24 08:19 NM [id number]) Special Tests Foot/Ankle Special Tests Windlass Test Results - Comments demos small increase in arch height but denies pain Yanes Test Results - Comments tender but observable plantarflexion PT-OP-M Strength Start: 02/24/24 07:29 Freq: Status: Active Protocol: Document 03/27/24 09:49 NM (Rec: 03/27/24 10:32 NM [id number]) Hip Strength Hip Manual Muscle Testing Right Flexion (L2) 4- Good- Extension (S1) 4- Good- Abduction 4- Good- Adduction 4 Good External Rotation 4 Good Internal Rotation 4 Good Comments 03/27/24: 4/5 for all Left Flexion (L2) 4 Good Extension (S1) 4- Good- Abduction 4- Good- Adduction 4 Good External Rotation 4 Good Internal Rotation 4 Good Comments Compensates with trunk 03/27/24: 4/5 Ankle/Foot Strength Ankle and Foot Manual Muscle Testing Right Dorsiflexion (L4) 4- Good- Inversion 4- Good- Eversion (S1) 4- Good- Comments Plantarflexion: unable to perform 1 single leg heel raise; can perform 3 bilaterally; 3+/5 when tested in sitting 03/27/24: 4/5 for all; PF in sitting 4/5; able to do Left Dorsiflexion (L4) 4 Good Inversion 4 Good Eversion (S1) 4 Good Comments Plantarflexion: 9 single leg, challenging and fatiguing; 4/5 when tested in sitting B Heel raises: 3 03/27/24: 4/5 PT-OP-Q Treatments Start: 02/24/24 07:29 Freq: Status: Active Protocol: Document 03/31/24 08:05 AB (Rec: 03/31/24 13:00 AB [id number]) Gym Equipment Shuttle Balance red Details normal RENÉ, stagger Comments CGA hands above bars, with and without visual scanning and head turns. Therapeutic Exercises Sitting Exercises heel raises Side bilateral Standing Exercises calf stretches Standing Exercise Name Gastroc and Soleus 1. on stair 2 at wall Reps/Minutes 60 X2 straight X 1 bent, 2 60 knee straight 60 bent Comments decreased dayanna to stair stretch heel raises Standing Exercise Name 1. eccentric right 2. bilateral Reps/Minutes 1. X 2 2X 10 X 2 Comments right LE eccentric HR not dayanna Manual Therapy Treatment Soft Tissue Mobilization R ankle/foot Body Location right calf Mobilization Type Cross-Friction,Rolling Body Position Prone Joint Mobilizations R ankle/foot Joint TC and Tib fib Direction AP and AP PA for tib fib Grade III Body Position Hooklying Reps/Duration X10 X 3 each Comments monitored for pain Neuro Re-Education Treatment Balance Activities marching on blue cushion Reps/Duration X10 Comments CGA hands above bars modified tandem Details hands above bars, CGA Surface faom Comments with head turns and visual scanning, ( stagger stance to tandem not full tandem ) Romberg Details on foam with Comments hands above bars, CGA with head turns SLS Details BLE Comments Stable, on foam, with head turns and without head turns CGA hands above bars PT-OP-T Assessment and Plan Start: 02/24/24 07:29 Freq: Status: Active Protocol: Document 03/31/24 08:05 AB (Rec: 03/31/24 13:00 AB [id number]) Physical Therapy Assessment Goals Seven Impairment standing Longterm Goal (LTG) Pt will report no limitation in standing time due to R ankle pain in 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 and to begin pt goal of ability to tolerate standing exercise for weight loss or ADLs 03/27/24: needs to be able to stand 85 min; states that she has stood/ambulate for 2-3 hrs at time LTG Duration 12 weeks PROGRESSING Six Impairment ankle strength Rn Support Services Goal (LTG) Pt will increase R global ankle strength to at least 4+/ 5 without increase in baseline pain in order to demonstrate improved ankle stability during gait, stance, and ADLs 03/27/24: 4/5 for DF/eversion/ inversion, single leg heel raise 6 LTG Duration 12 weeks Five Impairment strength: ankle plantarflexion Short Term Goal (STG) Pt will be able to perform at least 2 sets of 10 B heel raises without increase in baseline pain or compensation in order to demonstrate improved plantarflexion strength for gait propulsion and ADLs 03/27/24: pt has completed 2x10 STG Duration 6 weeks Rn Support Services Goal (LTG) Pt will be able to perform at least 10 single leg heel raises on RLE without increase in baseline pain or compensation in order to demonstrate improved plantarflexion strength for gait propulsion and ADLs 03/27/24: 6 single leg heel raises on RLE LTG Duration 12 weeks Four Impairment strength: hip flex/abd/ext strength 4-/5 MMT Short Term Goal (STG) Pt will improve R hip flex/ext /abd strength to at least 4/5 in order to demonstrate improved proximal stability for stairs, gait, ADLs 03/27/24: 4/5 for all STG Duration 8 weeks Longterm Goal (LTG) Pt will improve R hip flex/ext /abd strength to at least 4+/5 in order to demonstrate improved proximal stability for stairs, gait, ADLs LTG Duration 12 weeks Three Impairment ROM: B ankle dorsiflexion limited Longterm Goal (LTG) Pt will improve L ankle dorsiflexion AROM to at least 3 deg above neutral in order to demonstrates improved ankle mobility for gait and stairs 03/27/24: 6 deg above neutral LTG Duration 12 weeks Two Impairment ROM: R ankle dorsiflexion 2 deg below neutral Short Term Goal (STG) Pt will improve R ankle dorsiflexion AROM to at least neutral in order to demonstrate improved Achilles length and mobility for gait/ stairs 03/27/24: 5 deg DF above neutral STG Duration 8 weeks Rn Support Services Goal (LTG) Pt will improve R ankle dorsiflexion AROM to at least 2 deg above neutral in order to demonstrate improved Achilles length and mobility for gait/stairs 03/27/24: 5 deg DF above neutral LTG Duration 12 weeks MET One Impairment activity tolerance/QOL: FAAM 3284 (ADL), (sport); LEFS /80 Short Term Goal (STG) Pt will increase ADL FAAM score by at least 8 points (1 MCID) in order to demonstrate improved symptom management and activity tolerance for ADLs 03/27/24: ADL FAAM 52/84 STG Duration 6 weeks MET Longterm Goal (LTG) Pt will increase ADL FAAM score by at least 16 points (2 MCID) in order to demonstrate improved symptom management and activity tolerance for ADLs 03/27/24: ADL FAAM 52/84 LTG Duration 12 weeks MET Assessment Summary Assessment Florence reports feeling less pain end of session, ( in standing ) Good dayanna to calf stretch at wall, discomfort to stair stretch and eccentric heel raise this session. Patient comments she felt she was walking with less pain post calf stretch on step. Physical Therapy Plan Frequency and Duration Frequency of Treatment 1-2x/wk Duration of treatment (weeks) 12 Plan of Care Start Date 02/24/24 Plan of Care End Date 05/22/24 Next Visit Focus/Plan Next Note Type Treatment Note Next Visit Plan romana then trial SL heel raise/ ecce HR, or leg press vs eccentric heel raise, SLS, LAQ begin proprioceptive work for balance on even/uneven surface and cont with glute strength Possibly calf stretch at wall. Manual treatment: STM, joint mobilization to increase DF
--- NOTE | 2024-04-03 16:15 | PT-OP ANOTE ---
PT called pt at 1615 to follow up about her MD appt to determine next step in plan. Rescheduled for next Wed because pt missed her appt. She reports has been miserable- unsure if shoes or if from last session. States very sore. Pt may be able to adjust work hours to still see PT here vs discharging to another clinic.
--- NOTE | 2024-04-07 09:54 | PT.OTN ---
Current Diagnoses Rheumatoid arthritis, unspecified (04/07/24) Stiffness of right ankle, not elsewhere classified (04/07/24) Contracture of muscle, right lower leg (04/07/24) Plantar fascial fibromatosis (04/07/24) Achilles tendinitis, right leg (04/07/24) Peroneal tendinitis, right leg (04/07/24) Other lack of coordination (04/07/24) Weakness (04/07/24) Physical Therapy Treatment Note PT-OP-A Visit Information Start: 02/24/24 07:29 Freq: Status: Active Protocol: Document 04/07/24 08:05 AB (Rec: 04/07/24 09:54 AB [id number]) Out-Patient Physical Therapy Visit Information Visit Information Visit Type Treatment Note Visit Note allergy to paper tape Access Code: [email or web address] Visit Start Time 08:20 Visit Stop Time 09:13 Visit Number 12 Number of TITLE 1 TUTOR Visits 2 Evaluation Information Evaluation Date 02/24/24 Precautions Precautions Hx of RA (R shoulder), polyarthritis (L knee pain) PT-OP-B Current Condition Start: 02/24/24 07:29 Freq: Status: Active Protocol: Document 02/24/24 07:29 NM (Rec: 02/24/24 08:19 NM [id number]) Current Condition History of Current Condition Onset Date several months ago Current Complaints pain, mobility History of Current Condition Pt presents with chronic R ankle pain, beginning several months ago and saw doctor in Aug/Sep 2023. Pt has hx of B plantar fasciitis, had PT. She also had foot pain along lateral ankle. Currently, pt has R achilles pain, along posterior ankle. She reports improving but still bothersome . Pt reports that her MD was wanting her to be pain free by 02/06 or else he would cast her or consider surgery. She sleeps in a brace that keeps her ankles stuck at 90 degrees. Her shoe-wear also determines pain levels. Pt has PMH of RA and polyarthritis in her L knee. Takes daily tylenol and ibuprofen, which helps her pain levels considerably. 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 Pt reports impairments with stairs, ambulation, sleep, driving. Pt reports edema along her ankle after WB for extended periods. 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 Patient reports her ankle heel hurts all the time. PT-OP-F Manual Assessment Start: 02/24/24 07:29 Freq: Status: Active Protocol: Document 02/24/24 07:29 NM (Rec: 02/24/24 13:00 NM [id number]) Manual Assessments Soft Tissue Assessment Soft Tissue Mobility Assessment Limitations in B ankle dorsiflexion related to heel cord length. Edema along R ankle, localized swelling at R Achilles insertion and at midsection, thickening. No palpable nodules along R plantar fascia Joint Mobility Assessment Joint Mobility Assessment Limitations in R great toe extension, ray mobility PT-OP-G Mobility & Gait Start: 02/24/24 07:29 Freq: Status: Active Protocol: Document 02/24/24 07:29 NM (Rec: 02/24/24 08:19 NM [id number]) OP Gait Assessment Gait Distance (Feet) 150 Assistive Devices Assistive Device None Gait Deviations General Gait Pattern Antalgic,Decreased Feet Clearance Factors Limiting Gait Function Factors Limiting Gait Function Decreased Activity Tolerance, Decreased Strength,Limited Range of Motion,Pain,Poor Balance Comments Gait Comments Demonstrates limitations in B ankle dorsiflexion, very stiff with limited toe off or propulsion during gait. Feet are very flat, slight pronation with stance, overall very rigid. Demos narrow RENÉ PT-OP-J Posture/Palpation/Skin Start: 02/24/24 07:29 Freq: Status: Active Protocol: Document 02/24/24 07:29 NM (Rec: 02/24/24 15:47 NM [id number]) Posture Evaluation Position Standing Head/C-Spine Posture Forward Head T-Spine Posture Increased Kyphosis L-Spine Posture Increased Lordosis Weight Distribution Weight Shifted Left,Decreased Wt.Bear on (R) Hip Posture (L) Externally Rotated,(R) Externally Rotated Knee Posture (L) Genu Valgus,(R) Genu Valgus Ankle/Foot Posture (L) Plantarflexed,(R) Plantarflexed,(L) Pronated,(R) Pronated Foot Arch (L) Low Arch,(R) Low Arch Toe Posture (L) Flexed Toes,(R) Flexed Toes Palpation Assessment Location R ankle Palpation Findings Edema,Soft Tissue Tightness, Tenderness Palpation Details Global edema in R ankle Increased redness, tenderness and swelling of R ankle along Achilles at insertion and midportion Tenderness along posterior heel and calcaneus Thickened R achilles tendon PT-OP-K Range of Motion Start: 02/24/24 07:29 Freq: Status: Active Protocol: Document 03/27/24 09:49 NM (Rec: 03/27/24 10:32 NM [id number]) Ankle and Foot Goniometric Range of Motion Ankle and Foot Right Inversion 30 Eversion 15 Comments pain with eversion, mild pain with DF. Dorsiflexion: lacking 2 form neutral with knee flexed, lacking 5 deg from neutral with knee extended 03/27/24: 5 deg DF, 50 deg PF Left Dorsiflexion with Knee Flexed 0 Plantarflexion 50 Inversion 30 Eversion 20 Comments neutral DF; lacking 5 deg from neutral with leg straight 03/27/24: 6 deg past neutral, 50 deg PF PT-OP-L Special Tests Start: 02/24/24 07:29 Freq: Status: Active Protocol: Document 02/24/24 07:29 NM (Rec: 02/24/24 08:19 NM [id number]) Special Tests Foot/Ankle Special Tests Windlass Test Results - Comments demos small increase in arch height but denies pain Yanes Test Results - Comments tender but observable plantarflexion PT-OP-M Strength Start: 02/24/24 07:29 Freq: Status: Active Protocol: Document 03/27/24 09:49 NM (Rec: 03/27/24 10:32 NM [id number]) Hip Strength Hip Manual Muscle Testing Right Flexion (L2) 4- Good- Extension (S1) 4- Good- Abduction 4- Good- Adduction 4 Good External Rotation 4 Good Internal Rotation 4 Good Comments 03/27/24: 4/5 for all Left Flexion (L2) 4 Good Extension (S1) 4- Good- Abduction 4- Good- Adduction 4 Good External Rotation 4 Good Internal Rotation 4 Good Comments Compensates with trunk 03/27/24: 4/5 Ankle/Foot Strength Ankle and Foot Manual Muscle Testing Right Dorsiflexion (L4) 4- Good- Inversion 4- Good- Eversion (S1) 4- Good- Comments Plantarflexion: unable to perform 1 single leg heel raise; can perform 3 bilaterally; 3+/5 when tested in sitting 03/27/24: 4/5 for all; PF in sitting 4/5; able to do Left Dorsiflexion (L4) 4 Good Inversion 4 Good Eversion (S1) 4 Good Comments Plantarflexion: 9 single leg, challenging and fatiguing; 4/5 when tested in sitting B Heel raises: 3 03/27/24: 4/5 PT-OP-Q Treatments Start: 02/24/24 07:29 Freq: Status: Active Protocol: Document 04/07/24 08:05 AB (Rec: 04/07/24 09:54 AB [id number]) Therapeutic Exercises Supine Exercises ankle pumps Supine Exercise Name with LE's elevated post manual Reps/Minutes X30 X 3 Sitting Exercises AROM DF Side right Resistance level one band Reps/Minutes X15 without band and X 15 with band hip abduction Sitting Exercise Name glute medius isometric HEP Resistance level 3 band at thighs (HEP lev 3 green band) Reps/Minutes 60 and 15 X 3without hold Standing Exercises mini squat with band Side bilateral Resistance level 3 band at thighs Reps/Minutes X15 X 2 Comments Verbal cues to squat to a depth that does not increase pain Manual Therapy Treatment Soft Tissue Mobilization R ankle/foot Body Location right calf Mobilization Type Cross-Friction,Rolling,Other Joint Mobilizations R ankle/foot Joint TC and Tib fib Direction AP and AP PA for tib fib Grade III Body Position Hooklying Reps/Duration X10 X 3 each Comments monitored for pain PT-OP-R Modalities Start: 02/24/24 07:29 Freq: Status: Active Protocol: Document 04/07/24 08:05 AB (Rec: 04/07/24 09:54 AB [id number]) Hot Pack/Cold Pack Treatment right ankle Comments 10 min with LE's elevated above the heart PT-OP-T Assessment and Plan Start: 02/24/24 07:29 Freq: Status: Active Protocol: Document 04/07/24 08:05 AB (Rec: 04/07/24 09:54 AB [id number]) Physical Therapy Assessment Goals Seven Impairment standing Corporate Webmaster Goal (LTG) Pt will report no limitation in standing time due to R ankle pain in 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 and to begin pt goal of ability to tolerate standing exercise for weight loss or ADLs 03/27/24: needs to be able to stand 85 min; states that she has stood/ambulate for 2-3 hrs at time LTG Duration 12 weeks PROGRESSING Six Impairment ankle strength Mcfp Goal (LTG) Pt will increase R global ankle strength to at least 4+/ 5 without increase in baseline pain in order to demonstrate improved ankle stability during gait, stance, and ADLs 03/27/24: 4/5 for DF/eversion/ inversion, single leg heel raise 6 LTG Duration 12 weeks Five Impairment strength: ankle plantarflexion Short Term Goal (STG) Pt will be able to perform at least 2 sets of 10 B heel raises without increase in baseline pain or compensation in order to demonstrate improved plantarflexion strength for gait propulsion and ADLs 03/27/24: pt has completed 2x10 STG Duration 6 weeks Mcfp Goal (LTG) Pt will be able to perform at least 10 single leg heel raises on RLE without increase in baseline pain or compensation in order to demonstrate improved plantarflexion strength for gait propulsion and ADLs 03/27/24: 6 single leg heel raises on RLE LTG Duration 12 weeks Four Impairment strength: hip flex/abd/ext strength 4-/5 MMT Short Term Goal (STG) Pt will improve R hip flex/ext /abd strength to at least 4/5 in order to demonstrate improved proximal stability for stairs, gait, ADLs 03/27/24: 4/5 for all STG Duration 8 weeks Mcfp Goal (LTG) Pt will improve R hip flex/ext /abd strength to at least 4+/5 in order to demonstrate improved proximal stability for stairs, gait, ADLs LTG Duration 12 weeks Three Impairment ROM: B ankle dorsiflexion limited [employer] We[employer]aster Goal (LTG) Pt will improve L ankle dorsiflexion AROM to at least 3 deg above neutral in order to demonstrates improved ankle mobility for gait and stairs 03/27/24: 6 deg above neutral LTG Duration 12 weeks Two Impairment ROM: R ankle dorsiflexion 2 deg below neutral Short Term Goal (STG) Pt will improve R ankle dorsiflexion AROM to at least neutral in order to demonstrate improved Achilles length and mobility for gait/ stairs 03/27/24: 5 deg DF above neutral STG Duration 8 weeks [employer] We[employer]aster Goal (LTG) Pt will improve R ankle dorsiflexion AROM to at least 2 deg above neutral in order to demonstrate improved Achilles length and mobility for gait/stairs 03/27/24: 5 deg DF above neutral LTG Duration 12 weeks MET One Impairment activity tolerance/QOL: FAAM 32/84 (ADL), (sport); LEFS /80 Short Term Goal (STG) Pt will increase ADL FAAM score by at least 8 points (1 MCID) in order to demonstrate improved symptom management and activity tolerance for ADLs 03/27/24: ADL FAAM 52/84 STG Duration 6 weeks MET [employer] We[employer]aster Goal (LTG) Pt will increase ADL FAAM score by at least 16 points (2 MCID) in order to demonstrate improved symptom management and activity tolerance for ADLs 03/27/24: ADL FAAM 52/84 LTG Duration 12 weeks MET Assessment Summary Assessment Great toe 2.5 cm from wall with knee to wall PROM DF body over ankle movement. Patient reports no pain with mini squat, and mini squat addded to HEP. Physical Therapy Plan Frequency and Duration Frequency of Treatment 1-2x/wk Duration of treatment (weeks) 12 Plan of Care Start Date 02/24/24 Plan of Care End Date 05/22/24 Next Visit Focus/Plan Next Note Type Treatment Note Next Visit Plan romana then trial SL heel raise/ ecce HR, or leg press vs eccentric heel raise, SLS, LAQ begin proprioceptive work for balance on even/uneven surface and cont with glute strength Possibly calf stretch at wall. Manual treatment: STM, joint mobilization to increase DF
--- NOTE | 2024-04-10 12:17 | PT.OTN ---
Current Diagnoses Rheumatoid arthritis, unspecified (04/10/24) Stiffness of right ankle, not elsewhere classified (04/10/24) Contracture of muscle, right lower leg (04/10/24) Plantar fascial fibromatosis (04/10/24) Achilles tendinitis, right leg (04/10/24) Peroneal tendinitis, right leg (04/10/24) Other lack of coordination (04/10/24) Weakness (04/10/24) Physical Therapy Treatment Note PT-OP-A Visit Information Start: 02/24/24 07:29 Freq: Status: Active Protocol: Document 04/10/24 09:36 AB (Rec: 04/10/24 12:17 AB [id number]) Out-Patient Physical Therapy Visit Information Visit Information Visit Type Treatment Note Visit Note allergy to paper tape Access Code: [email or web address] Visit Start Time 09:48 Visit Stop Time 10:32 Visit Number 13 Number of COMPRESSOR [employer]TER[employer] PELLETS Visits 3 Evaluation Information Evaluation Date 02/24/24 Precautions Precautions Hx of RA (R shoulder), polyarthritis (L knee pain) PT-OP-B Current Condition Start: 02/24/24 07:29 Freq: Status: Active Protocol: Document 02/24/24 07:29 NM (Rec: 02/24/24 08:19 NM [id number]) Current Condition History of Current Condition Onset Date several months ago Current Complaints pain, mobility History of Current Condition Pt presents with chronic R ankle pain, beginning several months ago and saw doctor in Aug/Sep 2023. Pt has hx of B plantar fasciitis, had PT. She also had foot pain along lateral ankle. Currently, pt has R achilles pain, along posterior ankle. She reports improving but still bothersome . Pt reports that her MD was wanting her to be pain free by 02/06 or else he would cast her or consider surgery. She sleeps in a brace that keeps her ankles stuck at 90 degrees. Her shoe-wear also determines pain levels. Pt has PMH of RA and polyarthritis in her L knee. Takes daily tylenol and ibuprofen, which helps her pain levels considerably. 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 Pt reports impairments with stairs, ambulation, sleep, driving. Pt reports edema along her ankle after WB for extended periods. 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 Patient reports new shoes has made a 300% improvement. Patient reports she still has medial calcaneal pain 10/26. Pt reports MD said bone spurs are small and not causing the problem, at the achilles, plantar fascial and dorsal surface of foot. PT-OP-F Manual Assessment Start: 02/24/24 07:29 Freq: Status: Active Protocol: Document 02/24/24 07:29 NM (Rec: 02/24/24 13:00 NM [id number]) Manual Assessments Soft Tissue Assessment Soft Tissue Mobility Assessment Limitations in B ankle dorsiflexion related to heel cord length. Edema along R ankle, localized swelling at R Achilles insertion and at midsection, thickening. No palpable nodules along R plantar fascia Joint Mobility Assessment Joint Mobility Assessment Limitations in R great toe extension, ray mobility PT-OP-G Mobility & Gait Start: 02/24/24 07:29 Freq: Status: Active Protocol: Document 02/24/24 07:29 NM (Rec: 02/24/24 08:19 NM [id number]) OP Gait Assessment Gait Distance (Feet) 150 Assistive Devices Assistive Device None Gait Deviations General Gait Pattern Antalgic,Decreased Feet Clearance Factors Limiting Gait Function Factors Limiting Gait Function Decreased Activity Tolerance, Decreased Strength,Limited Range of Motion,Pain,Poor Balance Comments Gait Comments Demonstrates limitations in B ankle dorsiflexion, very stiff with limited toe off or propulsion during gait. Feet are very flat, slight pronation with stance, overall very rigid. Demos narrow RENÉ PT-OP-J Posture/Palpation/Skin Start: 02/24/24 07:29 Freq: Status: Active Protocol: Document 02/24/24 07:29 NM (Rec: 02/24/24 15:47 NM [id number]) Posture Evaluation Position Standing Head/C-Spine Posture Forward Head T-Spine Posture Increased Kyphosis L-Spine Posture Increased Lordosis Weight Distribution Weight Shifted Left,Decreased Wt.Bear on (R) Hip Posture (L) Externally Rotated,(R) Externally Rotated Knee Posture (L) Genu Valgus,(R) Genu Valgus Ankle/Foot Posture (L) Plantarflexed,(R) Plantarflexed,(L) Pronated,(R) Pronated Foot Arch (L) Low Arch,(R) Low Arch Toe Posture (L) Flexed Toes,(R) Flexed Toes Palpation Assessment Location R ankle Palpation Findings Edema,Soft Tissue Tightness, Tenderness Palpation Details Global edema in R ankle Increased redness, tenderness and swelling of R ankle along Achilles at insertion and midportion Tenderness along posterior heel and calcaneus Thickened R achilles tendon PT-OP-K Range of Motion Start: 02/24/24 07:29 Freq: Status: Active Protocol: Document 03/27/24 09:49 NM (Rec: 03/27/24 10:32 NM [id number]) Ankle and Foot Goniometric Range of Motion Ankle and Foot Right Inversion 30 Eversion 15 Comments pain with eversion, mild pain with DF. Dorsiflexion: lacking 2 form neutral with knee flexed, lacking 5 deg from neutral with knee extended 03/27/24: 5 deg DF, 50 deg PF Left Dorsiflexion with Knee Flexed 0 Plantarflexion 50 Inversion 30 Eversion 20 Comments neutral DF; lacking 5 deg from neutral with leg straight 03/27/24: 6 deg past neutral, 50 deg PF PT-OP-L Special Tests Start: 02/24/24 07:29 Freq: Status: Active Protocol: Document 02/24/24 07:29 NM (Rec: 02/24/24 08:19 NM [id number]) Special Tests Foot/Ankle Special Tests Windlass Test Results - Comments demos small increase in arch height but denies pain Yanes Test Results - Comments tender but observable plantarflexion PT-OP-M Strength Start: 02/24/24 07:29 Freq: Status: Active Protocol: Document 03/27/24 09:49 NM (Rec: 03/27/24 10:32 NM [id number]) Hip Strength Hip Manual Muscle Testing Right Flexion (L2) 4- Good- Extension (S1) 4- Good- Abduction 4- Good- Adduction 4 Good External Rotation 4 Good Internal Rotation 4 Good Comments 03/27/24: 4/5 for all Left Flexion (L2) 4 Good Extension (S1) 4- Good- Abduction 4- Good- Adduction 4 Good External Rotation 4 Good Internal Rotation 4 Good Comments Compensates with trunk 03/27/24: 4/5 Ankle/Foot Strength Ankle and Foot Manual Muscle Testing Right Dorsiflexion (L4) 4- Good- Inversion 4- Good- Eversion (S1) 4- Good- Comments Plantarflexion: unable to perform 1 single leg heel raise; can perform 3 bilaterally; 3+/5 when tested in sitting 03/27/24: 4/5 for all; PF in sitting 4/5; able to do Left Dorsiflexion (L4) 4 Good Inversion 4 Good Eversion (S1) 4 Good Comments Plantarflexion: 9 single leg, challenging and fatiguing; 4/5 when tested in sitting B Heel raises: 3 03/27/24: 4/5 PT-OP-Q Treatments Start: 02/24/24 07:29 Freq: Status: Active Protocol: Document 04/10/24 09:36 AB (Rec: 04/10/24 12:17 AB [id number]) Therapeutic Exercises Sitting Exercises AROM DF Side bilateral Reps/Minutes X30 Comments post manual therapy Standing Exercises calf stretches Standing Exercise Name Gastroc and Soleus at wall right LE Reps/Minutes 60 straight 60 sec bend X 2 heel raises Standing Exercise Name Eccentric Reps/Minutes X3 on step X 10 X2 on floor Manual Therapy Treatment Soft Tissue Mobilization R ankle/foot Body Location right calf Mobilization Type Cross-Friction,Rolling,Other Joint Mobilizations R ankle/foot Joint TC Mulligan with movement Direction AP Grade III Body Position Standing Reps/Duration X10 X 3 each Comments monitored for pain Neuro Re-Education Treatment Balance Activities marching on blue cushion Reps/Duration X10 Comments CGA hands above bars modified tandem Details hands above bars, CGA Surface faom Comments hands above bars, CGA with head turns, eyes closed and visual scanning Romberg Details on foam with Comments hands above bars, CGA with head turns, eyes closed and visual scanning PT-OP-R Modalities Start: 02/24/24 07:29 Freq: Status: Active Protocol: Document 04/07/24 08:05 AB (Rec: 04/07/24 09:54 AB [id number]) Hot Pack/Cold Pack Treatment right ankle Comments 10 min with LE's elevated above the heart PT-OP-T Assessment and Plan Start: 02/24/24 07:29 Freq: Status: Active Protocol: Document 04/10/24 09:36 AB (Rec: 04/10/24 12:17 AB [id number]) Physical Therapy Assessment Goals Seven Impairment standing Mcfp Goal (LTG) Pt will report no limitation in standing time due to R ankle pain in 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 and to begin pt goal of ability to tolerate standing exercise for weight loss or ADLs 03/27/24: needs to be able to stand 85 min; states that she has stood/ambulate for 2-3 hrs at time LTG Duration 12 weeks PROGRESSING Six Impairment ankle strength Assistant Printer Floor Covering Goal (LTG) Pt will increase R global ankle strength to at least 4+/ 5 without increase in baseline pain in order to demonstrate improved ankle stability during gait, stance, and ADLs 03/27/24: 4/5 for DF/eversion/ inversion, single leg heel raise 6 LTG Duration 12 weeks Five Impairment strength: ankle plantarflexion Short Term Goal (STG) Pt will be able to perform at least 2 sets of 10 B heel raises without increase in baseline pain or compensation in order to demonstrate improved plantarflexion strength for gait propulsion and ADLs 03/27/24: pt has completed 2x10 STG Duration 6 weeks Mcfp Goal (LTG) Pt will be able to perform at least 10 single leg heel raises on RLE without increase in baseline pain or compensation in order to demonstrate improved plantarflexion strength for gait propulsion and ADLs 03/27/24: 6 single leg heel raises on RLE LTG Duration 12 weeks Four Impairment strength: hip flex/abd/ext strength 4-/5 MMT Short Term Goal (STG) Pt will improve R hip flex/ext /abd strength to at least 4/5 in order to demonstrate improved proximal stability for stairs, gait, ADLs 03/27/24: 4/5 for all STG Duration 8 weeks Assistant [employer]inter Floor Covering Goal (LTG) Pt will improve R hip flex/ext /abd strength to at least 4+/5 in order to demonstrate improved proximal stability for stairs, gait, ADLs LTG Duration 12 weeks Three Impairment ROM: B ankle dorsiflexion limited Mcfp Goal (LTG) Pt will improve L ankle dorsiflexion AROM to at least 3 deg above neutral in order to demonstrates improved ankle mobility for gait and stairs 03/27/24: 6 deg above neutral LTG Duration 12 weeks Two Impairment ROM: R ankle dorsiflexion 2 deg below neutral Short Term Goal (STG) Pt will improve R ankle dorsiflexion AROM to at least neutral in order to demonstrate improved Achilles length and mobility for gait/ stairs 03/27/24: 5 deg DF above neutral STG Duration 8 weeks Mcfp Goal (LTG) Pt will improve R ankle dorsiflexion AROM to at least 2 deg above neutral in order to demonstrate improved Achilles length and mobility for gait/stairs 03/27/24: 5 deg DF above neutral LTG Duration 12 weeks MET One Impairment activity tolerance/QOL: FAAM 32/84 (ADL), 2/ (sport); LEFS 26/80 Short Term Goal (STG) Pt will increase ADL FAAM score by at least 8 points (1 MCID) in order to demonstrate improved symptom management and activity tolerance for ADLs 03/27/24: ADL FAAM 52/84 STG Duration 6 weeks MET Mcfp Goal (LTG) Pt will increase ADL FAAM score by at least 16 points (2 MCID) in order to demonstrate improved symptom management and activity tolerance for ADLs 03/27/24: ADL FAAM 52/84 LTG Duration 12 weeks MET Assessment Summary Assessment Patient reports no increased pain end of session, and into session with reports of overall decreased pain, attributes to new shoes. Physical Therapy Plan Frequency and Duration Frequency of Treatment 1-2x/wk Duration of treatment (weeks) 12 Plan of Care Start Date 02/24/24 Plan of Care End Date 05/22/24 Next Visit Focus/Plan Next Note Type Treatment Note Next Visit Plan romana then trial SL heel raise/ ecce HR, or leg press vs eccentric heel raise, SLS, LAQ begin proprioceptive work for balance on even/uneven surface and cont with glute strength Possibly calf stretch at wall. Manual treatment: STM, joint mobilization to increase DF
--- NOTE | 2024-04-14 12:25 | PT.OTN ---
Current Diagnoses Rheumatoid arthritis, unspecified (04/14/24) Stiffness of right ankle, not elsewhere classified (04/14/24) Contracture of muscle, right lower leg (04/14/24) Plantar fascial fibromatosis (04/14/24) Achilles tendinitis, right leg (04/14/24) Peroneal tendinitis, right leg (04/14/24) Other lack of coordination (04/14/24) Weakness (04/14/24) Physical Therapy Treatment Note PT-OP-A Visit Information Start: 02/24/24 07:29 Freq: Status: Active Protocol: Document 04/14/24 09:45 NM (Rec: 04/14/24 10:31 NM [id number]) Out-Patient Physical Therapy Visit Information Visit Information Visit Type Discharge Summary Visit Note allergy to paper tape Visit Start Time 09:52 Visit Stop Time 10:30 Visit Number 14 Evaluation Information Evaluation Date 02/24/24 Precautions Precautions Hx of RA (R shoulder), polyarthritis (L knee pain) PT-OP-B Current Condition Start: 02/24/24 07:29 Freq: Status: Active Protocol: Document 02/24/24 07:29 NM (Rec: 02/24/24 08:19 NM [id number]) Current Condition History of Current Condition Onset Date several months ago Current Complaints pain, mobility History of Current Condition Pt presents with chronic R ankle pain, beginning several months ago and saw doctor in Aug/Sep 2023. Pt has hx of B plantar fasciitis, had PT. She also had foot pain along lateral ankle. Currently, pt has R achilles pain, along posterior ankle. She reports improving but still bothersome . Pt reports that her MD was wanting her to be pain free by 02/06 or else he would cast her or consider surgery. She sleeps in a brace that keeps her ankles stuck at 90 degrees. Her shoe-wear also determines pain levels. Pt has PMH of RA and polyarthritis in her L knee. Takes daily tylenol and ibuprofen, which helps her pain levels considerably. 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 Pt reports impairments with stairs, ambulation, sleep, driving. Pt reports edema along her ankle after WB for extended periods. 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 States new shoes help but not greatest. Pt reports that appt with Dr. Vieira went well but states that bone spurs are not going to change the issue. As long as pt able to maintain and deal w / symptoms, then can put off surgery or cast until next summer. PT-OP-F Manual Assessment Start: 02/24/24 07:29 Freq: Status: Active Protocol: Document 02/24/24 07:29 NM (Rec: 02/24/24 13:00 NM [id number]) Manual Assessments Soft Tissue Assessment Soft Tissue Mobility Assessment Limitations in B ankle dorsiflexion related to heel cord length. Edema along R ankle, localized swelling at R Achilles insertion and at midsection, thickening. No palpable nodules along R plantar fascia Joint Mobility Assessment Joint Mobility Assessment Limitations in R great toe extension, ray mobility PT-OP-G Mobility & Gait Start: 02/24/24 07:29 Freq: Status: Active Protocol: Document 02/24/24 07:29 NM (Rec: 02/24/24 08:19 NM [id number]) OP Gait Assessment Gait Distance (Feet) 150 Assistive Devices Assistive Device None Gait Deviations General Gait Pattern Antalgic,Decreased Feet Clearance Factors Limiting Gait Function Factors Limiting Gait Function Decreased Activity Tolerance, Decreased Strength,Limited Range of Motion,Pain,Poor Balance Comments Gait Comments Demonstrates limitations in B ankle dorsiflexion, very stiff with limited toe off or propulsion during gait. Feet are very flat, slight pronation with stance, overall very rigid. Demos narrow RENÉ PT-OP-J Posture/Palpation/Skin Start: 02/24/24 07:29 Freq: Status: Active Protocol: Document 02/24/24 07:29 NM (Rec: 02/24/24 15:47 NM [id number]) Posture Evaluation Position Standing Head/C-Spine Posture Forward Head T-Spine Posture Increased Kyphosis L-Spine Posture Increased Lordosis Weight Distribution Weight Shifted Left,Decreased Wt.Bear on (R) Hip Posture (L) Externally Rotated,(R) Externally Rotated Knee Posture (L) Genu Valgus,(R) Genu Valgus Ankle/Foot Posture (L) Plantarflexed,(R) Plantarflexed,(L) Pronated,(R) Pronated Foot Arch (L) Low Arch,(R) Low Arch Toe Posture (L) Flexed Toes,(R) Flexed Toes Palpation Assessment Location R ankle Palpation Findings Edema,Soft Tissue Tightness, Tenderness Palpation Details Global edema in R ankle Increased redness, tenderness and swelling of R ankle along Achilles at insertion and midportion Tenderness along posterior heel and calcaneus Thickened R achilles tendon PT-OP-K Range of Motion Start: 02/24/24 07:29 Freq: Status: Active Protocol: Document 04/14/24 09:45 NM (Rec: 04/14/24 10:31 NM [id number]) Ankle and Foot Goniometric Range of Motion Ankle and Foot Right Dorsiflexion with Knee Flexed 8 Plantarflexion 50 Inversion 30 Eversion 15 Comments pain with eversion, mild pain with DF. Dorsiflexion: lacking 2 form neutral with knee flexed, lacking 5 deg from neutral with knee extended 03/27/24: 5 deg DF, 50 deg PF 04/14/24: 8 deg DF 50 deg PF Left Dorsiflexion with Knee Flexed 8 Plantarflexion 50 Inversion 30 Eversion 20 Comments neutral DF; lacking 5 deg from neutral with leg straight 03/27/24: 6 deg past neutral, 50 deg PF 04/14/24: 8 deg past neutral DF , 50 deg PF PT-OP-L Special Tests Start: 02/24/24 07:29 Freq: Status: Active Protocol: Document 02/24/24 07:29 NM (Rec: 02/24/24 08:19 NM [id number]) Special Tests Foot/Ankle Special Tests Windlass Test Results - Comments demos small increase in arch height but denies pain Yanes Test Results - Comments tender but observable plantarflexion PT-OP-M Strength Start: 07/08/24 07:29 Freq: Status: Active Protocol: Document 04/14/24 09:45 NM (Rec: 04/14/24 10:31 NM [id number]) Hip Strength Hip Manual Muscle Testing Right Flexion (L2) 4 Good Extension (S1) 4 Good Abduction 4 Good Adduction 4 Good External Rotation 4 Good Internal Rotation 4 Good Comments 04/14/24, 03/27/24: 4/5 for all Left Flexion (L2) 4 Good Extension (S1) 4 Good Abduction 4 Good Adduction 4 Good External Rotation 4 Good Internal Rotation 4 Good Comments Compensates with trunk 04/14/24, 03/27/24: 4/5 Knee Strength Knee Manual Muscle Testing Right Flexion (S2) 4 Good Extension (L3) 4 Good Left Flexion (S2) 4 Good Extension (L3) 4 Good Ankle/Foot Strength Ankle and Foot Manual Muscle Testing Right Dorsiflexion (L4) 4+ Good+ Inversion 4+ Good+ Eversion (S1) 4+ Good+ Comments Plantarflexion: unable to perform 1 single leg heel raise; can perform 3 bilaterally; 3+/5 when tested in sitting 03/27/24: 4/5 for all; PF in sitting 4/5; able to do 04/14/24: 4+/5 for all except PF, 10 single heel raises Left Dorsiflexion (L4) 4+ Good+ Inversion 4+ Good+ Eversion (S1) 4+ Good+ Comments Plantarflexion: 9 single leg, challenging and fatiguing; 4/5 when tested in sitting B Heel raises: 3 03/27/24: 4/5; 10 single leg 04/14/24: 4+/5 for all, 10 single leg heel raises PT-OP-Q Treatments Start: 02/24/24 07:29 Freq: Status: Active Protocol: Document 04/14/24 09:45 NM (Rec: 04/14/24 10:31 NM [id number]) Therapeutic Exercises Standing Exercises hip flexion Standing Exercise Name for hip strength and ankle DF Side bilateral Resistance level 1 band at toes Reps/Minutes 2x10 step up Side bilateral Equipment Used 8 step with prn hand support for balance Reps/Minutes 15 side steps Side bilateral Resistance level 3 band above knees Reps/Minutes 2x20 ft ea mini squat with band Side bilateral Resistance level 3 band at thighs Reps/Minutes 2x15 Comments cues to squat to a pain free depth heel raises Standing Exercise Name Eccentric Equipment Used B hand support 4 Reps/Minutes 2x15 Manual Therapy Treatment Consent Patient gave verbal consent for manual Yes treatment Soft Tissue Mobilization R ankle/foot Body Location right calf Mobilization Type Cross-Friction,Rolling,Other Joint Mobilizations R ankle/foot Joint TC Mulligan with movement Direction AP and AP PA for tib fib Grade III Body Position Hooklying Reps/Duration 2x30 Comments monitored for pain PT-OP-R Modalities Start: 02/24/24 07:29 Freq: Status: Active Protocol: Document 04/07/24 08:05 AB (Rec: 04/07/24 09:54 AB [id number]) Hot Pack/Cold Pack Treatment right ankle Comments 10 min with LE's elevated above the heart PT-OP-T Assessment and Plan Start: 02/24/24 07:29 Freq: Status: Active Protocol: Document 04/14/24 09:45 NM (Rec: 04/14/24 10:31 NM [id number]) Physical Therapy Assessment Goals Seven Impairment standing Residential Goal (LTG) Pt will report no limitation in standing time due to R ankle pain in 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 and to begin pt goal of ability to tolerate standing exercise for weight loss or ADLs 03/27/24: needs to be able to stand 85 min; states that she has stood/ambulate for 2-3 hrs at time 04/14/24: In new shoes, pt reports that she can stand/ ambulate as needed but still increases ankle pain at end of day LTG Duration 12 weeks PARTIALLY MET Six Impairment ankle strength Drawbridge Tender Goal (LTG) Pt will increase R global ankle strength to at least 4+/ 5 without increase in baseline pain in order to demonstrate improved ankle stability during gait, stance, and ADLs 03/27/24: 4/5 for DF/eversion/ inversion, single leg heel raise 6 04/14/24: 4+/5 for DF/eversion/ inversion LTG Duration 12 weeks MET Five Impairment strength: ankle plantarflexion Short Term Goal (STG) Pt will be able to perform at least 2 sets of 10 B heel raises without increase in baseline pain or compensation in order to demonstrate improved plantarflexion strength for gait propulsion and ADLs 03/27/24: pt has completed 2x10 STG Duration 6 weeks Residential Goal (LTG) Pt will be able to perform at least 10 single leg heel raises on RLE without increase in baseline pain or compensation in order to demonstrate improved plantarflexion strength for gait propulsion and ADLs 03/27/24: 6 single leg heel raises on RLE 04/14/24: 10 single leg heel raises on RLE but slight increase in pain LTG Duration 12 weeks PARTIALLY MET Four Impairment strength: hip flex/abd/ext strength 4-/5 MMT Short Term Goal (STG) Pt will improve R hip flex/ext /abd strength to at least 4/5 in order to demonstrate improved proximal stability for stairs, gait, ADLs 03/27/24: 4/5 for all STG Duration 8 weeks Drawbridge Tender Goal (LTG) Pt will improve R hip flex/ext /abd strength to at least 4+/5 in order to demonstrate improved proximal stability for stairs, gait, ADLs 04/14/24: 4/5 for all LTG Duration 12 weeks NOT MET Three Impairment ROM: B ankle dorsiflexion limited Residential Goal (LTG) Pt will improve L ankle dorsiflexion AROM to at least 3 deg above neutral in order to demonstrates improved ankle mobility for gait and stairs 03/27/24: 6 deg above neutral 04/10/24: 8 deg DF above neutral LTG Duration 12 weeks MET Two Impairment ROM: R ankle dorsiflexion 2 deg below neutral Short Term Goal (STG) Pt will improve R ankle dorsiflexion AROM to at least neutral in order to demonstrate improved Achilles length and mobility for gait/ stairs 03/27/24: 5 deg DF above neutral STG Duration 8 weeks Drawbridge Tender Goal (LTG) Pt will improve R ankle dorsiflexion AROM to at least 2 deg above neutral in order to demonstrate improved Achilles length and mobility for gait/stairs 03/27/24: 5 deg DF above neutral 04/14/24: 8 deg DF above neutral LTG Duration 12 weeks MET One Impairment activity tolerance/QOL: FAAM 32/84 (ADL), 232 (sport); LEFS Short Term Goal (STG) Pt will increase ADL FAAM score by at least 8 points (1 MCID) in order to demonstrate improved symptom management and activity tolerance for ADLs 03/27/24: ADL FAAM 52/84 STG Duration 6 weeks MET Drawbridge Tender Goal (LTG) Pt will increase ADL FAAM score by at least 16 points (2 MCID) in order to demonstrate improved symptom management and activity tolerance for ADLs 03/27/24: ADL FAAM 52/84 LTG Duration 12 weeks MET Progress Towards Goals Progress Towards Goals Progressing Toward Goals,Slow Progress due to Activity Tolerance,Slow Progress due to Medical Issues,Goals Met Assessment Summary Assessment Pt tolerated session well. Due to scheduling constraints from pt work, pt is planning to discharge today to maintenance program and will be getting a referral to PT elsewhere. Pt has good feedback for both single leg heel raises and deficit B heel raises on stairs. Reports mild increase in pain levels ( 2>4) but decreased with rest and not present at end of session. Continued with glute/ quad strengthening to improve proximal stability. Pt continues to respond best to manual treatments, no tenderness today with any mobilization or soft tissue treatment. Physical Therapy Plan Frequency and Duration Frequency of Treatment 1-2x/wk Duration of treatment (weeks) 12 Plan of Care Start Date 02/24/24 Plan of Care End Date 05/22/24 Therapeutic Interventions Therapeutic Interventions Balance Training,Gait Training ,Home Exercise Program,Joint Mobilizations,Manual Therapy, Neuromuscular Re-education, Patient/Caregiver Education, Self-Care/Home Management, Sensory Integration,Soft Tissue Mobilization,Taping, Therapeutic Activities, Therapeutic Exercises Modalities Cold Pack/Ice Massage,Electric Stimulation,Hot Packs Discharge Physical Therapy Discharge Reasons Patient Request Discharge Comments Pt has scheduling limitations due to work and will need to discharge today. She is planning to get a PT referral elsewhere Next Visit Focus/Plan Next Visit Plan discharge from PT
== END 2024-04-24 09:09 | disposition home or self-care (01) ==
LOC: PHYS 09:45
PROVIDERS: Family Provider Family Medicine; PCP Family Medicine; Referring Provider Podiatrist; Visit Provider Podiatrist
DX: M76.61 Achilles tendinitis, right leg (principal); M62.461 Contracture of muscle, right lower leg; M06.9 Rheumatoid arthritis, unspecified; M76.71 Peroneal tendinitis, right leg; M72.2 Plantar fascial fibromatosis; R53.1 Weakness; R27.8 Other lack of coordination; M25.671 Stiffness of right ankle, not elsewhere classified
CPT/HCPCS: 97010; 97110; 97112; 97140; 97161

== ENCOUNTER → 2024-09-30 17:16 | Outpatient (CLI) | payer OTHER, SELFPAY ==
--- NOTE | 2024-09-30 17:17 | DI.MG.S_ITS ---
BILATERAL DIGITAL SCREENING MAMMOGRAM 3D/2D WITH CAD: 09/30/2024 CLINICAL: Routine screening. Comparison is made to exams dated: 04/10/2019 mammogram, 06/27/2017 mammogram, and 05/31/2016 mammogram - [facility]. There are scattered areas of fibroglandular density (category b / 25%-50% glandular tissue). Current study was also evaluated with a Computer Aided Detection (CAD) system. No significant masses, calcifications, or other findings are seen in either breast. There has been no significant interval change. IMPRESSION: NEGATIVE There is no mammographic evidence of malignancy. A 1 year screening mammogram is recommended. Based on the Tyrer Cuzick model (a risk assessment model) the patient's lifetime risk is 6.0% and her 10 year risk is 2.3%. According to the ACR, ACS, and NCCN guidelines, an annual breast MRI exam along with mammogram is recommended if the patient's lifetime risk is 20% or greater. This exam was interpreted at Station ID: [id number]. NOTE: For mammograms, a report in lay terms will be sent to the patient. Approximately 15% of breast malignancies will not be visualized mammographically. In the management of a palpable breast mass, a negative mammogram must not discourage biopsy of a clinically suspicious lesion. Electronically Signed By: Francois brown/cisco:10/01/2024 18:19:11 letter sent: Normal Exam ACR BI-RADS Category 1: Negative
== END ==
LOC: MAMMO 17:17
PROVIDERS: Family Provider Family Medicine; PCP Family Medicine; Referring Provider Family Medicine; Visit Provider Family Medicine
DX: Z12.31 Encounter for screening mammogram for malignant neoplasm of breast (principal)
CPT/HCPCS: 77063; 77067

== ENCOUNTER 2024-10-16 23:30 | Emergency (ER) | payer OTHER, SELFPAY ==
[2024-10-16 23:40] VITALS: BP 131/64; PULSE 87; RESP 16; TEMP 36.6; O2SAT 97; BMI 41.1
--- NOTE | 2024-10-16 23:44 | DI.RAD.S_ITS ---
PROCEDURE: XR FINGER RT MIN 2V INDICATIONS: smashed 3rd finger TECHNIQUE: AP hand, 2 views of the 3rd finger(s) acquired. [facility] FINDINGS: Bones: No fractures or dislocations. No suspicious bony lesions. Soft tissues: No suspicious soft tissue calcifications. IMPRESSION: No acute osseous abnormality. If pain persists with conservative management, consider repeat x-ray in 10-14 days or cross-sectional imaging. Dictated by: Manny Wheat M.D. on 10/17/2024 at 0:06 Approved by: Manny Wheat M.D. on 10/17/2024 at 0:07
--- NOTE | 2024-10-17 00:53 | PC.NURSE ---
Patient given ice pack for her finger upon arrival
--- NOTE | 2024-10-17 01:38 | ED.UPPEXIN ---
HPI - Extremity Injury (Upper) General Chief Complaint: Extremity Injury, Upper Stated Complaint: Pinched right ring finger;purple Time Seen by Provider: 10/17/24 01:01 Source: patient Mode of arrival: Ambulatory History of Present Illness HPI narrative: Patient presents with a painful and swollen right middle finger after an incident where a display area stand came down on it at approximately 7:00 AM. The patient reports significant pain, swelling, and ecchymosis over the ventral aspect of the distal phalanx, with intermittent numbness. The patient is concerned about potential damage and mentions a history of a previous finger injury that was not properly treated, leading to functional impairment. 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 Related Data Home Medications Medication Instructions Recorded Confirmed Respironics Dreamstation CPAP #1 ea 06/04/19 12/24/21 calcium 500 mg (as 1 tab PO BID 09/15/19 12/24/21 carbonate)-vitamin D3 5 mcg (200 unit) tablet (Calcium 500 + D) levothyroxine 50 mcg tablet 50 mcg PO DAILY 09/15/19 12/24/21 multivitamin 1 tab PO DAILY 09/15/19 12/24/21 turmeric 1 cap PO BID 09/15/19 12/24/21 adalimumab 40 mg/0.8 mL mg SUBCUT 02/24/21 12/24/21 subcutaneous pen kit (Humira Pen) methotrexate sodium 2.5 mg tablet mg 02/24/21 12/24/21 Previous Rx's Medication Instructions Recorded naproxen 500 mg tablet (Naprosyn) 500 mg PO BID PRN pain #20 tabs 09/15/19 Allergies Allergy/AdvReac Type Severity Reaction Status Date / Time adhesive [ADHESIVE] Allergy Unknown FROM SLEEP Unverified 12/24/21 13:44 LAB ON NECK Patient History Medical History (Updated 10/17/24 @ 02:16 by Francois Aguilera MD) Morbid obesity with body mass index of 40.0-49.9 Hypothyroidism Insomnia Obstructive sleep apnea of adult Periodic limb movement disorder (PLMD) Radius fracture Social History marital status: details: to Austyn, lives in [place]. disabled. number of children: 2 household members: spouse lives independently: Yes caregiver/support person: No housing: house pets and animals: Yes (2 dogs) occupational status: employed Smoking Status: Never smoker alcohol intake: current substance use type: does not use Smoking Status: Never smoker alcohol intake frequency: a few times a month Exam Narrative Exam Narrative: General: Well appearing, well nourished, in no distress. Skin: Good turgor, no rash, unusual bruising or prominent lesions. Head: Normocephalic, atraumatic. HEENT: Conjunctiva clear, EOM intact, PERRL, Mucous membranes moist. Neck: Supple, normal ROM. Heart: Regular rate and rhythm, no murmur or gallop or rubs. Lungs: Clear to auscultation. No rales, rhonchi, or wheezes. Abdomen: Soft and nontender. Bowel sounds normal. No mass or hernia. Back: Spine normal without deformity or tenderness, no CVA tenderness. Extremities: Swelling and ecchymosis over the ventral aspect of the distal phalanx of the right middle finger. Intact sensation to light touch.No signs of subungual hematoma. No fracture noted on X-ray. No deformities, edema. Peripheral pulses intact. Neurologic: CN 2-12 normal. Normal sensation and motor exam. Psychiatric: Oriented X3. Normal mood and affect. Initial Vital Signs Initial Vital Signs: Vital Signs Temperature 97.9 F 10/16/24 23:40 Pulse Rate 87 10/16/24 23:40 Respiratory Rate 16 10/16/24 23:40 Blood Pressure 131/64 10/16/24 23:40 Pulse Oximetry 97 10/16/24 23:40 Oxygen Delivery Method Room Air 10/16/24 23:40 Course Orders Ordered: ED Orders 10/16/24 23:44 XR finger RT min 2V Stat Vital Signs Vital signs: Vital Signs - 8 hr 10/16/24 23:40 10/17/24 01:41 Temperature 97.9 F 98 F Pulse Rate 87 75 Respiratory Rate 16 14 Blood Pressure 131/64 135/65 Pulse Oximetry 97 95 Oxygen Delivery Method Room Air Room Air MDM - Extremity Injury (Upper) MDM Narrative Medical decision making narrative: 59-year-old female presenting after dropping a heavy object on a finger in her right hand and experiencing significant swelling and tenderness to the digit. INITIAL EVALUATION AND PLAN: - Elevate the affected finger. - Administer Tylenol or Ibuprofen for pain management as needed. - Follow-up if symptoms persist or worsen. - Differential diagnosis includes but is not limited to: soft tissue injury, contusion, compartment syndrome, infection. On exam patient has swollen distal phalanx but no signs of fracture or tuft fracture on evaluation of the imaging, I reviewed patient's x-ray independently as well as the radiologist review that shows no fracture. Patient had swelling in the distal finger with ecchymosis, she endorses some paresthesias but has sensation to light touch on exam, she has good distal capillary refill on exam with blanching well-perfused extremity. Considered distal phalanx compartment syndrome however at this time believe that this is not likely given good capillary refill, no pain out of proportion, patient has small amount of paresthesias but able to feel my touch. We discussed the risks and benefits of doing a procedure such as a fasciotomy on the digit and through shared decision-making decided that we would give this more time with Tylenol, ibuprofen, elevation and that she would return to the emergency department if she had worsening symptoms, she states that she will also call her orthopedic doctor for re-evaluation. Discharge Plan Departure Patient Disposition: Home Clinical Impression: Finger swelling Activity Restrictions/Additional Instructions: you were seen in the emergency department today for a swelling to the distal aspect of her finger fortunately no fracture was identified. We discussed to be on the look out for signs of worsening blood flow in that extremity evidenced by decreasing color in the extremity worsening numbness worsening pain. Please keep the extremity elevated if possible and do not ice this time. Please return to the emergency department if you have worsening swelling and wished to be re-evaluated as we discussed the potential risk for compartment syndrome in this digit, please make an appointment with the Orthopedic as well for repeat examination Prescriptions: No Action levothyroxine 50 mcg tablet 50 mcg PO DAILY Patient Comments: take 1 tablet by mouth once daily multivitamin Tablet 1 tab PO DAILY calcium carbonate-vitamin D3 [Calcium 500 + D] 500 mg(1,250mg) -200 unit Tablet 1 tab PO BID turmeric 1 cap PO BID naproxen [Naprosyn] 500 mg tablet 500 mg PO BID PRN (Reason: pain) Qty: 20 0RF Humira Pen 40 mg/0.8 mL pen injector kit SUBCUT methotrexate sodium 2.5 mg tablet (DME) Respironics Dreamstation CPAP Qty: 1 Rx Instructions: Pressure: 6-14 cmH2O DME: Cathleen Referrals: Myles Madison MD [Primary Care Provider] - Stand Alone Forms: Patient Portal/API/Survey
[2024-10-17 01:41] VITALS: BP 135/65; PULSE 75; RESP 14; TEMP 36.6; O2SAT 95
== END 2024-10-17 02:22 | disposition home or self-care (01) ==
PROVIDERS: Emergency Provider Emergency Medicine; Family Provider Family Medicine; PCP Family Medicine
DX: M79.644 Pain in right finger(s) (principal); M79.89 Other specified soft tissue disorders; R20.2 Paresthesia of skin; W20.8XXA Other cause of strike by thrown, projected or falling object, initial encounter; Y99.0 Civilian activity done for income or pay
CPT/HCPCS: 73140; 99281; 99283

== ENCOUNTER 2025-07-30 15:15 | Outpatient (RCR) | payer OTHER, SELFPAY ==
--- NOTE | 2025-07-13 11:08 | ST.OPIE ---
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 Madison Reason for Referral Speech disturbances Setting Assessment Location Outpatient Care Visit Type Note Type Initial evaluation Next Note Type Next Note Type Treatment Note Patient Information Identification Type Name Patient History Pt is a 60 year old female seen this date for speech/ language evaluation at the referral of Dr. Madison. Pt reports since April of this year she has had word recall difficulties, specifically I know what I want to say but it won't be there and then I stutter sort of to get it out. Pt reports she also will substitute words without realizing it. She reports this occurs 2- 3x/week and has caused her some concern. 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 Pt with past medical history significant for Rheumatoid Arthritis (RA) and has been taking medication for that for 4 years. 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 Education Level Masters Hearing Hearing Level Normal Previous Therapy Previous Speech- No Language Therapy Subjective Patient Report See under patient history Mental Status Alert,Responsive,Cooperative Assessment Oral Motor No Examination Completed Informal Assessment Receptive Language Yes Normal Expressive Language Yes Normal Pragmatic Language Yes Normal Speech Normal Yes Cognition Normal Yes Formal Assessment Administration Complete Results ST informally assessed Pt's speech and language utilizing Cove Diagnostic Aphasia Examination (BDAE) short form. During conversational and expository speech section, Pt was scored 7/7 in simple social responses. During free conversation discussing what brought her to see me she reported 1x stutter/word finding event on the word living, however ST did not notice until Pt said see there is happened right there, d/t Pt's free flowing speech. She completed picture description with 100% intelligibility, articulatory agility intact, phrase length WNL, grammatical form WNL, melodic intonation WNL, no occurrences of sentence repetition, good auditory comprehension. Voice with normal volume, normal vocal quality and normal rate of speech. She scored 16/16 for word comprehension. She followed multi step commands with 100% accuracy. She scored 6/6 for complex ideational material section. She completed automatic speech tasks and repetition with 100% accuracy. Responsive naming 10/10 and Cove Naming Test short form 15/15. Reading, word identification 100 % accuracy. Findings/Results Language Function Within functional limits Cognitive Function Within functional limits Findings Pt presents with speech and language abilities within functional limits; however, given the patient?s report of increased concern and frustration regarding word- finding difficulties, skilled speech therapy is warranted to provide education and training in word- finding compensatory strategies. Cognitive Communication Deficits Self-awareness of Predictive awareness (able to predict problem; impact Cognitive- of impairments) Communication Deficits Prognosis Prognosis Good Based on Cognitive status Plan of Care Speech-Language Yes Treatment Frequency 1x/week Duration 1-3 sessions Patient/Caregiver Described results of evaluation,Patient expressed Education understanding of evaluation,Patient expressed agreement with goals and treatment plans,Patient requires further education/training Short Term Goals STG 1: Pt will use semantic cues (e.g., describing features, functions) to facilitate word retrieval in structured tasks with 80% accuracy in 4 out of 5 trials . STG 2: Pt will demonstrate the ability to use circumlocution strategies independently when experiencing word-finding difficulty during spontaneous conversation in 3 out of 5 opportunities. Usp Goals LTG 1: Pt will improve word retrieval skills during structured and spontaneous conversation, demonstrating increased accuracy and decreased hesitation in naming or describing familiar objects, people, and events in 90% of opportunities. Discharge Home Recommendations
--- NOTE | 2025-07-13 11:08 | ST.OPPOC ---
Physical, Occupational & Speech Therapy At [facility] Visit Care Team Role Provider Type Myles Madison MD Attending Provider Physician Family Provider Primary Care Provider Referring Provider Address: [address], [place], [address] Speech Pathology Plan of Care Plan of Care Dates 07/12/25-10/12/[address] Madison Patient History Pt is a 60 year old female seen this date for speech/language evaluation at the referral of Dr Kanwal Madison. Pt reports since April of this year she has had word recall difficulties, specifically I know what I want to say but it won't be there and then I stutter sort of to get it out. Pt reports she also will substitute words without realizing it. She reports this occurs 2-3x/week and has caused her some concern . 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 Pt with past medical history significant for Rheumatoid Arthritis (RA) and has been taking medication for that for 4 years. 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 Self-awareness of Cognitive- Predictive awareness (abl Communication Deficits Short Term Goals STG 1: Pt will use semantic cues (e.g., describing features, functions) to facilitate word retrieval in structured tasks with 80% accuracy in 4 out of 5 trials. STG 2: Pt will demonstrate the ability to use circumlocution strategies independently when experiencing word-finding difficulty during spontaneous conversation in 3 out of 5 opportunities. Rn Community Goals LTG 1: Pt will improve word retrieval skills during structured and spontaneous conversation, demonstrating increased accuracy and decreased hesitation in naming or describing familiar objects, people, and events in 90% of opportunities. Comment: Electronically Signed by: JR Vu 07/13/25 [id number] If you are in agreement with this Plan of Care, please return a signed and dated copy. I have reviewed this Plan of Care and certify that the skilled therapy services above are required to meet the patient?s needs. Physician Signature Date Printed Name and Credentials Clinical Instructor Signature Printed Name and Credentials
--- NOTE | 2025-07-30 15:53 | ST.OPDS ---
Visit Care Team Role Provider Type Myles Madison MD Attending Provider Physician Family Provider Primary Care Provider Referring Provider Address: [facility], [place], [address] [facility] Treatment Note [facility] Treatment Note Start: 07/30/25 15:49 Freq: Status: Active Protocol: Document 07/30/25 15:50 MA (Rec: 07/30/25 15:53 MA Desktop) Speech Pathology Treatment Note Session Time Visit Start Time 15:15 Visit Stop Time 15:45 Total Visit Minutes 30 Visit Information Visit Number 2 Plan of Care Dates 07/12/25-10/12/25 Setting Treatment Setting Outpatient Care Next Note Type Next Note Type Treatment Note General Information Patient History Pt is a 60 year old female seen this date for speech/ language evaluation at the referral of Dr. Madison. Pt reports since April of this year she has had word recall difficulties, specifically I know what I want to say but it won't be there and then I stutter sort of to get it out. Pt reports she also will substitute words without realizing it. She reports this occurs 2- 3x/week and has caused her some concern. 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 Pt with past medical history significant for Rheumatoid Arthritis (RA) and has been taking medication for that for 4 years. 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 Subjective Identification Type Name Observations/Patient Pt arrived to therapy on time. Pt reports no recent Presentation occurrences of word finding or stuttering. She states she has been addressing a lot of stressors in her life and believes this has helped. Objective Short Term Goals STG 1: Pt will use semantic cues (e.g., describing features, functions) to facilitate word retrieval in structured tasks with 80% accuracy in 4 out of 5 trials .- MET STG 2: Pt will demonstrate the ability to use circumlocution strategies independently when experiencing word-finding difficulty during spontaneous conversation in 3 out of 5 opportunities.- MET Enterprise [employer] Architect Goals LTG 1: Pt will improve word retrieval skills during structured and spontaneous conversation, demonstrating increased accuracy and decreased hesitation in naming or describing familiar objects, people, and events in 90% of opportunities. - MET Treatment Activities Education related to word finding strategies Education related to discharge recommendations Assessment Patient Response to Excellent Treatment Rehab Potential Excellent Progress Towards Excellent Progress Goals Assessment of ST educated Pt on word finding strategies including Improvement describing and circumlocation. Pt verbalized understanding. Pt reports no word finding or stuttering in the past 17 days since last seen. Pt reports plan to address stress in her life, which may have been causing word finding issues. However, ST recommended Pt continue to be aware and keep track of any word finding/stuttering moments and to return to PCP if they occur. Pt verbalized understanding. Reviewed with Goals,Progress Being Made Patient Patient/Caregiver Excellent Understanding
== END 2025-08-03 09:51 | disposition home or self-care (01) ==
LOC: SP 15:15
PROVIDERS: Family Provider Family Medicine; PCP Family Medicine; Referring Provider Family Medicine; Visit Provider Family Medicine
DX: R47.9 Unspecified speech disturbances (principal)
CPT/HCPCS: 92507; 92523